=== PATIENT | male | born 1945 | race Caucasian/White ===

== ENCOUNTER 2020-02-14 11:11 | Outpatient (REF) | payer MEDICARE, OTHER, SELFPAY ==
[2020-02-14 13:40] LABS: MANUAL DIFF FLAG NO
[2020-02-14 13:45] LABS: Basophils Percent Auto 0.4 % (0-2); Eosinophils Absolute Auto 0.2 X10*3/uL (0.0-0.4); Eosinophils Percent Auto 2.5 % (0-4); Hematocrit 39.3 % (42-52); Hemoglobin 12.9 g/dl (14.0-18.0); Imm Gran Abs Auto 0.02 X10*3/uL (0.00-0.03); Imm Gran Pct Auto 0.3 % (0.0-0.4); Lymphocytes Absolute Auto 1.4 X10*3/uL (1.2-4.9); Lymphocytes Percent Auto 18.4 % (20-40); Mean Corpuscular HGB Conc 32.8 g/dl (31.0-36.0); Mean Corpuscular Volume 91.4 fL (80-98); Mean Platelet Volume 9.8 fL (9.4-12.4); Monocytes Absolute Auto 0.5 X10*3/uL (0.1-1.2); Monocytes Percent Auto 7.1 % (2-11); Neutrophils Absolute Auto 5.2 X10*3/uL (2.0-8.3); Neutrophils Percent Auto 71.3 % (45-73); Platelet Count 260 X10*3/uL (160-400); Red Cell Distribution Width 12.1 % (11.0-16.0); White Blood Count 7.3 X10*3/uL (4.8-10.8)
[2020-02-14 14:02] LABS: Estimated Average Glucose 183 mg/dL
[2020-02-14 14:14] LABS: Alanine Aminotransferase 26 U/L (0-40); Albumin Level 3.9 g/dL (3.5-5.0); Alkaline Phosphatase 70 U/L (39-117); Anion Gap 12 (12-20); Aspartate Amino Transferase 15 U/L (5-37); Bilirubin Total 0.5 mg/dL (0.0-1.0); Blood Urea Nitrogen 19 mg/dL (9-16); Calcium 8.7 mg/dL (8.4-10.2); Carbon Dioxide 29 mmol/L (22-29); Chloride 104 mmol/L (96-108); Estimated Glomerular Filt Rate 58; Glucose Fasting 207 mg/dL (60-99); Potassium 4.2 mmol/l (3.3-5.1); Sodium 141 mmol/L (135-145); Total Protein 6.4 g/dL (6.5-8.0)
[2020-02-14 14:15] LABS: Alanine Aminotransferase 27 U/L (0-40); Albumin Level 3.9 g/dL (3.5-5.0); Alkaline Phosphatase 70 U/L (39-117); Aspartate Amino Transferase 14 U/L (5-37); Bilirubin Direct 0.3 mg/dL (0.0-0.5); Bilirubin Total 0.5 mg/dL (0.0-1.0); Cholesterol 118 mg/dL; HDL Cholesterol 41 mg/dL; LDL Cholesterol Calculated 49 mg/dl; Total Protein 6.3 g/dL (6.5-8.0); Triglycerides 142 mg/dL
[2020-02-14 14:33] LABS: Creatinine Urine 195.75 mg/dL
[2020-02-14 14:47] LABS: Microalbum/Creatinine Ratio Ur 461.3 ug/mg cr
== END 2020-02-14 11:12 | disposition home or self-care (01) ==
LOC: HO.10HDL 11:11
PROVIDERS: Absent Provider Internal Medicine Cardiovascular Disease; Visit Provider Internal Medicine
DX: E11.22 Type 2 diabetes mellitus with diabetic chronic kidney disease (principal); I12.9 Hypertensive chronic kidney disease with stage 1 through stage 4 chronic kidney disease, or unspecified chronic kidney disease; N18.9 Chronic kidney disease, unspecified; I25.10 Atherosclerotic heart disease of native coronary artery without angina pectoris; E78.00 Pure hypercholesterolemia, unspecified; I48.0 Paroxysmal atrial fibrillation
CPT/HCPCS: 36415; 80053; 80061; 80076; 82043; 82248; 83036; 85025

== ENCOUNTER 2020-03-28 14:31 | Outpatient (REF) | payer MEDICARE, OTHER, SELFPAY ==
[2020-03-28 15:24] LABS: Influenza A PCR NEGATIVE (Negative); Influenza B PCR NEGATIVE (Negative); Resp Syncy Virus RNA Qual PCR NEGATIVE (Negative); SARS COV2 PCR INHOUSE NEGATIVE (Negative)
== END 2020-03-28 14:32 | disposition home or self-care (01) ==
LOC: HO.LNP 14:31
PROVIDERS: Visit Provider Internal Medicine
DX: Z20.828 Contact with and (suspected) exposure to other viral communicable diseases (principal)
CPT/HCPCS: 0241U

== ENCOUNTER 2020-07-31 09:50 | Outpatient (REF) | payer MEDICARE, OTHER, SELFPAY ==
[2020-07-31 13:12] LABS: Alanine Aminotransferase 17 U/L (0-40); Albumin Level 3.9 g/dL (3.5-5.0); Alkaline Phosphatase 75 U/L (39-117); Anion Gap 13 (12-20); Aspartate Amino Transferase 14 U/L (5-37); Bilirubin Direct 0.2 mg/dL (0.0-0.5); Bilirubin Total 0.7 mg/dL (0.0-1.0); Blood Urea Nitrogen 15 mg/dL (9-16); Calcium 9.2 mg/dL (8.4-10.2); Carbon Dioxide 28 mmol/L (22-29); Chloride 106 mmol/L (96-108); Cholesterol 160 mg/dL; Estimated Glomerular Filt Rate > 60; Glucose Fasting 216 mg/dL (60-99); HDL Cholesterol 44 mg/dL; LDL Cholesterol Calculated 73 mg/dl; Potassium 3.9 mmol/L (3.3-5.1); Sodium 143 mmol/L (135-145); Total Protein 6.4 g/dL (6.5-8.0); Triglycerides 218 mg/dL
== END 2020-07-31 09:51 | disposition home or self-care (01) ==
LOC: HO.10HDL 09:50
PROVIDERS: Visit Provider Internal Medicine Cardiovascular Disease
DX: E78.00 Pure hypercholesterolemia, unspecified (principal)
CPT/HCPCS: 36415; 80048; 80061; 80076

== ENCOUNTER 2020-09-02 15:01 | Outpatient (REF) | payer MEDICARE, OTHER, SELFPAY ==
[2020-09-02 16:56] LABS: MANUAL DIFF FLAG NO
[2020-09-02 17:01] LABS: Basophils Percent Auto 0.5 % (0-2); Eosinophils Absolute Auto 0.3 X10*3/uL (0.0-0.4); Eosinophils Percent Auto 3.2 % (0-4); Hematocrit 38.9 % (42-52); Hemoglobin 13.1 g/dl (14.0-18.0); Imm Gran Abs Auto 0.04 X10*3/uL (0.00-0.03); Imm Gran Pct Auto 0.5 % (0.0-0.4); Lymphocytes Absolute Auto 1.7 X10*3/uL (1.2-4.9); Lymphocytes Percent Auto 21.3 % (20-40); Mean Corpuscular HGB Conc 33.7 g/dl (31.0-36.0); Mean Corpuscular Hemoglobin 30.2 pg (27.0-33.0); Mean Corpuscular Volume 89.6 fL (80-98); Monocytes Absolute Auto 0.7 X10*3/uL (0.1-1.2); Monocytes Percent Auto 8.3 % (2-11); Neutrophils Absolute Auto 5.3 X10*3/uL (2.0-8.3); Neutrophils Percent Auto 66.2 % (45-73); Platelet Count 247 X10*3/uL (160-400); Red Blood Count 4.34 X10*6/uL (4.60-5.80); Red Cell Distribution Width 12.5 % (11.0-16.0); White Blood Count 8.1 X10*3/uL (4.8-10.8)
[2020-09-02 17:09] LABS: Alanine Aminotransferase 16 U/L (0-40); Albumin Level 3.9 g/dL (3.5-5.0); Alkaline Phosphatase 71 U/L (39-117); Anion Gap 12 (12-20); Aspartate Amino Transferase 13 U/L (5-37); Bilirubin Total 0.8 mg/dL (0.0-1.0); Blood Urea Nitrogen 17 mg/dL (9-16); Calcium 9.1 mg/dL (8.4-10.2); Carbon Dioxide 30 mmol/L (22-29); Chloride 106 mmol/L (96-108); Estimated Glomerular Filt Rate 57; Glucose Random 141 mg/dL (60-115); Potassium 3.9 mmol/L (3.3-5.1); Sodium 144 mmol/L (135-145); Total Protein 6.1 g/dL (6.5-8.0)
[2020-09-02 17:11] LABS: Creatinine Urine 210.44 mg/dL
[2020-09-02 17:14] LABS: Estimated Average Glucose 169 mg/dL; Hemoglobin A1c % 7.5 %
[2020-09-02 18:11] LABS: Microalbum/Creatinine Ratio Ur 1063.4 ug/mg cr
== END 2020-09-02 15:02 | disposition home or self-care (01) ==
LOC: HO.LAB 15:01
PROVIDERS: PCP Internal Medicine; Visit Provider Internal Medicine
DX: I12.9 Hypertensive chronic kidney disease with stage 1 through stage 4 chronic kidney disease, or unspecified chronic kidney disease (principal); N18.9 Chronic kidney disease, unspecified; E11.22 Type 2 diabetes mellitus with diabetic chronic kidney disease; I48.0 Paroxysmal atrial fibrillation; I25.10 Atherosclerotic heart disease of native coronary artery without angina pectoris
CPT/HCPCS: 36415; 80053; 82043; 83036; 85025

== ENCOUNTER 2020-11-26 16:34 | Outpatient (REF) | payer MEDICARE, OTHER, SELFPAY ==
--- NOTE | ~2020-11-26 | US_ITS ---
EXAMINATION: US VENOUS ULTRASOUND WITH DOPPLER LOWER EXTREMITY, LEFT CLINICAL INFORMATION: Left calf pain and swelling COMPARISON: None TECHNIQUE: Ultrasound of the deep veins is performed from the hip to the calf with compression sonography and color and pulse Doppler assessment. Spectral analysis with color-flow imaging is performed. FINDINGS: There is normal venous compression and respiratory variation and augmented flow. The visualized common femoral vein, superficial femoral vein, profunda femoral vein, popliteal vein, and the trifurcation region shows no evidence of deep venous thrombosis. There is no significant popliteal fossa cyst. No popliteal artery aneurysm. US/US venous duplex LE LT IMPRESSION: No acute DVT demonstrated in the left lower extremity.
== END 2020-11-26 16:35 | disposition home or self-care (01) ==
LOC: HO.US 16:34
PROVIDERS: PCP Internal Medicine; Visit Provider Internal Medicine
DX: M79.604 Pain in right leg (principal); R60.0 Localized edema
CPT/HCPCS: 93971

== ENCOUNTER 2020-11-27 09:21 | Outpatient (REF) | payer MEDICARE, OTHER, SELFPAY ==
[2020-11-27 10:59] LABS: D Dimer 209 NG/ML
== END 2020-11-27 09:22 | disposition home or self-care (01) ==
LOC: HO.10HDL 09:21
PROVIDERS: Visit Provider Internal Medicine
DX: I48.91 Unspecified atrial fibrillation (principal); I25.10 Atherosclerotic heart disease of native coronary artery without angina pectoris; R06.02 Shortness of breath
CPT/HCPCS: 36415; 85379; 86140

== ENCOUNTER 2021-02-26 11:42 | Outpatient (REF) | payer MEDICARE, OTHER, SELFPAY ==
[2021-02-26 14:02] LABS: MANUAL DIFF FLAG NO
[2021-02-26 14:12] LABS: Basophils Percent Auto 0.2 % (0-2); Eosinophils Absolute Auto 0.2 X10*3/uL (0.0-0.4); Eosinophils Percent Auto 2.6 % (0-4); Hemoglobin 13.4 g/dl (14.0-18.0); Imm Gran Abs Auto 0.03 X10*3/uL (0.00-0.03); Imm Gran Pct Auto 0.4 % (0.0-0.4); Lymphocytes Absolute Auto 1.6 X10*3/uL (1.2-4.9); Lymphocytes Percent Auto 18.7 % (20-40); Mean Corpuscular HGB Conc 33.5 g/dl (31.0-36.0); Mean Corpuscular Volume 89.7 fL (80.0-98.0); Mean Platelet Volume 9.8 fL (9.4-12.4); Monocytes Absolute Auto 0.6 X10*3/uL (0.1-1.2); Monocytes Percent Auto 7.3 % (2-11); Neutrophils Absolute Auto 5.9 x10*3/uL (2.0-8.3); Neutrophils Percent Auto 70.8 % (45-73); Platelet Count 250 X10*3/uL (160-400); Red Blood Count 4.46 X10*6/uL (4.60-5.80); Red Cell Distribution Width 12.2 % (11.0-16.0); White Blood Count 8.3 X10*3/uL (4.8-10.8)
[2021-02-26 14:22] LABS: Estimated Average Glucose 177 mg/dL; Hemoglobin A1c % 7.8 %
[2021-02-26 14:41] LABS: B Type Natriuretic Peptide 97 pg/mL (<100)
[2021-02-26 14:46] LABS: Creatinine Urine 194.09 mg/dL
[2021-02-26 14:55] LABS: Alanine Aminotransferase 16 U/L (0-40); Albumin Level 3.9 g/dL (3.5-5.0); Alkaline Phosphatase 73 U/L (39-117); Anion Gap 14 (12-20); Aspartate Amino Transferase 12 U/L (5-37); Bilirubin Total 0.8 mg/dL (0.0-1.0); Blood Urea Nitrogen 17 mg/dL (9-16); Calcium 8.9 mg/dL (8.4-10.2); Carbon Dioxide 27 mmol/L (22-29); Chloride 105 mmol/L (96-108); Estimated Glomerular Filt Rate 51; Glucose Random 165 mg/dL (60-115); Iron 93 mcg/dL (45-160); Percent Iron Saturation 30 % (15-50); Sodium 142 mmol/L (135-145); Total Iron Binding Capacity 310 mcg/dL (228-428); Total Protein 6.3 g/dL (6.5-8.0); Unsaturated Iron Binding 217 ug/dL
[2021-02-26 15:32] LABS: Microalbum/Creatinine Ratio Ur 1161.3 ug/mg cr
== END 2021-02-26 11:43 | disposition home or self-care (01) ==
LOC: HO.10HDL 11:42
PROVIDERS: Visit Provider Internal Medicine
DX: I12.9 Hypertensive chronic kidney disease with stage 1 through stage 4 chronic kidney disease, or unspecified chronic kidney disease (principal); M18.9 Osteoarthritis of first carpometacarpal joint, unspecified; E11.22 Type 2 diabetes mellitus with diabetic chronic kidney disease; R06.02 Shortness of breath; D64.9 Anemia, unspecified
CPT/HCPCS: 36415; 80053; 82043; 83036; 83540; 83880; 85025

== ENCOUNTER 2021-08-18 11:21 | Outpatient (REF) | payer MEDICARE, OTHER, SELFPAY ==
[2021-08-18 11:58] LABS: MANUAL DIFF FLAG NO
[2021-08-18 12:27] LABS: Basophils Absolute Auto 0.1 X10*3/uL (0.0-0.2); Basophils Percent Auto 0.7 % (0-2); Eosinophils Absolute Auto 0.4 X10*3/uL (0.0-0.4); Eosinophils Percent Auto 4.1 % (0-4); Hematocrit 37.7 % (42.0-52.0); Hemoglobin 13.1 g/dl (14.0-18.0); Imm Gran Abs Auto 0.04 X10*3/uL (0.00-0.03); Imm Gran Pct Auto 0.5 % (0.0-0.4); Lymphocytes Absolute Auto 1.6 X10*3/uL (1.2-4.9); Lymphocytes Percent Auto 19.1 % (20-40); Mean Corpuscular HGB Conc 34.7 g/dl (31.0-36.0); Mean Corpuscular Hemoglobin 31.1 pg (27.0-33.0); Mean Corpuscular Volume 89.5 fL (80.0-98.0); Mean Platelet Volume 9.8 fL (9.4-12.4); Monocytes Absolute Auto 0.6 X10*3/uL (0.1-1.2); Monocytes Percent Auto 6.7 % (2-11); Neutrophils Absolute Auto 5.9 x10*3/uL (2.0-8.3); Neutrophils Percent Auto 68.9 % (45-73); Platelet Count 257 X10*3/uL (160-400); Red Blood Count 4.21 X10*6/uL (4.60-5.80); Red Cell Distribution Width 12.1 % (11.0-16.0); White Blood Count 8.5 X10*3/uL (4.8-10.8)
[2021-08-18 12:41] LABS: Estimated Average Glucose 217 mg/dL; Hemoglobin A1c % 9.2 %
[2021-08-18 12:44] LABS: Iron 121 mcg/dL (45-160); Magnesium 2.3 mg/dL (1.6-2.6); Percent Iron Saturation 40 % (15-50); Total Iron Binding Capacity 306 mcg/dL (228-428); Unsaturated Iron Binding 185 ug/dL; Uric Acid 6.9 mg/dL (3.4-7.0)
[2021-08-18 12:47] LABS: Alanine Aminotransferase 21 U/L (0-40); Alkaline Phosphatase 78 U/L (39-117); Anion Gap 14 (12-20); Aspartate Amino Transferase 12 U/L (5-37); Bilirubin Total 0.7 mg/dL (0.0-1.0); Blood Urea Nitrogen 33 mg/dL (9-16); Calcium 9.6 mg/dL (8.4-10.2); Carbon Dioxide 23 mmol/L (22-29); Chloride 106 mmol/L (96-108); Estimated Glomerular Filt Rate 29; Glucose Random 328 mg/dL (60-115); Potassium 5.2 mmol/L (3.3-5.1); Sodium 138 mmol/L (135-145); Total Protein 6.7 g/dL (6.5-8.0)
[2021-08-18 13:07] LABS: Ferritin 78 ng/mL (20-250); Vitamin D 25-OH Total 40.8 ng/mL (>30)
[2021-08-18 13:09] LABS: Prostate Specific Antigen 2.16 ng/mL (<0.05-4.0)
[2021-08-18 14:01] LABS: Appearance Urine CLEAR; Color Urine YELLOW; Glucose Urine UA >=1000 MG/DL (NEG); Leukocyte Esterase Urine NEG (NEG); Nitrite Urine NEG (NEG); PH 5.5 (5.0-8.0); Urine Blood NEG (NEG); Urine Ketones NEG (NEG); Urine Protein 1+ MG/DL (NEG-TRACE)
[2021-08-18 14:19] LABS: RBC Urine 0 /HPF (0); Squamous Epithelial Cell Urine TRACE /LPF; WBC Urine 0 /HPF (0-4)
[2021-08-18 14:21] LABS: Amorphous Sediment Urine TRACE /LPF
[2021-08-18 14:29] LABS: Creatinine Urine 85.39 mg/dL
[2021-08-20 13:11] LABS: Calcium (PTHI) 9.5 mg/dL (8.6-10.3); PTHI 30 pg/mL (16-77)
== END 2021-08-18 11:22 | disposition home or self-care (01) ==
LOC: HO.LAB 11:21
PROVIDERS: Absent Provider Internal Medicine; PCP Internal Medicine; Visit Provider Internal Medicine Nephrology
DX: Z12.5 Encounter for screening for malignant neoplasm of prostate (principal); I12.9 Hypertensive chronic kidney disease with stage 1 through stage 4 chronic kidney disease, or unspecified chronic kidney disease; N18.2 Chronic kidney disease, stage 2 (mild); E11.22 Type 2 diabetes mellitus with diabetic chronic kidney disease; I25.10 Atherosclerotic heart disease of native coronary artery without angina pectoris; R30.0 Dysuria
CPT/HCPCS: 36415; 80053; 81001; 82043; 82306; 82728; 83036; 83540; 83735; 83970; 84153; 84550; 85025

== ENCOUNTER 2021-12-04 12:45 | Outpatient (REF) | payer MEDICARE, OTHER, SELFPAY ==
[2021-12-04 14:00] LABS: Appearance Urine Turbid; Color Urine RED; Glucose Urine UA >=1000 mg/dL (Negative); Leukocyte Esterase Urine Moderate (2+) (Negative); Nitrite Urine Positive (Negative); Urine Blood Large (3+) (Negative); Urine Ketones 15 mg/dL (Negative); Urine Protein 300 (3+) mg/dL (Neg-Trace)
[2021-12-04 14:01] LABS: UACC Culture Trigger YES
[2021-12-04 14:18] LABS: MANUAL DIFF FLAG NO
[2021-12-04 14:22] LABS: Bacteria Urine 4+ (None Seen); Hyaline Casts Urine >20 /LPF (0-2); RBC Urine >20 /HPF (0-2); Squamous Epithelial Cell Urine >20 /HPF (0-2); WBC Urine >50 /HPF (0-5)
[2021-12-04 14:31] LABS: Basophils Percent Auto 0.4 % (0-2); Eosinophils Absolute Auto 0.1 X10*3/uL (0.0-0.4); Eosinophils Percent Auto 0.9 % (0-4); Hematocrit 35.3 % (42.0-52.0); Hemoglobin 11.6 g/dl (14.0-18.0); Imm Gran Abs Auto 0.09 X10*3/uL (0.00-0.03); Imm Gran Pct Auto 1.1 % (0.0-0.4); Lymphocytes Absolute Auto 0.6 X10*3/uL (1.2-4.9); Lymphocytes Percent Auto 7.2 % (20-40); Mean Corpuscular HGB Conc 32.9 g/dl (31.0-36.0); Mean Corpuscular Hemoglobin 30.6 pg (27.0-33.0); Mean Corpuscular Volume 93.1 fL (80.0-98.0); Mean Platelet Volume 9.6 fL (9.4-12.4); Monocytes Absolute Auto 0.8 X10*3/uL (0.1-1.2); Neutrophils Absolute Auto 6.9 x10*3/uL (2.0-8.3); Neutrophils Percent Auto 81.4 % (45-73); Platelet Count 277 X10*3/uL (160-400); Red Blood Count 3.79 X10*6/uL (4.60-5.80); Red Cell Distribution Width 12.1 % (11.0-16.0); White Blood Count 8.4 X10*3/uL (4.8-10.8)
[2021-12-04 14:35] LABS: Estimated Average Glucose 232 mg/dL; Hemoglobin A1c % 9.7 %
[2021-12-04 15:12] LABS: Alanine Aminotransferase 16 U/L (0-40); Albumin Level 3.9 g/dL (3.5-5.0); Alkaline Phosphatase 86 U/L (39-117); Anion Gap 19 (12-20); Aspartate Amino Transferase 12 U/L (5-37); Bilirubin Total 0.8 mg/dL (0.0-1.0); Blood Urea Nitrogen 45 mg/dL (9-16); C Reactive Protein 15.22 mg/dL (< or = 0.50); Calcium 8.5 mg/dL (8.4-10.2); Carbon Dioxide 18 mmol/L (22-29); Chloride 106 mmol/L (96-108); Estimated Glomerular Filt Rate 22; Glucose Fasting 283 mg/dL (60-99); Potassium 5.4 mmol/L (3.3-5.1); Sodium 138 mmol/L (135-145); Total Protein 6.7 g/dL (6.5-8.0)
== END 2021-12-04 12:46 | disposition home or self-care (01) ==
LOC: HO.10HDL 12:45
PROVIDERS: Visit Provider Internal Medicine
DX: R30.0 Dysuria (principal); I10 Essential (primary) hypertension; E11.9 Type 2 diabetes mellitus without complications
CPT/HCPCS: 36415; 80053; 81001; 81003; 83036; 85025; 86140; 87086; 87088; 87186

== ENCOUNTER 2022-01-13 14:28 | Outpatient (REF) | payer MEDICARE, OTHER, SELFPAY ==
[2022-01-13 14:50] LABS: MANUAL DIFF FLAG NO
[2022-01-13 15:20] LABS: Basophils Absolute Auto 0.1 X10*3/uL (0.0-0.2); Basophils Percent Auto 0.6 % (0-2); Eosinophils Absolute Auto 0.6 X10*3/uL (0.0-0.4); Eosinophils Percent Auto 6.2 % (0-4); Hemoglobin 11.5 g/dl (14.0-18.0); Imm Gran Abs Auto 0.07 X10*3/uL (0.00-0.03); Imm Gran Pct Auto 0.8 % (0.0-0.4); Lymphocytes Absolute Auto 1.8 X10*3/uL (1.2-4.9); Lymphocytes Percent Auto 19.5 % (20-40); Mean Corpuscular HGB Conc 33.8 g/dl (31.0-36.0); Mean Corpuscular Hemoglobin 30.7 pg (27.0-33.0); Mean Corpuscular Volume 90.9 fL (80.0-98.0); Mean Platelet Volume 9.4 fL (9.4-12.4); Monocytes Absolute Auto 0.6 X10*3/uL (0.1-1.2); Neutrophils Percent Auto 65.9 % (45-73); Platelet Count 284 X10*3/uL (160-400); Red Blood Count 3.74 X10*6/uL (4.60-5.80); Red Cell Distribution Width 12.6 % (11.0-16.0); White Blood Count 9.1 X10*3/uL (4.8-10.8)
[2022-01-13 15:32] LABS: Estimated Average Glucose 229 mg/dL; Hemoglobin A1c % 9.6 %
[2022-01-13 15:46] LABS: Alanine Aminotransferase 36 U/L (0-40); Alkaline Phosphatase 81 U/L (39-117); Anion Gap 16 (12-20); Aspartate Amino Transferase 19 U/L (5-37); Bilirubin Total 0.5 mg/dL (0.0-1.0); Blood Urea Nitrogen 40 mg/dL (9-16); Calcium 8.9 mg/dL (8.4-10.2); Carbon Dioxide 17 mmol/L (22-29); Chloride 110 mmol/L (96-108); Estimated Glomerular Filt Rate 25; Glucose Random 284 mg/dL (60-115); Potassium 5.2 mmol/L (3.3-5.1); Sodium 138 mmol/L (135-145); Total Protein 6.6 g/dL (6.5-8.0)
[2022-01-13 15:53] LABS: Creatinine Urine 56.04 mg/dL; Microalbum/Creatinine Ratio Ur 158.8 ug/mg cr
== END 2022-01-13 14:29 | disposition home or self-care (01) ==
LOC: HO.LAB 14:28
PROVIDERS: PCP Internal Medicine; Visit Provider Internal Medicine
DX: E11.22 Type 2 diabetes mellitus with diabetic chronic kidney disease (principal); I12.9 Hypertensive chronic kidney disease with stage 1 through stage 4 chronic kidney disease, or unspecified chronic kidney disease; I25.10 Atherosclerotic heart disease of native coronary artery without angina pectoris; N18.9 Chronic kidney disease, unspecified; I48.0 Paroxysmal atrial fibrillation
CPT/HCPCS: 36415; 80053; 82043; 83036; 84443; 85025

== ENCOUNTER 2022-01-26 12:24 | Outpatient (REF) | payer MEDICARE, OTHER, SELFPAY ==
[2022-01-26 13:20] LABS: Influenza A PCR NEGATIVE (Negative); Influenza B PCR NEGATIVE (Negative); Resp Syncy Virus RNA Qual PCR NEGATIVE (Negative); SARS COV2 PCR INHOUSE POSITIVE (Negative)
== END 2022-01-26 12:25 | disposition home or self-care (01) ==
LOC: HO.LNP 12:24
PROVIDERS: Visit Provider Internal Medicine
DX: Z20.822 Contact with and (suspected) exposure to COVID-19 (principal); R05.9 Cough, unspecified; R50.9 Fever, unspecified
CPT/HCPCS: 0241U

== ENCOUNTER 2022-06-22 11:44 | Outpatient (REF) | payer MEDICARE, OTHER, SELFPAY ==
[2022-06-22 13:40] LABS: MANUAL DIFF FLAG NO
[2022-06-22 13:54] LABS: Basophils Percent Auto 0.5 % (0-2); Eosinophils Absolute Auto 0.2 X10*3/uL (0.0-0.4); Eosinophils Percent Auto 1.9 % (0-4); Hemoglobin 13.3 g/dl (14.0-18.0); Imm Gran Abs Auto 0.06 X10*3/uL (0.00-0.03); Imm Gran Pct Auto 0.7 % (0.0-0.4); Lymphocytes Absolute Auto 1.5 X10*3/uL (1.2-4.9); Lymphocytes Percent Auto 18.5 % (20-40); Mean Corpuscular HGB Conc 33.3 g/dl (31.0-36.0); Mean Corpuscular Hemoglobin 30.7 pg (27.0-33.0); Mean Corpuscular Volume 92.4 fL (80.0-98.0); Mean Platelet Volume 9.6 fL (9.4-12.4); Monocytes Absolute Auto 0.6 X10*3/uL (0.1-1.2); Monocytes Percent Auto 6.9 % (2-11); Neutrophils Absolute Auto 5.9 x10*3/uL (2.0-8.3); Neutrophils Percent Auto 71.5 % (45-73); Platelet Count 247 X10*3/uL (160-400); Red Blood Count 4.33 X10*6/uL (4.60-5.80); Red Cell Distribution Width 11.7 % (11.0-16.0); White Blood Count 8.2 X10*3/uL (4.8-10.8)
[2022-06-22 14:09] LABS: Estimated Average Glucose 194 mg/dL; Hemoglobin A1c % 8.4 %
[2022-06-22 14:20] LABS: Alanine Aminotransferase 23 U/L (0-40); Albumin Level 4.1 g/dL (3.5-5.0); Alkaline Phosphatase 67 U/L (39-117); Anion Gap 14 (12-20); Aspartate Amino Transferase 14 U/L (5-37); Bilirubin Total 0.6 mg/dL (0.0-1.0); Blood Urea Nitrogen 34 mg/dL (9-16); Calcium 9.3 mg/dL (8.4-10.2); Carbon Dioxide 23 mmol/L (22-29); Chloride 108 mmol/L (96-108); Estimated Glomerular Filt Rate 26; Glucose Random 254 mg/dL (60-115); Potassium 5.8 mmol/L (3.3-5.1); Sodium 139 mmol/L (135-145); Total Protein 6.5 g/dL (6.5-8.0)
[2022-06-22 14:44] LABS: Thyroid Stimulating Hormone 1.86 uIU/mL (0.32-4.0); Vitamin B12 1622 pg/mL (200-900)
[2022-06-22 15:43] LABS: Creatinine Urine 92.45 mg/dL; Microalbum/Creatinine Ratio Ur 85.4 ug/mg cr
== END 2022-06-22 11:45 | disposition home or self-care (01) ==
LOC: HO.10HDL 11:44
PROVIDERS: Visit Provider Internal Medicine
DX: I25.10 Atherosclerotic heart disease of native coronary artery without angina pectoris (principal); I12.9 Hypertensive chronic kidney disease with stage 1 through stage 4 chronic kidney disease, or unspecified chronic kidney disease; E11.22 Type 2 diabetes mellitus with diabetic chronic kidney disease; N18.9 Chronic kidney disease, unspecified; R53.83 Other fatigue
CPT/HCPCS: 36415; 80053; 82043; 82607; 83036; 84443; 85025

== ENCOUNTER 2022-09-21 13:07 | Outpatient (REF) | payer MEDICARE, OTHER, SELFPAY ==
--- NOTE | ~2022-09-21 | XR_ITS ---
EXAMINATION: XR CHEST CLINICAL INFORMATION: Hypertension, coronary artery disease COMPARISON: 08/31/2019 TECHNIQUE: 2 views of the chest were obtained. FINDINGS: There is no gross pneumothorax. Heart size is normal. No pleural effusion. No focal consolidation to suggest pneumonia. Degenerative changes in the thoracic spine. Retrocardiac air-fluid level. XR/XR chest 2V IMPRESSION: No focal consolidation to suggest pneumonia. Retrocardiac air-fluid level. CT scan of 08/03/2018 demonstrated a large hiatal hernia.
[2022-09-21 14:06] LABS: MANUAL DIFF FLAG NO
[2022-09-21 14:14] LABS: Basophils Absolute Auto 0.1 X10*3/uL (0.0-0.2); Basophils Percent Auto 0.6 % (0-2); Eosinophils Absolute Auto 0.2 X10*3/uL (0.0-0.4); Eosinophils Percent Auto 1.9 % (0-4); Hematocrit 36.9 % (42.0-52.0); Hemoglobin 12.4 g/dl (14.0-18.0); Imm Gran Abs Auto 0.15 X10*3/uL (0.00-0.03); Imm Gran Pct Auto 1.8 % (0.0-0.4); Lymphocytes Absolute Auto 1.5 X10*3/uL (1.2-4.9); Lymphocytes Percent Auto 17.9 % (20-40); Mean Corpuscular HGB Conc 33.6 g/dl (31.0-36.0); Mean Corpuscular Hemoglobin 30.9 pg (27.0-33.0); Mean Platelet Volume 9.6 fL (9.4-12.4); Monocytes Absolute Auto 0.6 X10*3/uL (0.1-1.2); Monocytes Percent Auto 7.4 % (2-11); Neutrophils Percent Auto 70.4 % (45-73); Platelet Count 253 X10*3/uL (160-400); Red Blood Count 4.01 X10*6/uL (4.60-5.80); White Blood Count 8.5 X10*3/uL (4.8-10.8)
[2022-09-21 14:23] LABS: D Dimer High Sensitivity < 150 NG/ML
[2022-09-21 14:37] LABS: Estimated Average Glucose 223 mg/dL; Hemoglobin A1c % 9.4 %
[2022-09-21 14:49] LABS: B Type Natriuretic Peptide 29 pg/mL (<100)
[2022-09-21 14:50] LABS: Alanine Aminotransferase 22 U/L (0-40); Alkaline Phosphatase 80 U/L (39-117); Anion Gap 13 (12-20); Aspartate Amino Transferase 14 U/L (5-37); Bilirubin Total 0.6 mg/dL (0.0-1.0); Blood Urea Nitrogen 43 mg/dL (9-16); Calcium 9.6 mg/dL (8.4-10.2); Carbon Dioxide 19 mmol/L (22-29); Chloride 112 mmol/L (96-108); Estimated Glomerular Filt Rate 25; Glucose Random 276 mg/dL (60-115); Potassium 5.8 mmol/L (3.3-5.1); Sodium 138 mmol/L (135-145); Total Protein 7.2 g/dL (6.5-8.0)
[2022-09-21 15:08] LABS: Thyroid Stimulating Hormone 1.59 uIU/mL (0.32-4.0)
== END 2022-09-21 13:08 | disposition home or self-care (01) ==
LOC: HO.10HDL 13:07
PROVIDERS: PCP Internal Medicine; Visit Provider Internal Medicine
DX: I25.10 Atherosclerotic heart disease of native coronary artery without angina pectoris (principal); I12.9 Hypertensive chronic kidney disease with stage 1 through stage 4 chronic kidney disease, or unspecified chronic kidney disease; E11.22 Type 2 diabetes mellitus with diabetic chronic kidney disease; N18.9 Chronic kidney disease, unspecified; R53.83 Other fatigue; I48.0 Paroxysmal atrial fibrillation
CPT/HCPCS: 36415; 71046; 80053; 83036; 83880; 84443; 85025; 85379

== ENCOUNTER 2022-10-09 12:26 | Emergency (ER) | payer MEDICARE, OTHER, SELFPAY ==
--- NOTE | ~2022-10-09 | XR_ITS ---
EXAMINATION: XR CHEST CLINICAL INFORMATION: Shortness of breath COMPARISON: 09/21/2022 TECHNIQUE: 2 views of the chest were obtained. FINDINGS: No acute pulmonary abnormality. Lungs are adequately expanded. No airspace disease, interstitial edema or pleural effusion. Cardiac silhouette is chronically enlarged. Again noted is a large hiatal hernia. Mild hyperkyphosis of the degenerated thoracic spine. Small focus of calcification or intra-articular ossific body projects superior to the glenoid at the left shoulder. XR/XR chest 2V IMPRESSION: * No acute pulmonary disease. * Cardiomegaly without pulmonary edema or pleural effusion. * Large hiatal hernia.
--- NOTE | 2022-10-09 12:31 | ECG_ITS ---
Test Reason : SYMTOMATIC BRADYCARDIA Blood Pressure : / mmHG Vent. Rate : 052 BPM Atrial Rate : 052 BPM P-R Int : 202 ms QRS Dur : 090 ms QT Int : 436 ms P-R-T Axes : 000 -20 001 degrees QTc Int : 405 ms Sinus bradycardia with Premature atrial complexes in a pattern of bigeminy Minimal voltage criteria for LVH, may be normal variant ( R in aVL ) Borderline ECG When compared with ECG of 07-AUG-2018 09:22, Vent. rate has decreased BY 27 BPM Criteria for Inferior infarct are no longer Present T wave inversion no longer evident in Anterolateral leads QT has shortened Referred By: Generic ED Physician Electronically Signed By:JOYCE MCGRATH MD
[2022-10-09 13:05] VITALS: BP 128/77; PULSE 49; RESP 16; TEMP 36.6; O2SAT 99; BMI 31.8
--- NOTE | 2022-10-09 13:05 | ED_ITS ---
HPI - General Adult General Chief complaint: Weakness Stated complaint: symatic Time Seen by Provider: 10/09/22 18:02 Source: patient, family (Son and daughter), RN notes reviewed and old records reviewed Mode of arrival: ambulatory Limitations: no limitations History of Present Illness HPI narrative: 77-year-old male with past medical history significant for AFib on Xarelto, chronic kidney disease presents for evaluation of weakness and shortness of breath. Patient reports he has had increasing shortness of breath on exertion for the last week Denies any chest pain, cough, palpitations He reports that he usually has a slower heart rate but his rate is usually ?in the lower 60s. ? He denies any recent medication changes. Denies any lower extremity edema He follows with [facility] No other complaints or concerns at this time Although the patient does admit that he has been under increased stress recently as his is in the hospital Related Data Allergies Allergy/AdvReac Type Severity Reaction Status Date / Time No Known Allergies Allergy Unverified 12/14/19 15:08 [No Known Allergies*] Review of Systems Constitutional: Constitutional: Denies fatigue and Reports weakness Cardiovascular: Cardiovascular: Denies chest pain, Denies leg edema and Reports dyspnea on exertion Respiratory: Respiratory: Reports dyspnea on exertion Gastrointestinal: Gastrointestinal: Denies abdominal pain, Denies nausea and Denies vomiting Musculoskeletal: Musculoskeletal: Denies back pain Neurologic: Reports weakness Endocrine: Endocrine: Denies fatigue PMFSH Social History Social History Alcohol intake: never Smoked in Last 30 Days: No Use of substances other than those prescribed or required for medical reasons: No Advance Directives: No Advance Directives Information Provided: Yes Physical Exam ED Vital Signs: Vital Signs - 24 hr 10/09/22 13:05 10/09/22 16:53 10/09/22 16:55 Temperature 97.9 F 97.6 F Pulse Rate 49 L 55 55 Respiratory Rate 16 21 H Blood Pressure 128/77 140/50 H 140/50 H Pulse Oximetry 99 98 Oxygen Delivery Method Room Air Room Air 10/09/22 16:56 10/09/22 17:00 Temperature Pulse Rate 71 71 Respiratory Rate Blood Pressure 131/52 L 113/53 L Pulse Oximetry Oxygen Delivery Method BMI result Body Mass Index 31.8 Const General: healthy appearing, comfortable, no acute distress, alert and awake Nutritional Appearance: well nourished Orientation/consciousness: patient oriented x3 HENMT Head: Yes normocephalic and Yes atraumatic Eyes Eyelids: Yes eyelids normal Conjunctivae: conjunctivae normal Sclerae: sclerae normal Corneas: corneas normal Pupils: Equal, round and reactive pupils present EOM: EOMs intact bilaterally Neck Neck: Yes full ROM Resp Effort & Inspection: normal respiratory effort, able to speak in complete sentences, no audible wheezes and not labored Auscultation: clear to auscultation bilaterally Cardio Rate: bradycardic Rhythm: regular rhythm Skin General skin exam: no rashes or lesions noted and elasticity normal Neuro General: patient oriented x3 Cranial nerves: Yes Equal, round and reactive pupils present and Yes Bilaterally intact EOM present Cognition (Neuro): normal cognition Extrem Other: Moving all extremities well without any obvious deformities Course Course Course Narrative: RME: 77 yo male w/PMHx of afib on Xarelto, sent in today by Dr. Skinner after being seen at his office for weakness, SOB on exertion x1 week. EKG in office significant for afib with bradycardia and pauses. No fever, N/V, abd pain, blood in stool. Patient appears pale. HR in 40's. EKG, labs, CXR ordered. Full HPI, ROS and PE to be performed by primary ED provider. Medical Decision Making Medical Decision Making [facility] Narrative: 77-year-old male presents for evaluation of shortness of breath with exertion. He is anticoagulated on Xarelto for history of AFib. His EKG shows sinus rhythm with PACs in a bigeminy pattern. No ischemic changes. While in the ER his heart rate has been averaging approximately 45-50 beats per minute. His blood pressure has been maintaining. This could be contributing to the patient's shortness of breath on exertion. He takes metoprolol 75 mg daily. I asked him to cut this to 25 mg daily until he follows up with Cardiology on Wednesday. His labs were significant for a very mild hyperkalemia of 5.4. His creatinine was 2.08 which is slightly improved from his baseline. The patient's troponin was less than 2.7 Differential Diagnosis Dyspnea on exertion Congestive heart failure Coronary artery disease Cardiac arrhythmia Weakness Pneumonia Failure to thrive Admission/Observation Consideration of admission/observation: Escalation of care including admission/observation considered Lab Data [facility] Lab Attestation statement: I reviewed the patient's lab results. Mild anemia consistent with recent baseline. Slight hyperkalemia to 5.4. Elevated glucose the to 91 with no evidence of DKA. 10/09/22 13:29 10/09/22 13:29 Labs: Lab Results 10/09/22 10/09/22 10/09/22 Range/Units 13:29 13:29 13:29 WBC 10.0 (4.8-10.8) X10*3/uL RBC 3.83 L (4.60-5.80) X10*6/uL Hgb 11.6 L (14.0-18.0) g/dl Hct 35.5 L (42.0-52.0) % MCV 92.7 (80.0-98.0) fL MCH 30.3 (27.0-33.0) pg MCHC 32.7 (31.0-36.0) g/dl RDW 12.5 (11.0-16.0) % Plt Count 227 (160-400) X10*3/uL MPV 9.2 L (9.4-12.4) fL Immature Gran % (Auto) 0.8 H (0.0-0.4) % Neut % (Auto) 73.6 H (45-73) % Lymph % (Auto) 15.5 L (20-40) % Hood % (Auto) 7.3 (2-11) % Eos % (Auto) 2.3 (0-4) % Baso % (Auto) 0.5 (0-2) % Lymph # (Auto) 1.6 (1.2-4.9) X10*3/uL Hood # (Auto) 0.7 (0.1-1.2) X10*3/uL Eos # (Auto) 0.2 (0.0-0.4) X10*3/uL Baso # (Auto) 0.1 (0.0-0.2) X10*3/uL Abs Immat Gran (auto) 0.08 H (0.00-0.03) X10*3/uL Absolute Neuts (auto) 7.4 (2.0-8.3) x10*3/uL Absolute Nucleated RBC 0.000 (0.0-0.012) X10*3/uL Nucleated RBC % (auto) 0.0 (0.0-0.2) /100WBC PT (10.0-13.1) SEC INR (0.9-1.1) Sodium 141 (135-145) mmol/L Potassium 5.4 H (3.3-5.1) mmol/L Chloride 115 H (96-108) mmol/L Carbon Dioxide 18 L (22-29) mmol/L Anion Gap 13 (12-20) BUN 33 H (9-16) mg/dL Creatinine 2.07 H (0.5-1.4) mg/dL Estim Creat Clear Calc 35.4 Estimated GFR 31 Random Glucose 291 H (60-115) mg/dL Calcium 9.7 (8.4-10.2) mg/dL Magnesium 2.4 (1.6-2.6) mg/dL Total Bilirubin 0.7 (0.0-1.0) mg/dL Direct Bilirubin 0.1 (0.0-0.5) mg/dL AST 13 (5-37) U/L ALT 23 (0-40) U/L Alkaline Phosphatase 89 (39-117) U/L Troponin I High Sens < 2.7 (<3.5-35.0) ng/L B-Natriuretic Peptide (<100) pg/mL Total Protein 6.9 (6.5-8.0) g/dL Albumin 3.9 (3.5-5.0) g/dL 10/09/22 10/09/22 Range/Units 13:29 13:29 WBC (4.8-10.8) X10*3/uL RBC (4.60-5.80) X10*6/uL Hgb (14.0-18.0) g/dl Hct (42.0-52.0) % MCV (80.0-98.0) fL MCH (27.0-33.0) pg MCHC (31.0-36.0) g/dl RDW (11.0-16.0) % Plt Count (160-400) X10*3/uL MPV (9.4-12.4) fL Immature Gran % (Auto) (0.0-0.4) % Neut % (Auto) (45-73) % Lymph % (Auto) (20-40) % Hood % (Auto) (2-11) % Eos % (Auto) (0-4) % Baso % (Auto) (0-2) % Lymph # (Auto) (1.2-4.9) X10*3/uL Hood # (Auto) (0.1-1.2) X10*3/uL Eos # (Auto) (0.0-0.4) X10*3/uL Baso # (Auto) (0.0-0.2) X10*3/uL Abs Immat Gran (auto) (0.00-0.03) X10*3/uL Absolute Neuts (auto) (2.0-8.3) x10*3/uL Absolute Nucleated RBC (0.0-0.012) X10*3/uL Nucleated RBC % (auto) (0.0-0.2) /100WBC PT 11.0 (10.0-13.1) SEC INR 1.0 (0.9-1.1) Sodium (135-145) mmol/L Potassium (3.3-5.1) mmol/L Chloride (96-108) mmol/L Carbon Dioxide (22-29) mmol/L Anion Gap (12-20) BUN (9-16) mg/dL Creatinine (0.5-1.4) mg/dL Estim Creat Clear Calc Estimated GFR Random Glucose (60-115) mg/dL Calcium (8.4-10.2) mg/dL Magnesium (1.6-2.6) mg/dL Total Bilirubin (0.0-1.0) mg/dL Direct Bilirubin (0.0-0.5) mg/dL AST (5-37) U/L ALT (0-40) U/L Alkaline Phosphatase (39-117) U/L Troponin I High Sens (<3.5-35.0) ng/L B-Natriuretic Peptide 54 (<100) pg/mL Total Protein (6.5-8.0) g/dL Albumin (3.5-5.0) g/dL Independent Interpretation I performed an independent interpretation of an: EKG (Sinus rhythm with PACs in a bigeminal pattern nonischemic EKG) and Plain X-Ray (No acute pathology) Radiology Impression Discussion of test interpretation with radiology: I have reviewed the radiolog ist's reading. (Enlarged heart with no evidence of heart failure) Discharge Plan Discharge Clinical Impression: Dyspnea on exertion Patient Disposition: Home, Self-Care Instructions: Dyspnea (ED) Additional Instructions: Your workup in the emergency department today was reassuring Your blood counts were slightly low today with a hemoglobin of 11.6 You have had a mild anemia for at least a few years now and is likely related to your chronic kidney disease Your kidney function today is actually slightly better than it has been Your heart rate was slightly low today which may be contributing to your licha rtness of breath with exertion For this reason I want you to take 1/2 a tab of the metoprolol instead of the 1 and half tabs Call your parts counter associate and your primary doctor 1st thing on Wednesday morning to schedule follow-up and explain the changes that we made Return for new or worsening symptoms
--- NOTE | 2022-10-09 13:07 | ECG_ITS ---
Test Reason : WEAKNESS Blood Pressure : / mmHG Vent. Rate : 055 BPM Atrial Rate : 055 BPM P-R Int : 198 ms QRS Dur : 090 ms QT Int : 442 ms P-R-T Axes : 068 -19 000 degrees QTc Int : 422 ms Sinus bradycardia with Premature atrial complexes in a pattern of bigeminy Minimal voltage criteria for LVH, may be normal variant ( R in aVL ) Borderline ECG When compared with ECG of 09-OCT-2022 12:51, No significant change was found Referred By: Marleni Fonseca Electronically Signed By:JOYCE MCGRATH MD
[2022-10-09 13:35] LABS: MANUAL DIFF FLAG NO
[2022-10-09 13:38] LABS: Basophils Absolute Auto 0.1 X10*3/uL (0.0-0.2); Basophils Percent Auto 0.5 % (0-2); Eosinophils Absolute Auto 0.2 X10*3/uL (0.0-0.4); Eosinophils Percent Auto 2.3 % (0-4); Hematocrit 35.5 % (42.0-52.0); Hemoglobin 11.6 g/dl (14.0-18.0); Imm Gran Abs Auto 0.08 X10*3/uL (0.00-0.03); Imm Gran Pct Auto 0.8 % (0.0-0.4); Lymphocytes Absolute Auto 1.6 X10*3/uL (1.2-4.9); Lymphocytes Percent Auto 15.5 % (20-40); Mean Corpuscular HGB Conc 32.7 g/dl (31.0-36.0); Mean Corpuscular Hemoglobin 30.3 pg (27.0-33.0); Mean Corpuscular Volume 92.7 fL (80.0-98.0); Mean Platelet Volume 9.2 fL (9.4-12.4); Monocytes Absolute Auto 0.7 X10*3/uL (0.1-1.2); Monocytes Percent Auto 7.3 % (2-11); Neutrophils Absolute Auto 7.4 x10*3/uL (2.0-8.3); Neutrophils Percent Auto 73.6 % (45-73); Platelet Count 227 X10*3/uL (160-400); Red Blood Count 3.83 X10*6/uL (4.60-5.80); Red Cell Distribution Width 12.5 % (11.0-16.0)
[2022-10-09 13:56] LABS: Alanine Aminotransferase 23 U/L (0-40); Albumin Level 3.9 g/dL (3.5-5.0); Alkaline Phosphatase 89 U/L (39-117); Anion Gap 13 (12-20); Aspartate Amino Transferase 13 U/L (5-37); Bilirubin Direct 0.1 mg/dL (0.0-0.5); Bilirubin Total 0.7 mg/dL (0.0-1.0); Blood Urea Nitrogen 33 mg/dL (9-16); Calcium 9.7 mg/dL (8.4-10.2); Carbon Dioxide 18 mmol/L (22-29); Chloride 115 mmol/L (96-108); Creatinine Clr Calc Pharmacy 35.4; Estimated Glomerular Filt Rate 31; Glucose Random 291 mg/dL (60-115); Magnesium 2.4 mg/dL (1.6-2.6); Potassium 5.4 mmol/L (3.3-5.1); Sodium 141 mmol/L (135-145); Total Protein 6.9 g/dL (6.5-8.0)
[2022-10-09 14:35] LABS: Troponin-I High Sensitivity < 2.7 ng/L (<3.5-35.0)
[2022-10-09 16:53] VITALS: BP 140/50; PULSE 55; RESP 21; TEMP 36.4; O2SAT 98
[2022-10-09 16:55] VITALS: BP 140/50; PULSE 55
[2022-10-09 16:56] VITALS: BP 131/52; PULSE 71
[2022-10-09 17:00] VITALS: BP 113/53; PULSE 71
[2022-10-09 17:08] LABS: B Type Natriuretic Peptide 54 pg/mL (<100)
--- NOTE | 2022-10-09 17:30 | PC.NURSE ---
axox3. mallika irreg rythm on monitor. states there have been changes to cardiac meds recently. no pedal edema. ls cta. no unilat neuro deficits.
[2022-10-09 18:37] VITALS: BP 128/61; PULSE 61; RESP 18; O2SAT 99
== END 2022-10-09 19:23 | disposition home or self-care (01) ==
PROVIDERS: Physician Assistant; Emergency Provider Emergency Medicine; PCP Internal Medicine
DX: R06.02 Shortness of breath (principal); R00.1 Bradycardia, unspecified; Z79.899 Other long term (current) drug therapy
CPT/HCPCS: 36415; 71046; 80048; 80076; 83735; 83880; 84484; 85025; 85610; 93005; 99283; 99284

== ENCOUNTER → 2022-10-09 12:31 | Outpatient (BNV) | payer MEDICARE, OTHER, SELFPAY | PROVIDERS: Emergency Provider Emergency Medicine; PCP Internal Medicine; Visit Provider Internal Medicine Cardiovascular Disease | DX: R00.1 Bradycardia, unspecified (principal) | CPT/HCPCS: 93010 ==

== ENCOUNTER 2023-04-06 09:47 | Outpatient (REF) | payer MEDICARE, OTHER, SELFPAY ==
[2023-04-06 10:03] LABS: MANUAL DIFF FLAG NO
[2023-04-06 10:55] LABS: Basophils Absolute Auto 0.1 X10*3/uL (0.0-0.2); Basophils Percent Auto 0.6 % (0-2); Eosinophils Absolute Auto 0.2 X10*3/uL (0.0-0.4); Eosinophils Percent Auto 2.7 % (0-4); Hematocrit 32.7 % (42.0-52.0); Hemoglobin 10.6 g/dl (14.0-18.0); Imm Gran Abs Auto 0.08 X10*3/uL (0.00-0.03); Imm Gran Pct Auto 0.9 % (0.0-0.4); Lymphocytes Absolute Auto 1.9 X10*3/uL (1.2-4.9); Lymphocytes Percent Auto 21.4 % (20-40); Mean Corpuscular HGB Conc 32.4 g/dl (31.0-36.0); Mean Corpuscular Hemoglobin 30.2 pg (27.0-33.0); Mean Corpuscular Volume 93.2 fL (80.0-98.0); Monocytes Absolute Auto 0.7 X10*3/uL (0.1-1.2); Neutrophils Percent Auto 66.4 % (45-73); Platelet Count 248 X10*3/uL (160-400); Red Blood Count 3.51 X10*6/uL (4.60-5.80); Red Cell Distribution Width 12.2 % (11.0-16.0)
[2023-04-06 11:26] LABS: Estimated Average Glucose 214 mg/dL; Hemoglobin A1c % 9.1 % (<6.0)
[2023-04-06 11:53] LABS: Alanine Aminotransferase 24 U/L (0-40); Albumin Level 3.9 g/dL (3.5-5.0); Alkaline Phosphatase 65 U/L (39-117); Anion Gap 14 (12-20); Aspartate Amino Transferase 15 U/L (5-37); Bilirubin Total 0.4 mg/dL (0.0-1.0); Blood Urea Nitrogen 37 mg/dL (9-16); Calcium 9.3 mg/dL (8.4-10.2); Carbon Dioxide 17 mmol/L (22-29); Chloride 114 mmol/L (96-108); Estimated Glomerular Filt Rate 24; Glucose Random 236 mg/dL (60-115); Iron 107 mcg/dL (45-160); Percent Iron Saturation 45 % (15-50); Potassium 5.5 mmol/L (3.3-5.1); Sodium 139 mmol/L (135-145); Total Iron Binding Capacity 236 mcg/dL (228-428); Total Protein 6.6 g/dL (6.5-8.0); Unsaturated Iron Binding 129 ug/dL
== END 2023-04-06 09:48 | disposition home or self-care (01) ==
LOC: HO.LAB 09:47
PROVIDERS: PCP Internal Medicine; Visit Provider Internal Medicine
DX: E11.9 Type 2 diabetes mellitus without complications (principal); D64.9 Anemia, unspecified; N18.9 Chronic kidney disease, unspecified
CPT/HCPCS: 36415; 80053; 83036; 83540; 85025

== ENCOUNTER → 2023-06-23 14:43 | Outpatient (REF) | payer MEDICARE, OTHER, SELFPAY ==
--- NOTE | 2023-06-23 14:46 | CA_ITS ---
Transthoracic Echocardiogram Patient (Last, First, Middle): Garrick Diallo W Gender: Male Date of : 1945 Age: 78 Procedure Date: 06/23/2023 Procedure Type: Transthoracic Echocardiogram Location: OP Height: 180.34 cm Weight: 101.15 kg BSA: 2.21 m2 Heart Rate: bpm BP: 110 / 68 mmHg Hotel Services Supervisor: BIRGIT Referring MD: Andres Skinner MD Home Theater Installer: Dylon Jefferson MD Symptoms: AFIB FATIGUE I48.91 Study Quality: Adequate ECG Rhythm: Atrial Fibrillation Conclusions: - 1. Normal LV ejection fraction 55-60% with mild LVH 2. Mild mitral regurgitation 3. Normal measured RV systolic pressure 4. Upper limits of normal ascending aortic size 5. No gross pericardial effusion Findings Left Ventricle Normal left ventricular size and systolic function. There is mildly increased left ventricular wall thickness. The visually estimated ejection fraction is between 55-60%. Diastolic function is indeterminate on the basis of available data. Right Ventricle Normal right ventricular cavity size and systolic function. Atria The left atrium is likely dilated. Interatrial shunt cannot be excluded. The right atrium was not well visualized. Aortic Valve Normal aortic valve structure and function. There is no aortic valve stenosis. There is no aortic valve regurgitation. Mitral Valve There is mild anterior and posterior mitral leaflet thickening. There is mild mitral annular calcification. There is mild mitral valve regurgitation. There is no mitral valve stenosis. Pulmonic Valve The pulmonic valve is likely normal. There is trace pulmonic valve regurgitation. Tricuspid Valve Normal tricuspid valve structure. There is mild tricuspid valve regurgitation. The right ventricular systolic pressure is normal. The right ventricular systolic pressure is 31 mmHg. Normal right atrial pressure. There is no evidence of pulmonary hypertension. Great Vessels The pulmonary artery was not well visualized. Venous The inferior vena cava is normal in size and collapses greater than 50% with inspiration. Pericardium/Pleural There is no evidence of pericardial effusion. Prior Study Comparison Changes noted compared to prior study dated: 08/05/2018. RV systolic pressure is within normal limits Measurements 2D Linear Measurements IVSd: 1.29 0.6-0.9/0.6-1.0 cm LVIDd: 5.01 3.9-5.3/4.2-5.9 cm LVIDd Index: 2.27 2.4-3.2/2.2-3.1 cm/m2 LVIDs: 3.00 2.0-3.6 cm LVPWd: 1.17 0.7-1.1 cm LA Diam: 3.50 2.7-3.8/3.0-4.0 cm LAIDs Index: 1.58 1.5-2.3 cm/m2 LV Mass: 302.72 67-162/88-224 g LV Mass Index: 136.98 43-95/49-115 g/m2 LVOT Diam: 2.30 3.0+(-)1.3 cm 2D Systolic Function EF 4C: 53.30 >55% EF 2C: 55.50 >55% EF BiP: 55.90 >55% Mitral Valve MV Pk E: 0.63 MV PK A: 0.64 MV Decel Time: 306.00 E/A: 1.00 E'Lateral: 7.27 E'Medial: 5.05 E/E' Med: 12.40 E/E' Lat: 8.60 PHT: 89.00 MVA PHT: 2.47 Decel [place]: 2.11 Aortic Valve AoV Pk Tobias: 1.90 AoV Mn Tobias: 1.09 AoV VTI: 0.36 AoV Pk Grad: 14.00 Aov Mn Grad: 6.00 ELYSE Cont.VTI: 2.61 LVOT LVOT Pk Tobias: 1.01 LVOT Mn Tobias: 0.59 LVOT VTI: 0.23 LVOT Pk Grad: 4.00 LVOT Mn Grad: 2.00 LVOT Diam: 2.30 LVOT Area: 4.15 Diastolic Function MV Pk E: 0.63 MV Pk A: 0.64 E/A: 1.00 E'Medial: 5.05 E/E' Med: 12.40 E' Laterial: 7.27 E/E' Lat: 8.60 Right Ventricle TAPSE (mm): 26.70 TVS' Tobias: 16.10 Tricuspid Valve TR Pk Tobias: 2.66 TR Pk Grad: 28.00 RA Press: 3.00 RVSP: 31.00 Great Vessels Aorta Sinus of Valsalva: 3.45 2.0-3.[address] [place]: 2.62 1.7-3.4 cm Ao Asc: 3.60 2.1-3.4 cm Updated in Other Vendor System with Status of Final Dylon Li MD electronically signed on 06/24/2023 12:34:28 PM with status of Final
== END ==
LOC: HO.CARD 14:43
PROVIDERS: PCP Internal Medicine; Visit Provider Internal Medicine
DX: I48.91 Unspecified atrial fibrillation (principal)
CPT/HCPCS: 93306

== ENCOUNTER → 2023-06-23 14:46 | Outpatient (BNV) | payer MEDICARE, OTHER, SELFPAY | PROVIDERS: PCP Internal Medicine; Visit Provider Internal Medicine Cardiovascular Disease | DX: I34.0 Nonrheumatic mitral (valve) insufficiency (principal); I34.81 Nonrheumatic mitral (valve) annulus calcification | CPT/HCPCS: 93306 ==

== ENCOUNTER 2023-06-29 12:07 | Outpatient (REF) | payer MEDICARE, OTHER, SELFPAY ==
[2023-06-29 12:38] LABS: MANUAL DIFF FLAG NO
[2023-06-29 13:21] LABS: Basophils Absolute Auto 0.1 X10*3/uL (0.0-0.2); Basophils Percent Auto 0.7 % (0-2); Eosinophils Absolute Auto 0.1 X10*3/uL (0.0-0.4); Hematocrit 34.6 % (42.0-52.0); Hemoglobin 11.5 g/dl (14.0-18.0); Imm Gran Abs Auto 0.05 X10*3/uL (0.00-0.03); Imm Gran Pct Auto 0.7 % (0.0-0.4); Lymphocytes Absolute Auto 1.5 X10*3/uL (1.2-4.9); Lymphocytes Percent Auto 19.3 % (20-40); Mean Corpuscular HGB Conc 33.2 g/dl (31.0-36.0); Mean Corpuscular Hemoglobin 30.3 pg (27.0-33.0); Mean Corpuscular Volume 91.1 fL (80.0-98.0); Mean Platelet Volume 9.5 fL (9.4-12.4); Monocytes Absolute Auto 0.5 X10*3/uL (0.1-1.2); Monocytes Percent Auto 6.9 % (2-11); Neutrophils Absolute Auto 5.5 x10*3/uL (2.0-8.3); Neutrophils Percent Auto 71.4 % (45-73); Platelet Count 227 X10*3/uL (160-400); Red Cell Distribution Width 11.9 % (11.0-16.0); White Blood Count 7.7 X10*3/uL (4.8-10.8)
[2023-06-29 13:32] LABS: Estimated Average Glucose 214 mg/dL; Hemoglobin A1c % 9.1 % (<6.0)
[2023-06-29 14:01] LABS: Anion Gap 12 (12-20); Blood Urea Nitrogen 37 mg/dL (9-16); Calcium 8.9 mg/dL (8.4-10.2); Carbon Dioxide 20 mmol/L (22-29); Chloride 114 mmol/L (96-108); Estimated Glomerular Filt Rate 27; Iron 120 mcg/dL (45-160); Magnesium 2.1 mg/dL (1.6-2.6); Parathyroid Hormone Intact 118.5 pg/mL (8.7-77.1); Percent Iron Saturation 50 % (15-50); Potassium 5.9 mmol/L (3.3-5.1); Sodium 140 mmol/L (135-145); Total Iron Binding Capacity 239 mcg/dL (228-428); Unsaturated Iron Binding 119 ug/dL
[2023-06-29 14:03] LABS: Creatinine Urine 88.88 mg/dL; Creatinine Urine 89.79 mg/dL; Microalbum/Creatinine Ratio Ur 50.6 ug/mg cr (<30); Protein/Creatinine Ratio, Ur 0.17 (<0.2); Total Protein Urine Random 15 mg/dL (<12)
[2023-06-29 14:21] LABS: Ferritin 152 ng/mL (20-250); Vitamin B12 955 pg/mL (200-900)
[2023-06-29 14:53] LABS: Alanine Aminotransferase 34 U/L (0-40); Albumin Level 3.9 g/dL (3.5-5.0); Alkaline Phosphatase 72 U/L (39-117); Anion Gap 12 (12-20); Aspartate Amino Transferase 17 U/L (5-37); Bilirubin Total 0.5 mg/dL (0.0-1.0); Blood Urea Nitrogen 36 mg/dL (9-16); Carbon Dioxide 20 mmol/L (22-29); Chloride 114 mmol/L (96-108); Estimated Glomerular Filt Rate 26; Glucose Random 269 mg/dL (60-115); Sodium 140 mmol/L (135-145); Total Protein 6.8 g/dL (6.5-8.0)
== END 2023-06-29 12:08 | disposition home or self-care (01) ==
LOC: HO.LAB 12:07
PROVIDERS: Absent Provider Internal Medicine; PCP Internal Medicine; Visit Provider Internal Medicine Nephrology
DX: E11.22 Type 2 diabetes mellitus with diabetic chronic kidney disease (principal); N18.2 Chronic kidney disease, stage 2 (mild); I25.10 Atherosclerotic heart disease of native coronary artery without angina pectoris; I12.9 Hypertensive chronic kidney disease with stage 1 through stage 4 chronic kidney disease, or unspecified chronic kidney disease; D50.8 Other iron deficiency anemias; R53.83 Other fatigue
CPT/HCPCS: 36415; 80051; 80053; 82043; 82306; 82310; 82565; 82570; 82607; 82728; 83036; 83540; 83735; 83970; 84156; 84520; 85025

== ENCOUNTER 2023-06-30 12:23 | Outpatient (REF) | payer MEDICARE, OTHER, SELFPAY ==
[2023-06-30 14:10] LABS: Anion Gap 13 (12-20); Blood Urea Nitrogen 36 mg/dL (9-16); Calcium 8.8 mg/dL (8.4-10.2); Carbon Dioxide 21 mmol/L (22-29); Chloride 112 mmol/L (96-108); Estimated Glomerular Filt Rate 26; Glucose Random 270 mg/dL (60-115); Potassium 5.4 mmol/L (3.3-5.1); Sodium 141 mmol/L (135-145)
== END 2023-06-30 12:24 | disposition home or self-care (01) ==
LOC: HO.LAB 12:23
PROVIDERS: PCP Internal Medicine; Visit Provider Internal Medicine
DX: E11.22 Type 2 diabetes mellitus with diabetic chronic kidney disease (principal); N18.9 Chronic kidney disease, unspecified; R79.89 Other specified abnormal findings of blood chemistry
CPT/HCPCS: 36415; 80048

== ENCOUNTER 2023-07-08 12:29 | Outpatient (REF) | payer MEDICARE, OTHER, SELFPAY ==
[2023-07-08 14:33] LABS: Anion Gap 11 (12-20); Blood Urea Nitrogen 34 mg/dL (9-16); Calcium 9.2 mg/dL (8.4-10.2); Carbon Dioxide 23 mmol/L (22-29); Chloride 111 mmol/L (96-108); Estimated Glomerular Filt Rate 28; Glucose Random 243 mg/dL (60-115); Potassium 5.4 mmol/L (3.3-5.1); Sodium 140 mmol/L (135-145)
== END 2023-07-08 12:30 | disposition home or self-care (01) ==
LOC: HO.LAB 12:29
PROVIDERS: PCP Internal Medicine; Visit Provider Internal Medicine
DX: N18.9 Chronic kidney disease, unspecified (principal)
CPT/HCPCS: 36415; 80048

== ENCOUNTER 2023-09-27 12:03 | Outpatient (REF) | payer MEDICARE, OTHER, SELFPAY ==
[2023-09-27 13:34] LABS: Anion Gap 13 (12-20); Blood Urea Nitrogen 45 mg/dL (9-16); Calcium 9.5 mg/dL (8.4-10.2); Carbon Dioxide 21 mmol/L (22-29); Chloride 108 mmol/L (96-108); Estimated Glomerular Filt Rate 25; Glucose Random 314 mg/dL (60-115); Potassium 6.4 mmol/L (3.3-5.1); Sodium 136 mmol/L (135-145)
[2023-09-27 13:47] LABS: Estimated Average Glucose 280 mg/dL; Hemoglobin A1c % 11.4 % (<6.0)
== END 2023-09-27 12:04 | disposition home or self-care (01) ==
LOC: HO.LAB 12:03
PROVIDERS: PCP Internal Medicine; Visit Provider Internal Medicine
DX: Z13.89 Encounter for screening for other disorder (principal)
CPT/HCPCS: 36415; 80048; 83036

== ENCOUNTER 2023-09-27 16:46 | Inpatient (IN) | payer MEDICARE, OTHER, SELFPAY ==
[2023-09-27 16:50] VITALS: BP 139/51; PULSE 63; RESP 18; TEMP 35.9; O2SAT 97; BMI 32.0
--- NOTE | 2023-09-27 16:54 | ED.GENADULT ---
HPI - General Adult General Chief complaint: Recheck/Abnormal Lab/Rx Stated complaint: elev potassium Time Seen by Provider: 09/27/23 19:22 Source: patient Mode of arrival: ambulatory Limitations: no limitations History of Present Illness HPI narrative: This is an 78-year-old man with a past medical history of hypertension, hyperlipidemia, CKD, [id number] diabetes mellitus, paroxysmal atrial fibrillation (on Xarelto), CAD status post stents 20 years ago who presents for evaluation elevated potassium. He states feeling well and has no complaints. Patient reports that he had blood work done earlier and was notified by his primary care doctor that he should go to the emergency room due to elevated potassium. He states that he has had elevated potassium in the past and reports that they check his blood work every 3 months. He states no chest pain, dyspnea, headache, neck pain, fevers, chills, back pain, abdominal pain, nausea/vomiting, lightheadedness or syncope. Related Data Allergies Allergy/AdvReac Type Severity Reaction Status Date / Time No Known Allergies Allergy Verified 09/27/23 16:50 [No Known Allergies*] Review of Systems Review of Systems: ROS as per HPI [facility], [facility] Past Medical History Medical History CKD (chronic kidney disease), stage IV HLD (hyperlipidemia) Hypertension Paroxysmal atrial fibrillation Type 2 diabetes mellitus Social History Social History Alcohol intake: never Advance Directives: No Advance Directives Information Provided: No Do you have a plan to hurt others: No Plan Physical Exam ED Vital Signs: Vital Signs - 24 hr 09/27/23 16:50 09/27/23 19:22 Temperature 96.6 F L 97.4 F Pulse Rate 63 60 Respiratory Rate 18 16 Blood Pressure 139/51 L 140/56 H Pulse Oximetry 97 99 Oxygen Delivery Method Room Air Room Air BMI result Body Mass Index 32.0 Gen: NAD, AOx3 HEENT: NCAT, EOMI, normal conjunctiva CV: RRR Pulm: CTAB, no increased work of breathing GI: Soft, NTND, no rebound, guarding or rigidity Neuro: Grossly non focal Course Course Course Narrative: RME performed by Lana Manzo PA-C. Patient is an 78 year old assigned male at presenting to the emergency department with elevated potassium. Patient states he is a type 2 diabetic and he was getting his labs checked and told he has an elevated potassium of 6.4. Detailed physical exam and review of systems are deferred to the primary special educator. EKG and labs ordered. compensation expert made aware. Medications Administered Discontinued Medications Generic Name Dose Route Start Last Admin Trade Name Linda PRN Reason Stop Dose Admin Calcium Gluconate 1 gm in 50 mls @ 50 mls/hr 09/27/23 19:23 09/27/23 20:20 Calcium Gluconate IV 09/27/23 20:22 50 mls/hr ONCE ONE Administration Insulin Human Regular 5 unit 09/27/23 19:24 09/27/23 20:20 Insulin Regular, Human 100 Unit/Ml 10 Ml Vial IVPUSH 09/27/23 19:25 5 unit ONCE ONE Administration Medical Decision Making Medical Decision Making [facility] Narrative: Differential diagnosis includes, but is not limited to hyperkalemia, acute kidney injury, arrhythmia. Patient is afebrile and hemodynamically stable on room air. Exam is benign and reassuring. I reviewed and interpreted labs, which are notable for hyperkalemia of 6.4-> 6.0. Patient is hyperglycemic to 414 -> 389. Anion gap is within normal limits at 16 and I do not suspect diabetic ketoacidosis. Otherwise labs are reassuring and noncontributory. Patient appears to be at baseline renal function with a creatinine of 2.51 -> 2.63 (creatinine ranging 2.07-2.61). I reviewed and interpreted EKG, which is unremarkable for any acute findings without electrocardiographic changes suggestive of hyperkalemia. Regardless, the patient is provided a temporizing measures with calcium and insulin. Given cardiac history on loop diuretic, patient is provided gentle fluids with 500 cc IV LR. Case and management discussed with admitting hospitalist. Patient is admitted for further workup and management. Admission/Observation Consideration of admission/observation: Escalation of care including admission/observation considered Consult Healthcare Provider Management of the patient was discussed with: Hospitalist Lab Data [facility] Lab Attestation statement: I reviewed the patient's lab results. 09/27/23 18:12 09/27/23 18:12 Labs: Lab Results 09/27/23 09/27/23 Range/Units 18:12 19:28 WBC 8.4 (4.8-10.8) X10*3/uL RBC 4.19 L (4.60-5.80) X10*6/uL Hgb 13.1 L (14.0-18.0) g/dl Hct 38.6 L (42.0-52.0) % MCV 92.1 (80.0-98.0) fL MCH 31.3 (27.0-33.0) pg MCHC 33.9 (31.0-36.0) g/dl RDW 11.5 (11.0-16.0) % Plt Count 220 (160-400) X10*3/uL MPV 9.5 (9.4-12.4) fL Immature Gran % (Auto) 0.5 H (0.0-0.4) % Neut % (Auto) 72.2 (45-73) % Lymph % (Auto) 17.9 L (20-40) % [place] % (Auto) 7.2 (2-11) % Eos % (Auto) 1.8 (0-4) % Baso % (Auto) 0.4 (0-2) % Lymph # (Auto) 1.5 (1.2-4.9) X10*3/uL [place] # (Auto) 0.6 (0.1-1.2) X10*3/uL Eos # (Auto) 0.2 (0.0-0.4) X10*3/uL Baso # (Auto) 0.0 (0.0-0.2) X10*3/uL Abs Immat Gran (auto) 0.04 H (0.00-0.03) X10*3/uL Absolute Neuts (auto) 6.1 (2.0-8.3) x10*3/uL Absolute Nucleated RBC 0.000 (0.0-0.012) X10*3/uL Nucleated RBC % (auto) 0.0 (0.0-0.2) /100WBC Sodium 135 (135-145) mmol/L Potassium 6.0 H* (3.3-5.1) mmol/L Chloride 110 H (96-108) mmol/L Carbon Dioxide 15 L (22-29) mmol/L Anion Gap 16 (12-20) BUN 48 H (9-16) mg/dL Creatinine 2.63 H (0.5-1.4) mg/dL Estim Creat Clear Calc 26.6 Estimated GFR 24 POC Glucose 389 H* (60-115) mg/dL Random Glucose 414 H* (60-115) mg/dL Calcium 9.5 (8.4-10.2) mg/dL Magnesium 2.4 (1.6-2.6) mg/dL Total Bilirubin 0.3 (0.0-1.0) mg/dL AST 14 (5-37) U/L ALT 21 (0-40) U/L Alkaline Phosphatase 68 (39-117) U/L Troponin I High Sens < 2.7 (<3.5-35.0) ng/L Total Protein 7.0 (6.5-8.0) g/dL Albumin 4.0 (3.5-5.0) g/dL Influenza Type A (PCR) NEGATIVE (Negative) Influenza Type B (PCR) NEGATIVE (Negative) RSV RNA Qual (PCR) NEGATIVE (Negative) SARS-CoV-2 RNA (RT-PCR) NEGATIVE (Negative) Independent Interpretation I performed an independent interpretation of an: EKG Interpretation: EKG shows sinus bradycardia 59 beats per minute, DE 170, QRS 78, QTC 401, no peaked T-waves, no STEMI Critical Care Time Critical Care Time Attestation: Critical Care Time: A total of 40 minutes spent in direct patient care with coordinating critical resuscitation, procedures, reviewing records, discussing with consultants, reviewing labs, and/or managing patient. Discharge Plan Discharge Clinical Impression: Hyperkalemia Patient Disposition: Admitted As Inpatient
--- NOTE | 2023-09-27 16:56 | ECG_ITS ---
Test Reason : HYPERKALEMIA Blood Pressure : / mmHG Vent. Rate : 059 BPM Atrial Rate : 059 BPM P-R Int : 170 ms QRS Dur : 078 ms QT Int : 406 ms P-R-T Axes : -26 -23 -06 degrees QTc Int : 401 ms Sinus bradycardia with sinus arrhythmia Minimal voltage criteria for LVH, may be normal variant ( R in aVL ) Inferior infarct , age undetermined Possible Anterior infarct , age undetermined Abnormal ECG When compared with ECG of 09-OCT-2022 13:13, Premature atrial complexes are no longer Present Referred By: Lana Manzo Electronically Signed By:COSMO AGARWAL
[2023-09-27 18:17] LABS: MANUAL DIFF FLAG NO
[2023-09-27 18:19] LABS: Basophils Percent Auto 0.4 % (0-2); Eosinophils Absolute Auto 0.2 X10*3/uL (0.0-0.4); Eosinophils Percent Auto 1.8 % (0-4); Hematocrit 38.6 % (42.0-52.0); Hemoglobin 13.1 g/dl (14.0-18.0); Imm Gran Abs Auto 0.04 X10*3/uL (0.00-0.03); Imm Gran Pct Auto 0.5 % (0.0-0.4); Lymphocytes Absolute Auto 1.5 X10*3/uL (1.2-4.9); Lymphocytes Percent Auto 17.9 % (20-40); Mean Corpuscular HGB Conc 33.9 g/dl (31.0-36.0); Mean Corpuscular Hemoglobin 31.3 pg (27.0-33.0); Mean Corpuscular Volume 92.1 fL (80.0-98.0); Mean Platelet Volume 9.5 fL (9.4-12.4); Monocytes Absolute Auto 0.6 X10*3/uL (0.1-1.2); Monocytes Percent Auto 7.2 % (2-11); Neutrophils Absolute Auto 6.1 x10*3/uL (2.0-8.3); Neutrophils Percent Auto 72.2 % (45-73); Platelet Count 220 X10*3/uL (160-400); Red Blood Count 4.19 X10*6/uL (4.60-5.80); Red Cell Distribution Width 11.5 % (11.0-16.0); White Blood Count 8.4 X10*3/uL (4.8-10.8)
[2023-09-27 18:48] LABS: Troponin-I High Sensitivity < 2.7 ng/L (<3.5-35.0)
[2023-09-27 18:55] LABS: Influenza A PCR NEGATIVE (Negative); Influenza B PCR NEGATIVE (Negative); Resp Syncy Virus RNA Qual PCR NEGATIVE (Negative); SARS COV2 PCR INHOUSE NEGATIVE (Negative)
[2023-09-27 19:05] LABS: Alanine Aminotransferase 21 U/L (0-40); Alkaline Phosphatase 68 U/L (39-117); Anion Gap 16 (12-20); Aspartate Amino Transferase 14 U/L (5-37); Bilirubin Total 0.3 mg/dL (0.0-1.0); Blood Urea Nitrogen 48 mg/dL (9-16); Calcium 9.5 mg/dL (8.4-10.2); Carbon Dioxide 15 mmol/L (22-29); Chloride 110 mmol/L (96-108); Creatinine Clr Calc Pharmacy 26.6; Estimated Glomerular Filt Rate 24; Glucose Random 414 mg/dL (60-115); Magnesium 2.4 mg/dL (1.6-2.6); Sodium 135 mmol/L (135-145)
[2023-09-27 19:22] VITALS: BP 140/56; PULSE 60; RESP 16; TEMP 36.3; O2SAT 99
--- NOTE | 2023-09-27 19:29 | MHC.EDTECH ---
THIS PCT JUST ASSUMED CARE OF PATIENT ,VITALS TAKEN ,BLOOD SUGAR CHECK ,PROVIDER AWARE OF PATIENT HIGH BLOOD SUGAR .
[2023-09-27 19:39] LABS: Glucose, Whole Blood 389 mg/dL (60-115)
--- NOTE | 2023-09-27 20:08 | PM.IMHP ---
History of Present Illness Date of Service: 09/27/23 Attending physician on admission: Zana Diaz Chief Complaint: abn labs 78-year-old male with history of owa-tzxiwqo-lrifgfhcg type 2 diabetes, hypertension, CKD stage 4, paroxysmal atrial fibrillation anticoagulated with Xarelto, and coronary artery disease presented to the ED earlier today after being contacted by PCP office for abnormal labs. Reports his potassium levels are chronically elevated but today were significantly elevated at 6.4 and was advised to come to the ED for further evaluation. He is asymptomatic. Denies fevers, chills, nausea, vomiting, muscle aches, lightheadedness, palpitations, shortness breath, chest pain. Since arrival, vital signs are stable. Hematology studies significant only for a chronic normocytic anemia. Creatinine baseline at 2.63, BUN 48. Potassium 6.0, chloride 110, CO2 15. Glucose on arrival for 14 with recheck 389. Troponin undetectable. Negative for COVID-19, RSV, flu. EKG without any peaked T-waves. In ED, has been given calcium gluconate, 5 units regular insulin, and IV fluids. He will be admitted for further management of acute on chronic hyperkalemia. Review of Systems Review of Systems: Yes all other systems are reviewed and are negative [facility] Medical History CKD (chronic kidney disease), stage IV HLD (hyperlipidemia) Hypertension Paroxysmal atrial fibrillation Type 2 diabetes mellitus Social History Alcohol intake: never Smoked in Last 30 Days: No Use of substances other than those prescribed or required for medical reasons: No Advance Directives: No Advance Directives Information Provided: No Do you have a plan to hurt others: No Plan Meds Allergies Allergy/AdvReac Type Severity Reaction Status Date / Time No Known Allergies Allergy Verified 09/27/23 16:50 [No Known Allergies*] Active Medications: Current Medications Glucose (Glucose Gel 15 Gm Gel..Gram.) 15 gm PO Q15M PRN; Protocol PRN Reason: per Hypoglycemia Standing Ord. Calcium Gluconate (Calcium Gluconate) 1 gm in 50 mls @ 50 mls/hr IV ONCE ONE Stop: 09/27/23 20:22 Lactated Ringer's (Lr) 500 mls @ 999 mls/hr IV .Q31M [facility] Stop: 09/27/23 20:15 Dextrose (D10) 250 mls @ 750 mls/hr IV Q15M PRN; Protocol PRN Reason: per Hypoglycemia Standing Ord. Insulin Human Lispro (Insulin Lispro 100 Unit/Ml 3 Ml Vial) 0 unit SUBCUT QIDACHS AVA; Protocol Physical Exam Vital Signs and Narrative: Vital Signs: Last Vital Signs Temp 97.4 F 09/27/23 19:22 Pulse 60 09/27/23 19:22 Resp 16 09/27/23 19:22 BP 140/56 H 09/27/23 19:22 Pulse Ox 99 09/27/23 19:22 O2 Del Method Room Air 09/27/23 19:22 BMI result Body Mass Index 32.0 Constitutional - Awake and Alert, No apparent distress Eyes - PERRLA, EOMI Cardiovascular - S1S2, RRR, No edema Respiratory - Normal lung expansion, Normal respiratory effort, No respiratory distress, CTA bilaterally Gastrointestinal - NT / ND; +BS; No rebound or guarding Extremities - no calf tenderness bilaterally, no swelling Skin - Warm/Dry Neurological - Alert & oriented x3 Psychological - Appropriate affect Results Labs 09/27/23 18:12 09/27/23 18:12 Labs: Laboratory Results - last 24 hr 09/27/23 09/27/23 18:12 19:28 MCV 92.1 MCH 31.3 MCHC 33.9 RDW 11.5 Plt Count 220 MPV 9.5 Immature Gran % (Auto) 0.5 H Neut % (Auto) 72.2 Lymph % (Auto) 17.9 L [place] % (Auto) 7.2 Eos % (Auto) 1.8 Baso % (Auto) 0.4 Lymph # (Auto) 1.5 [place] # (Auto) 0.6 Eos # (Auto) 0.2 Baso # (Auto) 0.0 Abs Immat Gran (auto) 0.04 H Absolute Neuts (auto) 6.1 Absolute Nucleated RBC 0.000 Nucleated RBC % (auto) 0.0 Anion Gap 16 Estim Creat Clear Calc 26.6 Estimated GFR 24 POC Glucose 389 H* Random Glucose 414 H* Calcium 9.5 Magnesium 2.4 Total Bilirubin 0.3 AST 14 ALT 21 Alkaline Phosphatase 68 Troponin I High Sens < 2.7 Total Protein 7.0 Albumin 4.0 Influenza Type A (PCR) NEGATIVE Influenza Type B (PCR) NEGATIVE RSV RNA Qual (PCR) NEGATIVE SARS-CoV-2 RNA (RT-PCR) NEGATIVE Assessment and Plan (1) Hyperkalemia: Status: Acute Plan 78-year-old male with history of yuu-kxywxyo-mupfvzbit type 2 diabetes, hypertension, CKD stage 4, paroxysmal atrial fibrillation anticoagulated with Xarelto, and coronary artery disease admitted for further management of acute on chronic hyperkalemia # acute on chronic hyperkalemia -likely related to medication use-has been taking lisinopril and spironolactone -K this afternoon 6.4 improved to 6.0 without intervention -EKGs without any peaked T-waves -IV calcium gluconate, 5 units regular insulin, IV fluids administered in the ED. Give Lokelma 10 mg x1 -hold lisinopril and spironolactone -monitor on telemetry -follow electrolytes # uncontrolled uoh-avrqbod-bsgxbtslo type 2 diabetes with hyperglycemia -hemoglobin A1c 11.4% -initiate Lantus 18 units nightly -Humalog on sliding scale -POC glucose, diabetic diet # hypertension -hold lisinopril and spironolactone in setting of above -continue Lasix and metoprolol # paroxysmal atrial fibrillation-rate controlled -continue Xarelto for anticoagulation -continue amiodarone and metoprolol # CKD stage 4 -renal function baseline #Chronic normocytic anemia-likely related to chronic disease -H/H above transfusion threshold DVT prophylaxis-Xarelto Full code Patient requires inpatient stay at least 2 midnights for management of acute hyperkalemia requiring correction of electrolyte levels, close cardiac monitoring and following of electrolyte levels/renal function Quality Stroke Does the patient have a stroke diagnosis?: No VTE Prior VTE?: No VTE Risk Level:: Medical - moderate - high VTE Device Contraindication: Treatment Not Indicated VTE Drug Contraindication: N/A - Med Ordered
[2023-09-27] MEDS: Calcium Gluconate/NaCl,Iso-Osm 1 GM/50 ML PLAST..BAG IV (20:20)
[2023-09-27] MEDS: Insulin Regular, Human 100 UNIT/ML 10 ML VIAL IVPUSH (20:20)
[2023-09-27] MEDS: Sodium Zirconium Cyclosilicate 10 GM POWD.PACK PO (20:31)
[2023-09-27 20:37] VITALS: BP 124/57; PULSE 66; RESP 16; TEMP 36.9; O2SAT 98
--- NOTE | 2023-09-27 20:38 | PC.NURSE ---
Pt ca&ox4, no signs of distress. Pt denies pain. Pt resting in bed comfortably, watching tv. Pt medicated per mar. Plan of care ongoing.
--- NOTE | 2023-09-27 20:50 | MHC.EDTECH ---
Patient was given dinner ate 100 % of meal and drank 360 ml fluids .
[2023-09-27] MEDS: Insulin Glargine,Hum.rec.anlog 100 UNIT/ML 10 ML VIAL 18 UNIT SUBCUT (21:23)
[2023-09-27] MEDS: Insulin Lispro 100 UNIT/ML 3 ML VIAL SUBCUT (21:24)
--- NOTE | 2023-09-27 21:27 | PHA.MEDREC ---
Pharmacy Consult ? Medication Reconciliation Pharmacy has completed the medication reconciliation. Confirmed medications with patient. He confirmed he is taking Xarelto 15mg tabs once daily and he took his last dose today around 11am-12pm.
--- NOTE | 2023-09-27 21:27 | PC.NURSE ---
Dr Diaz notified and aware of pts POC of 389. Pt medicated per may. Plan of care ongoing.
[2023-09-27] MEDS: Lactated Ringers 500 ML 999 ML IV (22:44)
--- NOTE | 2023-09-27 22:44 | PC.NURSE ---
Other meds running not compatible with LR. Plan of care ongoing.
[2023-09-27 23:41] VITALS: BP 132/59; PULSE 52; RESP 20; TEMP 36.6; O2SAT 97
--- NOTE | 2023-09-27 23:51 | MHC.EDTECH ---
0000 ROUNDING DONE ,VITALS TAKEN ,PATIENT WATCHING TELEVISION ,NO APPARENT DISTRESS NOTED ,PATIENT HAD A TUNA FISH SANDFISH AND DIET MALORIE SUMEET FOR SNACK .CALL GREGORY WITHIN PT REACH .
[2023-09-27 23:57] LABS: Glucose, Whole Blood 388 mg/dL (60-115)
[2023-09-28] MEDS: 0.9 % Sodium Chloride Flush 3 ML SYRINGE IVFLUSH (00:32)
--- NOTE | 2023-09-28 00:33 | PC.NURSE ---
Pt requested and light dimmed. Pt medicated per mar. Plan of care ongoing.
[2023-09-28 04:00] VITALS: BP 110/56; PULSE 56; RESP 16; TEMP 36.5; O2SAT 96
[2023-09-28 06:09] LABS: MANUAL DIFF FLAG NO
[2023-09-28 06:21] LABS: Basophils Percent Auto 0.5 % (0-2); Eosinophils Absolute Auto 0.2 X10*3/uL (0.0-0.4); Eosinophils Percent Auto 3.2 % (0-4); Hematocrit 32.6 % (42.0-52.0); Imm Gran Abs Auto 0.04 X10*3/uL (0.00-0.03); Imm Gran Pct Auto 0.6 % (0.0-0.4); Lymphocytes Absolute Auto 1.7 X10*3/uL (1.2-4.9); Lymphocytes Percent Auto 25.3 % (20-40); Mean Corpuscular HGB Conc 33.7 g/dl (31.0-36.0); Mean Corpuscular Hemoglobin 30.8 pg (27.0-33.0); Mean Corpuscular Volume 91.3 fL (80.0-98.0); Mean Platelet Volume 9.5 fL (9.4-12.4); Monocytes Absolute Auto 0.6 X10*3/uL (0.1-1.2); Monocytes Percent Auto 8.6 % (2-11); Neutrophils Absolute Auto 4.1 x10*3/uL (2.0-8.3); Neutrophils Percent Auto 61.8 % (45-73); Platelet Count 195 X10*3/uL (160-400); Red Blood Count 3.57 X10*6/uL (4.60-5.80); Red Cell Distribution Width 11.4 % (11.0-16.0); White Blood Count 6.6 X10*3/uL (4.8-10.8)
[2023-09-28 06:26] VITALS: BP 124/68; PULSE 70; RESP 18; TEMP 36.6; O2SAT 98
[2023-09-28 06:39] LABS: Anion Gap 11 (12-20); Blood Urea Nitrogen 43 mg/dL (9-16); Calcium 9.5 mg/dL (8.4-10.2); Carbon Dioxide 19 mmol/L (22-29); Chloride 112 mmol/L (96-108); Creatinine Clr Calc Pharmacy 32.2; Estimated Glomerular Filt Rate 29; Glucose Random 209 mg/dL (60-115); Potassium 5.1 mmol/L (3.3-5.1); Sodium 137 mmol/L (135-145)
[2023-09-28 07:45] LABS: Glucose, Whole Blood 199 mg/dL (60-115)
[2023-09-28] MEDS: Rivaroxaban 15 MG TABLET PO (07:54)
[2023-09-28] MEDS: Omeprazole 20 MG CAPSULE.DR PO (07:54)
[2023-09-28] MEDS: Insulin Lispro 100 UNIT/ML 3 ML VIAL SUBCUT (07:54)
[2023-09-28] MEDS: glipiZIDE 10 MG TABLET PO (07:54)
[2023-09-28 08:00] VITALS: BP 115/57; PULSE 50; RESP 21; O2SAT 96
[2023-09-28] MEDS: Furosemide 20 MG TABLET PO (09:31)
[2023-09-28] MEDS: Sodium Zirconium Cyclosilicate 5 GM POWD.PACK PO (09:32)
[2023-09-28] MEDS: Amiodarone HCL 200 MG TABLET 100 MG PO (09:32)
[2023-09-28] MEDS: Metoprolol Succinate ER 25 MG TAB.ER.24H PO (09:32)
[2023-09-28] MEDS: SITagliptin Phosphate 100 MG TABLET PO (09:32)
[2023-09-28] MEDS: Multivitamin TABLET 1 TAB PO (09:32)
[2023-09-28] MEDS: Empagliflozin 25 MG TABLET PO (09:32)
--- NOTE | 2023-09-28 10:00 | PC.NURSE ---
this RN resumed care of pt at 0645. a&ox4. vss and up to date. nsr on the layout inspector. pt presents to the ED s/p receiving call from PCP d/t being hyperkalemic at 6.4. at this time, pt presents as asymptomatic. has no complaints. denies pain. medications administered per provider order. insulin administered per sliding scale. pt aware of plan of care in regards to being admitted at this time. pt ambulates to the restroom independently w/ steady gait. no use of assistive devices needed. pt continues to wait for bed assignment. pt able to make his needs known. no sob/wob noted. respirations even/unlabored. plan of care ongoing. call roe placed within reach.
--- NOTE | 2023-09-28 10:24 | PM.DS ---
DS: Providers Provider Date of Service: 09/28/23 Date of admission: 09/27/23 20:03 Primary care physician: Andres Skinner MD DS: Diagnosis Discharge Diagnosis (1) Hyperkalemia: Status: Acute (2) Uncontrolled diabetes mellitus with hyperglycemia: Status: Acute DS: Summary Hospital Course Hospital Course: Admission note HPI 78-year-old male with history of wth-xhncybz-ezvkqnmcq type 2 diabetes, hypertension, CKD stage 4, paroxysmal atrial fibrillation anticoagulated with Xarelto, and coronary artery disease presented to the ED earlier today after being contacted by PCP office for abnormal labs. Reports his potassium levels are chronically elevated but today were significantly elevated at 6.4 and was advised to come to the ED for further evaluation. He is asymptomatic. Denies fevers, chills, nausea, vomiting, muscle aches, lightheadedness, palpitations, shortness breath, chest pain. Since arrival, vital signs are stable. Hematology studies significant only for a chronic normocytic anemia. Creatinine baseline at 2.63, BUN 48. Potassium 6.0, chloride 110, CO2 15. Glucose on arrival for 14 with recheck 389. Troponin undetectable. Negative for COVID-19, RSV, flu. EKG without any peaked T-waves. In ED, has been given calcium gluconate, 5 units regular insulin, and IV fluids. He will be admitted for further management of acute on chronic hyperkalemia. Hospital course # acute on chronic hyperkalemia presented with high K of 6.4 related to home medications of lisinopril and spironolactone which were held as he received IV calcium gluconate, regular insulin, IV fluids and Lokelma 10 mg with good response as both Lisinopril and spironolactone were held with improvement of potassium to 5.1. Will discharge him with holding lisinopril and lowering Spironolactone to 25 mg daily and start Lokelma with a plan to follow up with PCP with repeat BMP next week. # uncontrolled ijd-eczlcso-masgyipoc type 2 diabetes with hyperglycemia Glucose better controlled at this morning as hemoglobin A1c 11.4% reflects poorly controlled DM at home. Will continue her home medications of Glipizide, Januvia and Jardiance. To follow with PCP next week for further adjustments as goal of HbA1c of 8 for his age group. Discharge plan Hold Lisinopril for the time being until you follow with your PCP Decrease Spironolactone to 25 mg daily Start Lokelma 5 mg daily Follow electrolytes test next week record your blood pressure and weight daily and report readings to dr Skinner next week for further adjustments in home medications The patient made quicker than expected recovery and will not need 2 overnight hospital stay. Time Attestation Discharge Coordination Time (in mins): 36 Quality: Safe Use of Opioids Does Pt have an Active Cancer Diagnosis on the Problem List?: No Quality: Stroke Does the patient have a stroke diagnosis?: No Physical Exam Vital Signs: Vital Signs: Last Vital Signs Temp 97.8 F 09/28/23 06:26 Pulse 50 09/28/23 08:00 Resp 21 H 09/28/23 08:00 BP 115/57 L 09/28/23 08:00 Pulse Ox 96 09/28/23 08:00 O2 Del Method Room Air 09/28/23 08:00 BMI result Body Mass Index 32.0 Const: Other: Constitutional : Awake, interactive, not in distress Neck : Normal inspection, Supple Cardiovascular : RRR, no JVP, no lower extremity edema Respiratory : good bilateral air entry, no crackles, wheezes or rhonchi Gastrointestinal: soft, lax, Normal bowel sounds, Non tender Skin : Warm, Dry Neurological : Alert & oriented x3, No focal deficit DS: Data Data Completed and Pending Labs on day of discharge: Laboratory Results - last 24 hr 09/27/23 09/27/23 09/27/23 18:12 19:28 21:04 WBC 8.4 RBC 4.19 L Hgb 13.1 L Hct 38.6 L MCV 92.1 MCH 31.3 MCHC 33.9 RDW 11.5 Plt Count 220 MPV 9.5 Immature Gran % (Auto) 0.5 H Neut % (Auto) 72.2 Lymph % (Auto) 17.9 L [place] % (Auto) 7.2 Eos % (Auto) 1.8 Baso % (Auto) 0.4 Lymph # (Auto) 1.5 [place] # (Auto) 0.6 Eos # (Auto) 0.2 Baso # (Auto) 0.0 Abs Immat Gran (auto) 0.04 H Absolute Neuts (auto) 6.1 Absolute Nucleated RBC 0.000 Nucleated RBC % (auto) 0.0 Sodium 135 Potassium 6.0 H* Chloride 110 H Carbon Dioxide 15 L Anion Gap 16 BUN 48 H Creatinine 2.63 H Estim Creat Clear Calc 26.6 Estimated GFR 24 POC Glucose 389 H* 388 H* Random Glucose 414 H* Calcium 9.5 Magnesium 2.4 Total Bilirubin 0.3 AST 14 ALT 21 Alkaline Phosphatase 68 Troponin I High Sens < 2.7 Total Protein 7.0 Albumin 4.0 Influenza Type A (PCR) NEGATIVE Influenza Type B (PCR) NEGATIVE RSV RNA Qual (PCR) NEGATIVE SARS-CoV-2 RNA (RT-PCR) NEGATIVE 09/28/23 09/28/23 05:53 07:42 WBC 6.6 RBC 3.57 L Hgb 11.0 L Hct 32.6 L MCV 91.3 MCH 30.8 MCHC 33.7 RDW 11.4 Plt Count 195 MPV 9.5 Immature Gran % (Auto) 0.6 H Neut % (Auto) 61.8 Lymph % (Auto) 25.3 [place] % (Auto) 8.6 Eos % (Auto) 3.2 Baso % (Auto) 0.5 Lymph # (Auto) 1.7 [place] # (Auto) 0.6 Eos # (Auto) 0.2 Baso # (Auto) 0.0 Abs Immat Gran (auto) 0.04 H Absolute Neuts (auto) 4.1 Absolute Nucleated RBC 0.000 Nucleated RBC % (auto) 0.0 Sodium 137 Potassium 5.1 Chloride 112 H Carbon Dioxide 19 L Anion Gap 11 L BUN 43 H Creatinine 2.18 H Estim Creat Clear Calc 32.2 Estimated GFR 29 POC Glucose 199 H Random Glucose 209 H Calcium 9.5 Magnesium Total Bilirubin AST ALT Alkaline Phosphatase Troponin I High Sens Total Protein Albumin Influenza Type A (PCR) Influenza Type B (PCR) RSV RNA Qual (PCR) SARS-CoV-2 RNA (RT-PCR) Discharge Plan Discharge Anticipated Discharge Date/Time: 09/28/23 10:19 Patient Disposition: Home, Self-Care Discharge Diagnosis: Hyperkalemia Referrals: Andres Skinner MD [Primary Care Provider] - 1 Week Discharge Medications: New Lokelma 5 gram Powder In Packet 5 g PO DAILY Qty: 30 0RF Continued multivitamin Tablet 1 tab PO DAILY amiodarone 200 mg tablet 100 mg PO DAILY metoprolol succinate 50 mg tablet extended release 24 hr 25 mg PO DAILY omeprazole 20 mg capsule,delayed release(DR/EC) 20 mg PO DAILY@0630 furosemide 20 mg tablet 20 mg PO DAILY glipizide 5 mg tablet 10 mg PO BID rosuvastatin 40 mg tablet 40 mg PO BEDTIME Januvia 100 mg tablet 100 mg PO DAILY Xarelto 15 mg tablet 15 mg PO DAILY@0800 Jardiance 25 mg tablet 25 mg PO DAILY Changed spironolactone 50 mg tablet 25 mg PO DAILY Qty: 30 0RF Held lisinopril 10 mg tablet 10 mg PO DAILY Hold Instructions: Until you see your PCP Discharge Orders: Discharge Order (Routine); Ordered 09/28/23 Ordered By: Gillian Wright Diet: Low salt diet Activity on Discharge: As tolerated Stand Alone Forms: Patient Portal Discharge page Print Language: Greek Other Ambulatory Orders: Basic Metabolic Panel (Routine) Timeframe: 5 Days Facility: [facility] - Location: Laboratory Ordered By: Gillian Wright Care Plan Goals: Hold Lisinopril for the time being until you follow with your PCP Decrease Spironolactone to 25 mg daily Start Lokelma 5 mg daily Follow electrolytes test next week record your blood pressure and weight daily and report readings to dr Skinner next week for further adjustments in home medications Health Concerns: Read below Plan of Treatment: Read below Assessment: Read below
--- NOTE | 2023-09-28 10:33 | MHC.CM.PN ---
CM met with Patient at bedside in the ED and addressed IMM with him, providing Patient with the original and a copy will be placed on the chart. 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 Patient has been medically cleared for dc to home today, self care. Patient's Daughter will transport to home. PCP is Dr. Andres Skinner.
[2023-09-28 10:50] VITALS: BP 115/57; PULSE 50; RESP 21; TEMP 36.6; O2SAT 96
== END 2023-09-28 10:49 | disposition home or self-care (01) | DRG 641 ==
LOC: HO.ED 19:22 → HO.EDOVER 20:19
PROVIDERS: Physician Assistant Medical; Student in an Organized Health Care Education/Training Program; Admitting Provider Physician Assistant; Emergency Provider Emergency Medicine; PCP Internal Medicine; Visit Provider Student in an Organized Health Care Education/Training Program
DX: E87.5 Hyperkalemia (principal); N18.4 Chronic kidney disease, stage 4 (severe); I12.9 Hypertensive chronic kidney disease with stage 1 through stage 4 chronic kidney disease, or unspecified chronic kidney disease; E11.22 Type 2 diabetes mellitus with diabetic chronic kidney disease; I48.0 Paroxysmal atrial fibrillation; I25.10 Atherosclerotic heart disease of native coronary artery without angina pectoris; E11.65 Type 2 diabetes mellitus with hyperglycemia; D63.1 Anemia in chronic kidney disease; Z95.5 Presence of coronary angioplasty implant and graft; Z20.822 Contact with and (suspected) exposure to COVID-19; Z79.01 Long term (current) use of anticoagulants; Z79.84 Long term (current) use of oral hypoglycemic drugs; Z79.899 Other long term (current) drug therapy
CPT/HCPCS: 0241U; 36415; 80048; 80053; 82947; 83036; 83735; 84484; 85025; 93005; 96361; 96365; 99285; J0613; J7120

== ENCOUNTER → 2023-09-27 16:56 | Outpatient (BNV) | payer MEDICARE, OTHER, SELFPAY | PROVIDERS: Admitting Provider Physician Assistant; Emergency Provider Emergency Medicine; PCP Internal Medicine; Visit Provider Internal Medicine | DX: E87.5 Hyperkalemia (principal) | CPT/HCPCS: 93010 ==

== ENCOUNTER → 2023-09-27 20:03 | Outpatient (BNV) | payer MEDICARE, OTHER, SELFPAY | PROVIDERS: Admitting Provider Physician Assistant; Emergency Provider Emergency Medicine; PCP Internal Medicine; Visit Provider Physician Assistant | DX: E87.5 Hyperkalemia (principal); E11.65 Type 2 diabetes mellitus with hyperglycemia | CPT/HCPCS: 99223; 99239 ==

== ENCOUNTER 2023-10-04 16:01 | Outpatient (REF) | payer MEDICARE, OTHER, SELFPAY ==
[2023-10-04 18:28] LABS: Anion Gap 15 (12-20); Blood Urea Nitrogen 48 mg/dL (9-16); Calcium 9.7 mg/dL (8.4-10.2); Carbon Dioxide 22 mmol/L (22-29); Chloride 104 mmol/L (96-108); Estimated Glomerular Filt Rate 23; Sodium 136 mmol/L (135-145)
[2023-10-04 18:30] LABS: Glucose Random 350 mg/dL (60-115)
== END 2023-10-04 16:02 | disposition home or self-care (01) ==
LOC: HO.LAB 16:01
PROVIDERS: Student in an Organized Health Care Education/Training Program; PCP Internal Medicine; Visit Provider Internal Medicine
DX: E87.5 Hyperkalemia (principal); E11.22 Type 2 diabetes mellitus with diabetic chronic kidney disease; N18.9 Chronic kidney disease, unspecified
CPT/HCPCS: 36415; 80048

== ENCOUNTER 2023-10-06 16:22 | Outpatient (REF) | payer MEDICARE, OTHER, SELFPAY ==
[2023-10-06 17:30] LABS: Estimated Average Glucose 280 mg/dL; Hemoglobin A1c % 11.4 % (<6.0)
[2023-10-06 18:00] LABS: Anion Gap 16 (12-20); Blood Urea Nitrogen 49 mg/dL (9-16); Calcium 9.2 mg/dL (8.4-10.2); Carbon Dioxide 21 mmol/L (22-29); Chloride 103 mmol/L (96-108); Estimated Glomerular Filt Rate 23; Glucose Random 389 mg/dL (60-115); Potassium 5.2 mmol/L (3.3-5.1); Sodium 135 mmol/L (135-145)
== END 2023-10-06 16:23 | disposition home or self-care (01) ==
LOC: HO.LAB 16:22
PROVIDERS: PCP Internal Medicine; Visit Provider Internal Medicine
DX: I10 Essential (primary) hypertension (principal); I48.91 Unspecified atrial fibrillation; Z13.1 Encounter for screening for diabetes mellitus
CPT/HCPCS: 36415; 80048; 83036

== ENCOUNTER 2023-12-29 15:33 | Outpatient (REF) | payer MEDICARE, OTHER, SELFPAY ==
[2023-12-29 16:05] LABS: Estimated Average Glucose 252 mg/dL; Hemoglobin A1C 300.1347 umol/L; Hemoglobin A1c % 10.4 % (<6.0)
[2023-12-29 16:26] LABS: Anion Gap 14 (12-20); Blood Urea Nitrogen 38 mg/dL (9-16); Calcium 9.6 mg/dL (8.4-10.2); Carbon Dioxide 23 mmol/L (22-29); Chloride 107 mmol/L (96-108); Estimated Glomerular Filt Rate 25; Glucose Random 296 mg/dL (60-115); Potassium 5.3 mmol/L (3.3-5.1); Sodium 139 mmol/L (135-145)
== END 2023-12-29 15:34 | disposition home or self-care (01) ==
LOC: HO.LAB 15:33
PROVIDERS: PCP Internal Medicine; Visit Provider Internal Medicine
DX: E11.9 Type 2 diabetes mellitus without complications (principal)
CPT/HCPCS: 36415; 80048; 83036

== ENCOUNTER 2024-03-20 08:50 | Outpatient (REF) | payer MEDICARE, OTHER, SELFPAY ==
[2024-03-20 09:19] LABS: MANUAL DIFF FLAG NO
[2024-03-20 10:30] LABS: Basophils Percent Auto 0.5 % (0-2); Eosinophils Absolute Auto 0.1 X10*3/uL (0.0-0.4); Eosinophils Percent Auto 1.6 % (0-4); Hematocrit 35.9 % (42.0-52.0); Hemoglobin 11.9 g/dl (14.0-18.0); Imm Gran Abs Auto 0.04 X10*3/uL (0.00-0.03); Imm Gran Pct Auto 0.5 % (0.0-0.4); Lymphocytes Absolute Auto 1.4 X10*3/uL (1.2-4.9); Lymphocytes Percent Auto 17.7 % (20-40); Mean Corpuscular HGB Conc 33.1 g/dl (31.0-36.0); Mean Corpuscular Hemoglobin 30.7 pg (27.0-33.0); Mean Corpuscular Volume 92.8 fL (80.0-98.0); Mean Platelet Volume 9.7 fL (9.4-12.4); Monocytes Absolute Auto 0.6 X10*3/uL (0.1-1.2); Monocytes Percent Auto 7.8 % (2-11); Neutrophils Absolute Auto 5.5 x10*3/uL (2.0-8.3); Neutrophils Percent Auto 71.9 % (45-73); Platelet Count 236 X10*3/uL (160-400); Red Blood Count 3.87 X10*6/uL (4.60-5.80); Red Cell Distribution Width 11.9 % (11.0-16.0); White Blood Count 7.7 X10*3/uL (4.8-10.8)
[2024-03-20 10:45] LABS: Anion Gap 14 (12-20); Blood Urea Nitrogen 49 mg/dL (9-16); Calcium 8.7 mg/dL (8.4-10.2); Carbon Dioxide 20 mmol/L (22-29); Chloride 111 mmol/L (96-108); Estimated Glomerular Filt Rate 25; Glucose Random 219 mg/dL (60-115); Potassium 4.4 mmol/L (3.3-5.1); Sodium 141 mmol/L (135-145)
[2024-03-20 10:47] LABS: Estimated Average Glucose 214 mg/dL; Hemoglobin A1c % 9.1 % (<6.0); Total Hemoglobin (HGBA1C) 3039.6518 umol/L
[2024-03-20 10:50] LABS: Anion Gap 14 (12-20); Blood Urea Nitrogen 50 mg/dL (9-16); Calcium 9.1 mg/dL (8.4-10.2); Carbon Dioxide 20 mmol/L (22-29); Chloride 110 mmol/L (96-108); Estimated Glomerular Filt Rate 25; Magnesium 2.1 mg/dL (1.6-2.6); Potassium 4.4 mmol/L (3.3-5.1); Sodium 140 mmol/L (135-145)
[2024-03-20 11:54] LABS: Creatinine Urine 122.99 mg/dL; Protein/Creatinine Ratio, Ur 0.17 (<0.2); Total Protein Urine Random 21 mg/dL (<12)
[2024-03-20 12:17] LABS: Parathyroid Hormone Intact 82.6 pg/mL (8.7-77.1)
== END 2024-03-20 08:51 | disposition home or self-care (01) ==
LOC: HO.LAB 08:50
PROVIDERS: Absent Provider Internal Medicine Nephrology; PCP Internal Medicine; Visit Provider Internal Medicine
DX: N18.4 Chronic kidney disease, stage 4 (severe) (principal); I10 Essential (primary) hypertension; D50.8 Other iron deficiency anemias; Z13.1 Encounter for screening for diabetes mellitus
CPT/HCPCS: 36415; 80048; 80051; 82310; 82565; 82570; 83036; 83735; 83970; 84156; 84520; 85025

== ENCOUNTER 2024-06-07 08:21 | Outpatient (REF) | payer MEDICARE, OTHER, SELFPAY ==
[2024-06-07 08:48] LABS: MANUAL DIFF FLAG NO
--- OUTSIDE RECORDS SUMMARY | 2024-06-07 08:50 | XMS_ITS | Clinical Summary ---
Author Organization [facility] Address [address] [address] Phone Care Team Providers Care Driver License Technician Name Role Phone Andres Skinner MD Primary Care Provider [phone] Allergies No known active allergies Medications Multiple Vitamin (MULTI-VITAMIN DAILY PO) Active amiodarone (PACERONE) 100 MG tablet Take 100 mg by mouth daily 09/21/2018 Active cholecalciferol (VITAMIN D-3) 125 MCG (5000 UT) capsule Take 5,000 Units by mouth daily Active furosemide (LASIX) 20 MG tablet Take 20 mg by mouth Active glipiZIDE (GLUCOTROL) 5 MG tablet Take 5 mg by mouth 2 (two) times a day before meals Active loratadine (CLARITIN) 10 MG tablet Take 10 mg by mouth daily Active metoprolol succinate XL (TOPROL XL) 50 MG 24 hr tablet Take 50 mg by mouth in the morning. Half a pill. . 08/12/2020 Active omeprazole OTC (PriLOSEC OTC) 20 MG EC tablet Take 20 mg by mouth Active Rivaroxaban 15 & 20 MG tablet therapy pack Take 15 mg by mouth Active Empagliflozin (Jardiance) 25 MG tablet Take 25 mg by mouth 1 (one) time each day in the morning Active spironolactone (ALDACTONE) 50 MG tabletIndicatio ns:Hypertension TAKE 1 TABLET BY MOUTH 1 TIME EACH DAY. 90 tablet 3 07/20/2023 Active fexofenadine (LORETTA) 60 MG tablet Take 60 mg by mouth 1 (one) time each day Active Trulicity 0.75 MG/0.5ML solution auto-injector 1 pen. 01/05/2024 Activ e Active Problems Problem Noted Date Diagnosed Date Chronic kidney disease, stage 4 (severe) 024 Anemia in chronic kidney disease 11/22/2023 Vitamin D deficiency, not otherwise specified Hyperlipidemia 07/10/2021 Diabetes mellitus 07/10/2021 Chronic kidney disease, stage 2 (mild) Type 2 diabetes mellitus wit h diabetic chronic kidney disease 11/26/2020 Paroxysmal atrial fibrillation 09/20/2018 Overview (11/25/2020): 12/2018 ECHO EF 55-60%; DD1; 1+MR; PAS 37 Last Assessment & Plan: No clinical episodes. Remains anticoagulated and on rate control medications. Hypertension 02/24/2017 Overview (11/25/2020): Last Assessment & Plan: Borderline control on present therapy. No changes. Pure hypercholesterolemia 02/24/2017 Overview (11/25/2020): Last Assessment & Plan: Statin unchanged. No recent profile. Resolved Problems Problem Noted Date Diagnosed Date Resolved Date Venous insufficiency 05/07/2021 022 Overview (07/10/2021): Last Assessment & Plan: He continues to report bilateral lower extremity heaviness and edema. He has tried compression stockings in the past. bilateral lower extremity venous Doppler shows right CFV is incompetent; 6.0S reflux. Right GSV is incompetent with greatest reflux at mid calf at 8.3S reflux. Left GSV is competent. Left popliteal vein is incompetent; 5.2S reflux. Left SSV is incompetent with greatest reflux at proximal calf with 12 point 2S reflux. We discussed today that his left leg really bothers him more so we will start with the left leg for an ablation. We will have a 1 week follow-up ultrasound post procedure with a 2 to 4-week in person office visit post procedure. If he tolerates this well he will moved to the right leg. Prescription for EMLA cream was sent to the pharmacy and a prescription for thigh-high stockings were given to him at today's office visit. Acute congestive heart failure 09/20/2018 01/21/2022 Overview (11/25/2020): Last Assessment & Plan: No symptoms and euvolemic with improved systolic function. Coronary atherosclerosis 02/24/2017 Overview (11/25/2020): 11/2003 PCI VAMSHI LAD EF 50% 12/2018 NUKE- EF 40% Last Assessment & Plan: Doing well. Encouraged to be as active as he can be. Encounters Date Type Department Care Team Description 03/31/2024 Office Communication [facility] [address] [address] Damaris Coon 03/27/2024 1:30 PM EST Office Visit [facility] [address] [address] Savanah Estrada ARNP Chronic kidney disease, stage 4 (severe) (HCC) (Primary Dx); Hypertension; Anemia in chronic kidney disease; Vitamin D deficiency, not otherwise specified from Last 3 Months Immunizations Name Administration Dates Next Due Pfizer SARS-COV-2 07/01/2020,06/10/2020 TD Preservative Free 09/23/2016 Family History Medical History Relation Comments Heart disease Father Diabetes Mother Relation Status Comments Father Mother Social History Tobacco Use Types Packs/Day Years Used Date Smoking Tobacco: Former Cigarettes Smokeless Tobacco: Never Tobacco Cessation:Counseling Given: Not Answered Alcohol Use Standard Drinks/Week Comments Yes 0 (1 standard drink = 0.6 oz pur e alcohol) social Sex and Gender Information Value Date Recorded Sex Assigned at Not on file Legal Sex Male 10:36 AM EDT Gender Identity Not on file Sexual Orientation Not on file Last Filed Vital Signs Vital Sign Reading Time Taken Comments Blood Pressure 118/68 03/27/2024 1:45 PM EST Pulse 63 03/27/2024 1:45 PM EST Temperature - - Respiratory Rate - - Oxygen Saturation 97% 03/27/2024 1:45 PM EST Inhaled Oxygen Concentration - - Weight 102 kg (224 lb 9.6 oz) 03/27/2024 1:45 PM EST Height 180.3 cm (5' 11 ) 07/10/2021 1:59 PM EDT Body Mass Index 31.33 07/10/2021 1:59 PM EDT Plan of Treatment Upcoming Encounters Date Type Department Care Team (Late st Contact Info) Description 07/24/2024 2:00 PM EDT Office [facility] [address] [address] Savanah Estrada ARNP [address] [address] Health Maintenance Due Date Last Done Comments Pneumococcal Vaccine: 65+ Years (1 of 2 - PCV) 1951 Diabetes: Ophthalmology Exam 11/26/2020 Diabetes: Pedal Pulse Checked 11/26/2020 Diabetes: Sensory Foot Exam 11/26/2020 Diabetes: Visual Foot Exam 11/26/2020 Influenza Vaccine (#1) 2023 Diabetes: Hemoglobin A1C 02/15/20242 024, 06/29/2023, 04/22/2022, Additional history exists Hepatitis B Vaccine Aged Out No longe r eligible based on patient's age to complete this topic Procedures Procedure Name Priority Date/Time Associated Diagnosis Comments EXT RESULT ENTRY Routine 03/20/2024 HEMOGLOBIN A1C Routine 11/15/2023 11:40 AM EDT Chronic kidney disease, stage 4 (severe) (HCC) from Last 3 Months or Most Recently Relevant to Health Maintenance Results * (ABNORMAL) EXT RESULT ENTRY (03/20/2024) Hemoglobin 11.9(A) 13.5 - 17.5 Hematocrit 35.9(A) 41.0 - 53.0 Platelets 236 150 - 399 10*3/UL Sodium 141 137 - 147 Potassium 4.4 3.4 - 5.5 Carbon Dioxide 20 mmol/L BUN 49(A) 4 - 21 mg/dL Creatinine 2.51(A) 0.60 - 1.30 mg/dL Calcium 8.7 8.7 - 10.7 mg/dL eGFR Non-Afr Citizen Of [place] 2.51 Protein Urine Random 21 Creatinine, Urine Random 122.99 mg/dL Urine Protein/Creatin ine Ratio 0.17 mg/g creat 03/20/2024 Historical Provider LAB BLOOD ORDERABLES Jane l Result * (ABNORMAL) Hemoglobin A1c (11/15/2023 11:40 AM EDT) Pathologist [facility] Hemoglobin A1C 11.8(H) 4.8 - 5.6 % [facility]ella Comment: ? Prediabetes: 5.7 - 6.4 ? Diabetes: >6.4 ? Glycemic control for adults with diabetes: <7.0 Blood (Blood, Venous) 11/15/2023 11:40 AM EDT 11/15/2023 Anya Naik MD LAB BLOOD ORDERABLES Final Result [facility] [address] [place] [address] from Last 3 Months or Most Recently Relevant to Health Maintenance Insurance [employer]ICARE [facility] [employer] [facility] Care Teams Driver License Technician Relationship Specialty Start Date End Date Andres Skinner MD [id number] [place] PCP - General Internal Medicine 10/04/20
--- OUTSIDE RECORDS SUMMARY | 2024-06-07 08:50 | XMS_ITS | Encounter Summary ---
Author Organization [facility] Address [facility] 200 [place] [address] Phone Care Team Providers Care Home Health Travel Pt Name Role Phone Andres Skinner MD Primary Care Provider [phone] Reason for Visit * Reason Comments Med Refill Encounter Details Date Type Department Care Team (Late st Contact Info) Description 07/05/2023 Refill [facility] 100 [facility] 200 [place] [phone] Marlo Pizano MD [address] [place] [address], [address] [address] Hypertension (Primary Dx) Social History Tobacco Use Types Packs/Day Years Used Date Smoking Tobacco: Former Cigarettes Smokeless Tobacco: Never Alcohol Use Standard Drinks/Week Comments Yes 0 (1 standard drink = 0.6 oz pur e alcohol) social Sex and Gender Information Value Date Recorded Sex Assigned at Not on file Legal Sex Male 10:36 AM EDT Gender Identity Not on file Sexual Orientation Not on file documented as of this encounter Plan of Treatment Upcoming Encounters Date Type Department Care Team (Late st Contact Info) Description 07/24/2024 2:00 PM EDT Office Visit [facility] [address] [address] Savanah Estrada ARNP [address] [address] documented as of this encounter Visit Diagnoses Diagnosis Hypertension- Primary documented in this encounter Care Teams Home Health Travel Pt Relationship Specialty Start Date End Date Andres Skinner MD [address] [place] PCP - General Internal Medicine 10/04/20 documented as of this encounter
--- OUTSIDE RECORDS SUMMARY | 2024-06-07 08:50 | XMS_ITS | Clinical Summary ---
Author Organization [employer] Address 75 [facility] 7t [place] [address] Care Team Providers Care Local Government Legislator Name Role Phone Unavailable Primary Care Provider Unavailabl e Immunizations Name Administration Dates Next Due Pfizer Covid-19 Vaccine 12+ 01/06/2024 Social History Tobacco Use Types Packs/Day Years Used Date Smoking Tobacco: Never Assessed Sex and Gender Information Value Date Recorded Sex Assigned at Male 01/06/2024 2:48 PM EDT Legal Sex Male 1:36 PM EDT Gender Identity Male 01/06/2024 2:48 PM EDT Sexual Orientation Don't know 01/06/2024 2: 48 PM EDT Plan of Treatment Health Maintenance Due Date Last Done Comments Depression Screening 1945 Lipid Panel 1943 SDOH Screening 1943 Alcohol/Substance Use Screening 1955 Tobacco Screening 1955 Pneumococcal Vaccine: 50+ Years (1 of 1 - PCV) 1993 Zoster Vaccines (1 of 2) 1993 DTaP/Tdap/Td Vaccines (1 - Tdap) 09/24/2016 09/23/2016 RSV Patients and Patients Aged 60 years or older (1 - 1-dose 75+ series) 2018 Influenza Vaccine (#1) 2023 COVID-19 Vaccine Completed 01/06/2024, 02/2024, 04/20/2022, Additional history exists HIB Vaccines Aged Out No longer eligi ble based on patient's age to complete this topic HPV Vaccines Aged Out No longer eligi ble based on patient's age to complete this topic Hepatitis A Vaccines Aged Out No long er eligible based on patient's age to complete this topic Hepatitis B Vaccines Aged Out No long er eligible based on patient's age to complete this topic IPV Vaccines Aged Out No longer eligi ble based on patient's age to complete this topic Meningococcal Vaccine Aged Out No xavier nancie eligible based on patient's age to complete this topic RSV under 20 months Aged Out No longe r eligible based on patient's age to complete this topic Rotavirus Vaccines Aged Out No longer eligible based on patient's age to complete this topic Insurance [facility] MEDICARE
--- OUTSIDE RECORDS SUMMARY | 2024-06-07 08:50 | XMS_ITS | Encounter Summary ---
Author Organization [facility] Address 100 [facility] 200 [place] [address] Phone Care Team Providers Care Mac Operator Name Role Phone Andres Skinner MD Primary Care Provider [phone] Encounter Details Date Type Department Care Team (Late st Contact Info) Description 11/18/2023 Office Communication [facility] 200 [place] [phone] Savanah Estrada ARNP [address] [address] Social History Tobacco Use Types Packs/Day Years [...] Visit [facility] P[facility] 0474 [facility] 204 [place] [address] Savanah Estrada ARNP [address] [address] documented as of this encounter Visit Diagnoses Not on filedocumented in this encounter Care Teams Mac Operator Relationship Specialty Start Date End Date Andres Skinner MD [address] [place] PCP - General Internal Medicine 10/04/20 documented as of this encounter
[2024-06-07 09:12] LABS: Basophils Absolute Auto 0.1 X10*3/uL (0.0-0.2); Basophils Percent Auto 0.6 % (0-2); Eosinophils Absolute Auto 0.2 X10*3/uL (0.0-0.4); Eosinophils Percent Auto 2.1 % (0-4); Hematocrit 41.6 % (42.0-52.0); Hemoglobin 14.1 g/dl (14.0-18.0); Imm Gran Abs Auto 0.04 X10*3/uL (0.00-0.03); Imm Gran Pct Auto 0.5 % (0.0-0.4); Lymphocytes Absolute Auto 1.3 X10*3/uL (1.2-4.9); Lymphocytes Percent Auto 16.7 % (20-40); Mean Corpuscular HGB Conc 33.9 g/dl (31.0-36.0); Mean Corpuscular Hemoglobin 31.5 pg (27.0-33.0); Mean Corpuscular Volume 93.1 fL (80.0-98.0); Mean Platelet Volume 9.1 fL (9.4-12.4); Monocytes Absolute Auto 0.6 X10*3/uL (0.1-1.2); Monocytes Percent Auto 7.4 % (2-11); Neutrophils Absolute Auto 5.6 x10*3/uL (2.0-8.3); Neutrophils Percent Auto 72.7 % (45-73); Platelet Count 230 X10*3/uL (160-400); Red Blood Count 4.47 X10*6/uL (4.60-5.80); Red Cell Distribution Width 11.9 % (11.0-16.0); White Blood Count 7.7 X10*3/uL (4.8-10.8)
[2024-06-07 09:31] LABS: Estimated Average Glucose 163 mg/dL; Hemoglobin A1c % 7.3 % (<6.0)
[2024-06-07 09:34] LABS: Appearance Urine Clear; Color Urine Yellow; Glucose Urine UA >=1000 mg/dL (Negative); Leukocyte Esterase Urine Negative (Negative); Nitrite Urine Negative (Negative); PH 5.5 (5.0-9.0); UMIC TRIGGER UA YES; Urine Blood Negative (Negative); Urine Ketones Negative (Negative); Urine Protein Trace mg/dL (Neg-Trace)
[2024-06-07 09:40] LABS: Bacteria Urine None Seen (None Seen); Hyaline Casts Urine 0-2 /LPF (0-2); RBC Urine 0-2 /HPF (0-2); Squamous Epithelial Cell Urine 0-2 /HPF (0-2); WBC Urine 0-5 /HPF (0-5)
[2024-06-07 09:51] LABS: Creatinine Urine 63.36 mg/dL; Protein/Creatinine Ratio, Ur 0.24 (<0.2); Total Protein Urine Random 15 mg/dL (<12)
[2024-06-07 09:52] LABS: Creatinine Urine 64.65 mg/dL; Microalbum/Creatinine Ratio Ur 97.4 ug/mg cr (<30)
[2024-06-07 09:53] LABS: Alanine Aminotransferase 48 U/L (0-40); Alkaline Phosphatase 69 U/L (39-117); Anion Gap 13 (12-20); Aspartate Amino Transferase 22 U/L (5-37); Bilirubin Total 0.5 mg/dL (0.0-1.0); Blood Urea Nitrogen 44 mg/dL (9-16); Calcium 9.5 mg/dL (8.4-10.2); Carbon Dioxide 24 mmol/L (22-29); Chloride 108 mmol/L (96-108); Cholesterol 148 mg/dL (<200); Estimated Glomerular Filt Rate 27; Glucose Fasting 184 mg/dL (60-99); HDL Cholesterol 40 mg/dL (>40); LDL Cholesterol Calculated 65 mg/dL (<100); Potassium 4.3 mmol/L (3.3-5.1); Sodium 141 mmol/L (135-145); Total Protein 7.3 g/dL (6.5-8.0); Triglycerides 215 mg/dL (<150)
[2024-06-07 10:04] LABS: Anion Gap 14 (12-20); Blood Urea Nitrogen 41 mg/dL (9-16); Calcium 9.4 mg/dL (8.4-10.2); Carbon Dioxide 22 mmol/L (22-29); Chloride 109 mmol/L (96-108); Estimated Glomerular Filt Rate 26; Iron 77 mcg/dL (45-160); Magnesium 2.4 mg/dL (1.6-2.6); Percent Iron Saturation 30 % (15-50); Potassium 4.5 mmol/L (3.3-5.1); Sodium 140 mmol/L (135-145); Total Iron Binding Capacity 260 mcg/dL (228-428); Unsaturated Iron Binding 183 ug/dL
[2024-06-07 10:14] LABS: Prostate Specific Antigen 4.47 ng/mL (<0.05-4.0)
[2024-06-07 10:23] LABS: Ferritin 112 ng/mL (20-250)
[2024-06-07 10:40] LABS: Parathyroid Hormone Intact 79.7 pg/mL (8.7-77.1)
== END 2024-06-07 08:22 | disposition home or self-care (01) ==
LOC: HO.LAB 08:21
PROVIDERS: Absent Provider Internal Medicine; PCP Internal Medicine; Visit Provider Internal Medicine Nephrology
DX: N18.4 Chronic kidney disease, stage 4 (severe) (principal); I10 Essential (primary) hypertension; D63.1 Anemia in chronic kidney disease; Z12.5 Encounter for screening for malignant neoplasm of prostate; Z13.1 Encounter for screening for diabetes mellitus
CPT/HCPCS: 36415; 80051; 80053; 80061; 81001; 81003; 82043; 82310; 82565; 82570; 82728; 83036; 83540; 83735; 83970; 84153; 84156; 84520; 85025

== ENCOUNTER 2024-06-09 10:57 | Outpatient (AMB) | payer MEDICARE, OTHER, SELFPAY ==
--- NOTE | 2024-06-09 10:59 | MHC.PC.OV ---
Vital Signs 06/09/24 11:08 Height 5 ft 10 in Weight 210 lb BMI 30.1 BP 128/70 Respiration 16 Pulse 80 Pulse Source Pulse Oximeter Temp 97.5 F Temp Source Temporal Artery Scan Pulse Oximetry (%) 99 Oxygen Delivery Method Room Air Intake Visit Reasons: Routine Instructional Technology Coach Required: No Accompanied by: Self / Same As Patient Allergies No Known Allergies [No Known Allergies*] Allergy (Verified 06/09/24 11:06) Tobacco use date assessed: 06/09/24 Fall risk assessment: No Falls in past year Last assessed Fall Risk: 06/09/24 Dental Screening Dental Screen Date: 06/09/24 Did you have a dental visit in the last 12 months?: Yes Did you have a dental problem in the last 6 months where you did not have access to dental care?: No HPI HPI Comments History of Present Illness Details The patient is an 79 year old male with a past medical history of type 2 diabetes, hypertension, atrial fibrillation, CAD, CKD, anemia, ANURADHA, barretts esophagus presenting for follow up CV: On amiodarone, furosemide, toprol, xarelto, crestor, aldactone. On BP 128/70. Denies chest pain, shortness of breath Type 2 diabetes: Trulicity increased to 1.5mg at last visit, jardiance 25mg, januvia, glipizide 10mg twice daily. A1C 7.3%. Sees nephrology. Denies hypoglycemia ROS CONSTITUTIONAL: Denies weight loss, fever and chills. HEENT: Denies changes in vision and hearing. RESPIRATORY: Denies SOB and cough. CV: Denies palpitations and CP GI: Denies abdominal pain, nausea, vomiting and diarrhea. : Denies dysuria and urinary frequency. MSK: Denies new myalgia and joint pain. SKIN: Denies rash and pruritus. NEUROLOGICAL: Denies headache PSYCHIATRIC: Denies recent changes in mood. PHYSICAL EXAM: GENERAL: Alert and oriented x 3. NAD EYES: EOMI. Anicteric. HENT: Moist mucous membranes. No scleral icterus. No cervical lymphadenopathy. LUNGS: Clear to auscultation bilaterally. CARDIOVASCULAR: Regular rate and rhythm. No murmur. No JVD. ABDOMEN: Soft, non-tender +bs EXTREMITIES: No edema. Non-tender. SKIN: No rashes or lesions. Warm. NEUROLOGIC: No focal neurological deficits. CN II-XII grossly intact PSYCHIATRIC: Cooperative. Appropriate mood and affect [facility] Medical History CKD (chronic kidney disease), stage IV HLD (hyperlipidemia) Hypertension Paroxysmal atrial fibrillation Type 2 diabetes mellitus Family History Father Heart attack Mother Diabetes Social History Housing: Condominium Alcohol intake: current Alcohol intake frequency: holidays/special occasions only Patient Tobacco Use Status: Former Tobacco user service: No Current occupational status: retired Cognitive needs: No Hearing needs: No Vision needs: Yes (rx glasses) Questionnaire PHQ-9 Over the last 2 weeks, how often have you been bothered by any of the following problems? 1. Little interest or pleasure in doing things: not at all 2. Feeling down, depressed, or hopeless: not at all 3. Trouble falling or staying asleep, or sleeping too much: not at all 4. Feeling tired or having little energy: not at all 5. Poor appetite or overeating: not at all 6. Feeling bad about yourself - or that you are a failure or have let yourself or your family down: not at all 7. Trouble concentrating on things, such as reading the newspaper or watching television: not at all 8. Moving or speaking so slowly that other people could have noticed. Or the opposite - being so fidgety or restless that you have been moving around a lot more than usual: not at all 9. Thoughts that you would be better off or of hurting yourself in some way: not at all Total score: 0 Depression Screening Interpretation: Negative Depression Screening Done: Yes 79896 - PHQ-9 Billing: Yes Source: Developed by Drs. Rey Bonilla, Bhavana Hernandez, Ciro Hong and colleagues, with an educational maria l from [employer]. Thrive Questionnaire Date Thrive assessed: 06/09/24 I am a: Patient What is your living situation today?: I have a steady place to live Within the past 12 months, did the food you bought not last and you didn't have the money to get more?: Never true Within the past 12 months, did you worry whether your food would run out before you got money to buy more?: Never true Do you have trouble paying for medicines?: No Do you have trouble getting transportation to medical appointments?: No Do you have trouble paying your heating and electricity bill?: No Do you have trouble taking care of your child, family member or friend?: No Do you have trouble with day-to-day activities such as bathing, preparing meals, shopping, managing finances, etc.?: No Are you currently unemployed and looking for a job?: No Are you interested in more education?: No THRIVE Score: 0 AUDIT C Alcohol Use Questionnaire (AUDIT-C) 1. How often do you have a drink containing alcohol?: Monthly or less 2. How many drinks containing alcohol do you have on a typical day when you are drinking?: 1 or 2 3. How often do you have six or more drinks on one occasion?: Never Total Score: 1 TORO-7 AMB Questionnaire TORO-7 Date TORO - 7 assessed: 06/09/24 Feeling nervous, anxious, or on edge: 0 = Not at all Not being able to stop or control worryin = Not at all Worrying too much about different things: 0 = Not at all Trouble relaxin = Not at all Being so restless that it is hard to sit still: 0 = Not at all Becoming easily annoyed or irritable: 0 = Not at all Feeling afraid as if something awful might happen: 0 = Not at all Total TORO-7 score (0-4 normal; 5-9 mild; 10-14 moderate; 15-21 severe): 0 Source: Developed by Drs. Rey Bonilla, Bhavana Hernandez, Ciro Hong and colleagues, with an educational maria l from [employer]. Physical exam (Primary Care) Vital Signs: Last Vital Signs Temp 97.5 F 06/09/24 11:08 Pulse 80 06/09/24 11:08 Resp 16 06/09/24 11:08 BP 128/70 06/09/24 11:08 Pulse Ox 99 06/09/24 11:08 Oxygen Delivery Method Room Air 06/09/24 11:08 BMI result Body Mass Index 30.1 Tobacco/Smoking Status: Tobacco use Status Tobacco use date assessed 06/09/24 06/09/24 11:19 Patient Tobacco Use Status Former Tobacco user 06/09/24 11:19 PHQ-9: PHQ-9 Score PHQ-9: Total score 0 06/09/24 11:21 Depression Screening Interpretation: Negative Thrive Assessment: Date of Thrive Assessment Date Thrive assessed 06/09/24 06/09/24 11:19 Coding Level of Care Code Est Pt Level 4 (77263) Diagnoses Uncontrolled type 2 diabetes mellitus with hyperglycemia E11.65 Diabetes mellitus type: type 2 CKD (chronic kidney disease), stage IV N18.4 Additional Codes PHQ-9 - 80667 - PHQ-9 Billing: Yes ([id number]) Assessment & Plan Assessment & Plan (1) Uncontrolled diabetes mellitus with hyperglycemia: Code(s): E11.65 - Type 2 diabetes mellitus with hyperglycemia Category: Medical Qualifiers: Diabetes mellitus type: type 2 Qualified Code(s): E11.65 - Type 2 diabetes mellitus with hyperglycemia Plan: Close to controlled We discussed increased GLP however he would like to wait another 3 months for next A1C and reassessment (2) CKD (chronic kidney disease), stage IV: Code(s): N18.4 - Chronic kidney disease, stage 4 (severe) Category: Medical Plan: Stable kidney function. Continue nephrology follow up Orders: Orders Hemoglobin A1c 06/09/24 E11.65 - Type 2 diabetes mellitus with hyperglycemia Comprehensive Met. Panel 06/09/24 E11.65 - Type 2 diabetes mellitus with hyperglycemia
[2024-06-09 11:08] VITALS: BP 128/70; PULSE 80; RESP 16; TEMP 36.4; O2SAT 99; BMI 30.1
--- OUTSIDE RECORDS SUMMARY | 2024-06-09 12:36 | XMS_ITS | Encounter Summary ---
Author Organization [facility] Address 100 [facility] 200 [place] [address] Phone Care Team Providers Care Youth Director Name Role Phone Andres Skinner MD Primary Care Provider [phone] Encounter Details Date Type Department Care Team (Late st Contact Info) Description 11/18/2023 Office Communication [facility] [address] [facility] 200 [place] [phone] Savanah Estrada ARNP [address] [address] Social History Tobacco Use Types [...] Visit [facility] P.[facility] 2281 [facility] 204 [place] [address] Savanah Estrada ARNP [address] [address] documented as of this encounter Visit Diagnoses Not on filedocumented in this encounter Care Teams Youth Director Relationship Specialty Start Date End Date Andres Skinner MD [address] [place] PCP - General Internal Medicine 10/04/20 documented as of this encounter
--- OUTSIDE RECORDS SUMMARY | 2024-06-09 12:36 | XMS_ITS | Encounter Summary ---
Author Organization [facility] Address [address] [address] Phone Care Team Providers Care Planishing Hammer Operator Name Role Phone Andres Skinner MD Primary Care Provider [phone] Encounter Details Date Type Department Care Team (Late st Contact Info) Description 06/08/2024 Documentation Only [facility] [address] [phone] Carmen Parmar [address] [address] Social History Tobacco Use [...] Office Visit [facility] [address] [address] Savanah Estrada ARNP [address] [address] documented as of this encounter Procedures Procedure Name Priority Date/Time Associated Diagnosis Comments EXT RESULT ENTRY Routine 06/06/2024 documented in this encounter Results * (ABNORMAL) EXT RESULT ENTRY (06/06/2024) WBC 7.7 3.3 - 10.0 10*3/ML Red Blood Cell Count 4.47 Hemoglobin 14.1 13.5 - 17.5 Hematocrit 41.6 41.0 - 53.0 Platelets 230 150 - 399 10*3/UL Iron 77 UG/DL Iron Saturation (TSat) 30 % TIBC 260 ug/dL Ferritin 112.0 18.0 - 300.0 NG/ML Sodium 140 137 - 147 Potassium 4.5 3.4 - 5.5 Carbon Dioxide 22 mmol/L BUN 41(A) 4 - 21 mg/dL Creatinine 2.42(A) 0.60 - 1.30 mg/dL Calcium 9.4 8.7 - 10.7 mg/dL eGFR Non-Afr Palauan 25 Protein Urine Random 15 Creatinine, Urine Random 53.35 mg/dL Urine Protein/Creatin ine Ratio 0.24 mg/g creat 06/06/2024 us Historical Provider LAB BLOOD ORDERABLES Jane l Result documented in this encounter Visit Diagnoses Not on filedocumented in this encounter Care Teams Planishing Hammer Operator Relationship Specialty Start Date End Date Andres Skinner MD [address] [place] [address] DRIVE [address] [place] PCP - General Internal Medicine 10/04/20 documented as of this encounter
--- OUTSIDE RECORDS SUMMARY | 2024-06-09 12:37 | XMS_ITS | Clinical Summary ---
Author Organization [employer] Address 75 [facility] 7t [place] [address] Care Team Providers Care Addiction Treatment Counselor Name Role Phone Unavailable Primary Care Provider [...] patient's age to complete this topic Insurance [facility] MEDICARE
--- OUTSIDE RECORDS SUMMARY | 2024-06-09 12:37 | XMS_ITS | Encounter Summary ---
Author Organization [facility] Address 100 [facility] 200 [place] [address] Phone Care Team Providers Care Security Assessor Name Role Phone Andres Skinner MD Primary Care Provider Reason for Visit * Reason Comments Med Refill Encounter Details Date Type Department Care Team (Late st Contact Info) Description 07/05/2023 Refill [facility] 100 [facility] 200 [place] [phone] Marlo Pizano MD [address] [place] [address], [address] [address] Hypertension (Primary Dx) Social History Tobacco Use [...] Visit [facility] P.[facility]aren [address] [address] Savanah Estrada ARNP [address] [address] documented as of this encounter Visit Diagnoses Diagnosis Hypertension- Primary documented in this encounter Care Teams Security Assessor Relationship Specialty Start Date End Date Andres Skinner MD [address] [facility] [place] PCP - General Internal Medicine 10/04/20 documented as of this encounter
--- OUTSIDE RECORDS SUMMARY | 2024-06-09 12:37 | XMS_ITS | Clinical Summary ---
Author Organization [facility] Address [address] [address] Phone Care Team Providers Care Vp Data Name Role Phone Andres Skinner MD Primary Care Provider [phone] Allergies No known active allergies Medications Multiple [...] Encounters Date Type Department Care Team Description 06/08/2024 Documentation Only [facility] [address] [address] Carmen Parmar 03/31/2024 Office Communication [facility] [address] [address] Damaris Coon 03/27/2024 1:30 PM EST Office Visit [facility] [address] [address] Saavnah Estrada ARNP Chronic kidney disease, stage 4 [...] Office Visit [facility] [address] [address] Savanah Estrada ARNP [address] [address] Health Maintenance Due Date Last Done Comments Pneumococcal Vaccine: 65+ Years (1 of 2 - PCV) 1951 Diabetes: Ophthalmology Exam 11/26/2020 Diabetes: Pedal Pulse Checked 11/26/2020 Diabetes: Sensory Foot Exam 11/26/2020 Diabetes: Visual Foot Exam 11/26/2020 Influenza Vaccine (#1) 2023 Diabetes: Hemoglobin A1C 02/15/2024 024, 06/29/2023, 04/22/2022, Additional history exists Hepatitis B Vaccine Aged Out No longe r eligible based on patient's age to complete this topic Procedures Procedure Name Priority Date/Time Associated Diagnosis Comments EXT RESULT ENTRY Routine 06/06/2024 EXT RESULT ENTRY Routine 03/20/2024 HEMOGLOBIN A1C Routine 11/15/2023 11:40 AM EDT Chronic kidney disease, stage 4 (severe) (HCC) from Last 3 Months or Most Recently Relevant to Health Maintenance Results * (ABNORMAL) EXT RESULT ENTRY (06/06/2024) Only the most recent of2 resultswithin the time period is included. WBC 7.7 3.3 - 10.0 10*3/ML Red [...] 9.4 8.7 - 10.7 mg/dL eGFR Non-Afr Turkish 25 Protein Urine Random 15 Creatinine, Urine Random 53.35 mg/dL Urine Protein/Creatin ine Ratio 0.24 mg/g creat 06/06/2024 Kobe Provider LAB BLOOD ORDERABLES Jane l Result * (ABNORMAL) Hemoglobin A1c (11/15/2023 11:40 AM EDT) Hemoglobin A1C 11.8(H) 4.8 - 5.6 % [facility] [place] Comment: ? Prediabetes: 5.7 - 6.4 ? Diabetes: >6.4 ? Glycemic control for adults with diabetes: <7.0 Blood (Blood, Venous) 11/15/2023 11:40 AM EDT 11/15/2023 Anya Naik MD LAB BLOOD ORDERABLES Final Result [facility] Willian Quiroz [address] [place] [address] from Last 3 Months or Most Recently Relevant to Health Maintenance Insurance MEDICARE [facility] MEDICARE [facility] [place] [id number] Care Teams Vp Data Relationship Specialty Start Date End Date Andres Skinner MD [address] [facility] [address] [address] [address] [place] PCP - General Internal Medicine 10/04/20
== END 2024-06-09 11:38 | disposition home or self-care (01) ==
LOC: HO.HMCHD 10:57
PROVIDERS: PCP Internal Medicine; Visit Provider Internal Medicine
DX: E11.65 Type 2 diabetes mellitus with hyperglycemia (principal); N18.4 Chronic kidney disease, stage 4 (severe)

== ENCOUNTER → 2024-06-09 10:57 | Outpatient (BNVA) | payer MEDICARE, OTHER, SELFPAY | PROVIDERS: PCP Internal Medicine; Visit Provider Internal Medicine | DX: E11.65 Type 2 diabetes mellitus with hyperglycemia (principal); E11.22 Type 2 diabetes mellitus with diabetic chronic kidney disease; I12.9 Hypertensive chronic kidney disease with stage 1 through stage 4 chronic kidney disease, or unspecified chronic kidney disease; N18.4 Chronic kidney disease, stage 4 (severe); I48.91 Unspecified atrial fibrillation; Z79.01 Long term (current) use of anticoagulants; Z79.4 Long term (current) use of insulin; Z79.899 Other long term (current) drug therapy | CPT/HCPCS: 96127; 99212 ==

== ENCOUNTER 2024-09-12 09:18 | Outpatient (REF) | payer MEDICARE, OTHER, SELFPAY ==
[2024-09-12 09:48] LABS: MANUAL DIFF FLAG NO
--- OUTSIDE RECORDS SUMMARY | 2024-09-12 10:00 | XMS_ITS | Encounter Summary ---
Author Organization [facility] Address 100 [facility] 200 [place] [address] Phone Care Team Providers Care Bar Welder Name Role Phone Ashly Baltazar MD Primary Care Provider [phone] Encounter Details Date Type Department Care Team (Late st Contact Info) Description 11/18/2023 Office Communication [facility] [address] [phone] Savanah Estrada ARNP [address] [address] Social History Tobacco Use Types [...] Care Team (Late st Contact Info) Description 11/20/2024 1:15 PM EDT Office Visit [facility] P.CKaren [address] [address] Savanah Estrada ARNP [address] [address] documented as of this encounter Visit Diagnoses Not on filedocumented in this encounter Care Teams Bar Welder Relationship Specialty Start Date End Date Ashly Baltazar MD [address] [place] [address], [address] [place], [place] [phone] PCP - General Internal Medicine 07/24/24 documented as of this encounter
[2024-09-12 10:07] LABS: Basophils Percent Auto 0.5 % (0-2); Eosinophils Absolute Auto 0.1 X10*3/uL (0.0-0.4); Eosinophils Percent Auto 1.8 % (0-4); Hematocrit 37.2 % (42.0-52.0); Hemoglobin 12.8 g/dl (14.0-18.0); Imm Gran Abs Auto 0.03 X10*3/uL (0.00-0.03); Imm Gran Pct Auto 0.5 % (0.0-0.4); Lymphocytes Absolute Auto 1.4 X10*3/uL (1.2-4.9); Mean Corpuscular HGB Conc 34.4 g/dl (31.0-36.0); Mean Corpuscular Hemoglobin 31.1 pg (27.0-33.0); Mean Corpuscular Volume 90.3 fL (80.0-98.0); Mean Platelet Volume 9.3 fL (9.4-12.4); Monocytes Absolute Auto 0.5 X10*3/uL (0.1-1.2); Monocytes Percent Auto 7.9 % (2-11); Neutrophils Absolute Auto 4.5 x10*3/uL (2.0-8.3); Neutrophils Percent Auto 68.3 % (45-73); Platelet Count 209 X10*3/uL (160-400); Red Blood Count 4.12 X10*6/uL (4.60-5.80); Red Cell Distribution Width 11.9 % (11.0-16.0); White Blood Count 6.6 X10*3/uL (4.8-10.8)
[2024-09-12 10:25] LABS: Estimated Average Glucose 237 mg/dL; Hemoglobin A1c % 9.9 % (<6.0)
[2024-09-12 10:32] LABS: Anion Gap 9 (12-20); Blood Urea Nitrogen 44 mg/dL (9-16); Carbon Dioxide 26 mmol/L (22-29); Chloride 110 mmol/L (96-108); Estimated Glomerular Filt Rate 32; Potassium 4.9 mmol/L (3.3-5.1); Sodium 140 mmol/L (135-145)
[2024-09-12 10:34] LABS: Alanine Aminotransferase 67 U/L (0-40); Albumin Level 3.8 g/dL (3.5-5.0); Alkaline Phosphatase 67 U/L (39-117); Anion Gap 9 (12-20); Aspartate Amino Transferase 29 U/L (5-37); Bilirubin Total 0.4 mg/dL (0.0-1.0); Blood Urea Nitrogen 44 mg/dL (9-16); Calcium 9.1 mg/dL (8.4-10.2); Carbon Dioxide 26 mmol/L (22-29); Chloride 110 mmol/L (96-108); Estimated Glomerular Filt Rate 32; Glucose Random 253 mg/dL (60-115); Sodium 140 mmol/L (135-145); Total Protein 6.4 g/dL (6.5-8.0)
[2024-09-12 10:39] LABS: Parathyroid Hormone Intact 63.8 pg/mL (8.7-77.1)
[2024-09-12 11:06] LABS: Creatinine Urine 81.55 mg/dL; Protein/Creatinine Ratio, Ur 0.26 (<0.2); Total Protein Urine Random 21 mg/dL (<12)
[2024-09-17 15:24] LABS: VITAMIN D (1,25 OH) D3 11 pg/mL; Vit D (1,25-Dihydroxy) Total 11 pg/mL (18-72); Vitamin D (1,25 OH) D2 <8 pg/mL
== END 2024-09-12 09:19 | disposition home or self-care (01) ==
LOC: HO.LAB 09:18
PROVIDERS: PCP Internal Medicine; Visit Provider Internal Medicine Nephrology
DX: E11.65 Type 2 diabetes mellitus with hyperglycemia (principal); I12.9 Hypertensive chronic kidney disease with stage 1 through stage 4 chronic kidney disease, or unspecified chronic kidney disease; N18.4 Chronic kidney disease, stage 4 (severe); D63.1 Anemia in chronic kidney disease; E55.9 Vitamin D deficiency, unspecified
CPT/HCPCS: 36415; 80051; 80053; 82310; 82565; 82570; 82652; 83036; 83735; 83970; 84156; 84520; 85025

== ENCOUNTER 2024-09-15 13:59 | Outpatient (AMB) | payer MEDICARE, OTHER, SELFPAY ==
--- OUTSIDE RECORDS SUMMARY | 2024-09-15 14:01 | XMS_ITS | Encounter Summary ---
Author Organization [facility] [place] Address 100 [facility] 200 [place] [address] Phone Care Team Providers Care Cokeman Name Role Phone Ashly Baltazar MD Primary Care Provider [phone] Encounter Details Date Type Department Care Team (Late st Contact Info) Description 11/18/2023 Office Communication [facility] 100 [facility] [address] [phone] Savanah Estrada ARNP [address] [address] Social History Tobacco Use Types [...] Visit [facility] P.CKaren [address] [address] Savanah Estrada ARNP [address] [address] documented as of this encounter Visit Diagnoses Not on filedocumented in this encounter Care Teams Cokeman Relationship Specialty Start Date End Date Ashly Baltazar MD [address] [place] [address], [address] [place], [place] [id number] PCP - General Internal Medicine 07/24/24 documented as of this encounter
--- NOTE | 2024-09-15 14:03 | MHC.PC.OV ---
Vital Signs 09/15/24 14:06 Height 5 ft 10 in Weight 218 lb BMI 31.3 BP 124/70 Blood Pressure Location Rt brachial Position Sitting Pulse 68 Pulse Source Pulse Oximeter Temp 97.4 F Temp Source Axillary Pulse Oximetry (%) 96 Oxygen Delivery Method Room Air Intake Visit Reasons: Routine Plastic Design Applier Required: No Accompanied by: Self / Same As Patient Allergies No Known Allergies (No Known Allergies*) Allergy (Verified 09/15/24 14:10) Tobacco use date assessed: 09/15/24 Fall risk assessment: No Falls in past year Last assessed Fall Risk: 09/15/24 Dental Screening Dental Screen Date: 09/15/24 Did you have a dental visit in the last 12 months?: Yes Did you have a dental problem in the last 6 months where you did not have access to dental care?: No HPI HPI Comments History of Present Illness Details The patient is an 79 year old male with a past medical history of type 2 diabetes, hypertension, atrial fibrillation, CAD, CKD, anemia, NAURADHA, barretts esophagus presenting for follow up CV: On amiodarone, furosemide, toprol, xarelto, crestor, aldactone. Controlled BP Denies chest pain, shortness of breath Type 2 diabetes: Trulicity 1.5mg, jardiance 25mg, januvia, glipizide 10mg twice daily. A1C 9.9 from 7.3%. Checks once weekly. Sees nephrology. Denies hypoglycemia. Stopped walking. Says diet really hasnt changed. ROS CONSTITUTIONAL: Denies weight loss, fever and chills. HEENT: Denies changes in vision and hearing. RESPIRATORY: Denies SOB and cough. CV: Denies palpitations and CP GI: Denies abdominal pain, nausea, vomiting and diarrhea. : Denies dysuria and urinary frequency. MSK: Denies new myalgia and joint pain. SKIN: Denies rash and pruritus. NEUROLOGICAL: Denies headache PSYCHIATRIC: Denies recent changes in mood. PHYSICAL EXAM: GENERAL: Alert and oriented x 3. NAD EYES: EOMI. Anicteric. HENT: Moist mucous membranes. No scleral icterus. No cervical lymphadenopathy. LUNGS: Clear to auscultation bilaterally. CARDIOVASCULAR: Regular rate and rhythm. No murmur. No JVD. ABDOMEN: Soft, non-tender +bs EXTREMITIES: No edema. Non-tender. SKIN: No rashes or lesions. Warm. NEUROLOGIC: No focal neurological deficits. CN II-XII grossly intact PSYCHIATRIC: Cooperative. Appropriate mood and affect [facility] Medical History CKD (chronic kidney disease), stage IV HLD (hyperlipidemia) Hypertension Paroxysmal atrial fibrillation Type 2 diabetes mellitus Surgical History History of colonoscopy (~03/03/13) Family History Father Heart attack Mother Diabetes Social History Housing: Condominium Alcohol intake: current Alcohol intake frequency: holidays/special occasions only Patient Tobacco Use Status: Former Tobacco user e-Cigarette/Vaping Use: Former Use service: No Current occupational status: retired Cognitive needs: No Hearing needs: No Vision needs: Yes (rx glasses) Questionnaire PHQ-9 Over the last 2 weeks, how often have you been bothered by any of the following problems? 1. Little interest or pleasure in doing things: not at all 2. Feeling down, depressed, or hopeless: not at all 3. Trouble falling or staying asleep, or sleeping too much: not at all 4. Feeling tired or having little energy: not at all 5. Poor appetite or overeating: not at all 6. Feeling bad about yourself - or that you are a failure or have let yourself or your family down: not at all 7. Trouble concentrating on things, such as reading the newspaper or watching television: not at all 8. Moving or speaking so slowly that other people could have noticed. Or the opposite - being so fidgety or restless that you have been moving around a lot more than usual: not at all 9. Thoughts that you would be better off or of hurting yourself in some way: not at all Total score: 0 Depression Screening Interpretation: Negative Depression Screening Done: Yes 34072 - PHQ-9 Billing: Yes Source: Developed by Drs. Rey Bonilla, Bhavana Hernandez, Ciro Hong and colleagues, with an educational maria l from [employer]. Thrive Questionnaire Date Thrive assessed: 09/15/24 I am a: Patient Within the past 12 months, did the food you bought not last and you didn't have the money to get more?: Never true Within the past 12 months, did you worry whether your food would run out before you got money to buy more?: Never true Do you have trouble paying for medicines?: No Do you have trouble getting transportation to medical appointments?: No Do you have trouble paying your heating and electricity bill?: No Do you have trouble taking care of your child, family member or friend?: No Do you have trouble with day-to-day activities such as bathing, preparing meals, shopping, managing finances, etc.?: No Are you currently unemployed and looking for a job?: No Are you interested in more education?: No THRIVE Score: 0 AUDIT C Alcohol Use Questionnaire (AUDIT-C) 1. How often do you have a drink containing alcohol?: Monthly or less 2. How many drinks containing alcohol do you have on a typical day when you are drinking?: 1 or 2 3. How often do you have six or more drinks on one occasion?: Less than monthly Total Score: 2 TORO-7 AMB Questionnaire TORO-7 Date TORO - 7 assessed: 09/15/24 Feeling nervous, anxious, or on edge: 0 = Not at all Not being able to stop or control worryin = Not at all Worrying too much about different things: 0 = Not at all Trouble relaxin = Not at all Being so restless that it is hard to sit still: 0 = Not at all Becoming easily annoyed or irritable: 0 = Not at all Feeling afraid as if something awful might happen: 0 = Not at all Total TORO-7 score (0-4 normal; 5-9 mild; 10-14 moderate; 15-21 severe): 0 Source: Developed by Drs. Rey Bonilla, Bhavana Hernandez, Ciro Hong and colleagues, with an educational maria l from [employer]. Physical exam (Primary Care) Vital Signs: Last Vital Signs Temp 97.4 F 09/15/24 14:06 Pulse 68 09/15/24 14:06 BP 124/70 09/15/24 14:06 Pulse Ox 96 09/15/24 14:06 Oxygen Delivery Method Room Air 09/15/24 14:06 BMI result Body Mass Index 31.3 Tobacco/Smoking Status: Tobacco use Status Tobacco use date assessed 09/15/24 09/15/24 14:15 Patient Tobacco Use Status Former Tobacco user 09/15/24 14:04 e-Cigarette/Vaping Use Former Use 09/15/24 14:15 PHQ-9: PHQ-9 Score PHQ-9: Total score 0 09/15/24 14:15 Depression Screening Interpretation: Negative Thrive Assessment: Date of Thrive Assessment Date Thrive assessed 09/15/24 09/15/24 14:15 Coding Level of Care Code Est Pt Level 4 (20235) Diagnoses Uncontrolled type 2 diabetes mellitus with hyperglycemia E11.65 Diabetes mellitus type: type 2 Paroxysmal atrial fibrillation I48.0 CKD (chronic kidney disease), stage IV N18.4 Elevated PSA R97.20 Additional Codes PHQ-9 - 55205 - PHQ-9 Billing: Yes ([id number]) Assessment & Plan Assessment & Plan (1) Uncontrolled diabetes mellitus with hyperglycemia: Code(s): E11.65 - Type 2 diabetes mellitus with hyperglycemia Category: Medical Qualifiers: Diabetes mellitus type: type 2 Qualified Code(s): E11.65 - Type 2 diabetes mellitus with hyperglycemia (2) Paroxysmal atrial fibrillation: Code(s): I48.0 - Paroxysmal atrial fibrillation Category: Medical (3) CKD (chronic kidney disease), stage IV: Code(s): N18.4 - Chronic kidney disease, stage 4 (severe) Category: Medical (4) Elevated PSA: Code(s): R97.20 - Elevated prostate specific antigen [PSA] Category: Medical Plan 79 year old for DM follow up Increase trulicity to 3mg weekly Add actos. Continue other medications. asked him to check BG daily Elevation in psa-recheck. okay for age Orders: Orders Hemoglobin A1c 3 Months E11.65 - Type 2 diabetes mellitus with hyperglycemia Comprehensive Met. Panel 3 Months E11.65 - Type 2 diabetes mellitus with hyperglycemia Prostate Specific Antigen 3 Months R97.20 - Elevated prostate specific antigen [PSA] Medications: New Trulicity (dulaglutide) 3 mg (0.5 mL) subcut QWEEK 6 mL 3RF NS E11.65 - Type 2 diabetes mellitus with hyperglycemia, I48.0 - Paroxysmal atrial fibrillation, N18.4 - Chronic kidney disease, stage 4 (severe) pioglitazone (Actos) 30 mg PO DAILY 90 tabs 3RF
[2024-09-15 14:06] VITALS: BP 124/70; PULSE 68; TEMP 36.3; O2SAT 96; BMI 31.3
== END 2024-09-15 14:26 | disposition home or self-care (01) ==
LOC: HO.HMCHD 13:59
PROVIDERS: PCP Internal Medicine; Visit Provider Internal Medicine
DX: E11.65 Type 2 diabetes mellitus with hyperglycemia (principal); I48.0 Paroxysmal atrial fibrillation; N18.4 Chronic kidney disease, stage 4 (severe); R97.20 Elevated prostate specific antigen [PSA]

== ENCOUNTER → 2024-09-15 13:59 | Outpatient (BNVA) | payer MEDICARE, OTHER, SELFPAY | PROVIDERS: PCP Internal Medicine; Visit Provider Internal Medicine | DX: E11.65 Type 2 diabetes mellitus with hyperglycemia (principal); I48.0 Paroxysmal atrial fibrillation; E11.22 Type 2 diabetes mellitus with diabetic chronic kidney disease; N18.4 Chronic kidney disease, stage 4 (severe); R97.20 Elevated prostate specific antigen [PSA]; I25.10 Atherosclerotic heart disease of native coronary artery without angina pectoris; Z79.01 Long term (current) use of anticoagulants; Z79.84 Long term (current) use of oral hypoglycemic drugs; Z79.85 Long-term (current) use of injectable non-insulin antidiabetic drugs; Z79.899 Other long term (current) drug therapy; Z13.31 Encounter for screening for depression; Z13.30 Encounter for screening examination for mental health and behavioral disorders, unspecified | CPT/HCPCS: 96127; 99212 ==

== ENCOUNTER 2024-12-08 10:23 | Outpatient (REF) | payer MEDICARE, OTHER, SELFPAY ==
[2024-12-08 10:46] LABS: MANUAL DIFF FLAG NO
[2024-12-08 11:18] LABS: Hematocrit 40.3 % (42.0-52.0); Hemoglobin 13.1 g/dl (14.0-18.0); Mean Corpuscular HGB Conc 32.5 g/dl (31.0-36.0); Mean Corpuscular Hemoglobin 31.8 pg (27.0-33.0); Mean Corpuscular Volume 97.8 fL (80.0-98.0); Red Blood Count 4.12 X10*6/uL (4.60-5.80); White Blood Count 5.4 X10*3/uL (4.8-10.8)
[2024-12-08 11:19] LABS: Imm Gran Abs Auto 0.03 X10*3/uL (0.00-0.03); Imm Gran Pct Auto 0.6 % (0.0-0.4); Lymphocytes Absolute Auto 1.1 X10*3/uL (1.2-4.9); NRBC Abs Auto 0.000 X10*3/uL (0.0-0.012); NRBC Pct Auto 0.0 /100WBC (0.0-0.2); Platelet Count 211 X10*3/uL (160-400)
[2024-12-08 11:50] LABS: Hemoglobin A1C 169.0897 umol/L; Total Hemoglobin (HGBA1C) 3430.5595 umol/L
--- OUTSIDE RECORDS SUMMARY | 2024-12-08 11:52 | XMS_ITS | Encounter Summary ---
Author Organization [facility] Address [address] [address] Phone Care Team Providers Care Hog Ribber Name Role Phone Ashly Baltazar MD Primary Care Provider [phone] Encounter Details Date Type Department Care Team (Late Contact Info) Description 12/08/2024 Orders Only [facility] [address] [address] Savanah Estrada ARNP [address] [address] Social History Tobacco Use Types [...] Encounters Date Type Department Care Team (Late Contact Info) Description 05/23/2025 1:30 PM EST Office Visit [facility] [address] [address] Savanah Estrada ARNP [address] [address] documented as of this encounter Procedures Procedure Name Priority Date/Time Associated Diagnosis Comments CBC AND DIFFERENTIAL Routine 12/08/2024 10:44 AM EDT documented in this encounter Results * (ABNORMAL) CBC and Differential (12/08/2024 10:44 AM EDT) WBC 5.4 4.8 - 10.8 X10*3/uL See order comments RBC 4.12(L) 4.60 - 5.80 X10*6/uL See order comments Hgb 13.1(L) 14.0 - 18.0 g/dl See order comments Hematocrit 40.3(L) 42.0 - 52.0 % See order comments MCV 97.8 80.0 - 98.0 fL See order comments MCH 31.8 27.0 - 33.0 pg See order comments MCHC 32.5 31.0 - 36.0 g/dl See order comments RDW 12.5 11.0 - 16.0 % See order comments Platelets 211 160 - 400 X10*3/uL See order comments MPV 9.3(L) 9.4 - 12.4 fL See order comments Neutrophils % Auto 68.7 45 - 73 % See order comments Immature Granulocytes 0.6(H) 0.0 - 0.4 % See order comments Lymphocytes Relative 20.3 20 - 40 % See order comments Monocytes 8.0 2 - 11 % See order comments Eosinophils Relative 2.0 0 - 4 % See order comments Basophils Relative 0.4 0 - 2 % See order comments nRBC Count 0.0 0.0 - 0.2 /100WBC See order comments Neutrophils Absolute 3.7 2.0 - 8.3 x10*3/uL See order comments Immature Grans (Absolute) 0.03 0.00 - 0.03 X10*3/uL See order comments Lymphocytes Absolute 1.1(L) 1.2 - 4.9 X10*3/uL See order comments Monocytes Absolute 0.4 0.1 - 1.2 X10*3/uL See order comments Eosinophils Absolute 0.1 0.0 - 0.4 X10*3/uL See order comments Basophils Absolute 0.0 0.0 - 0.2 X10*3/uL See order comments NRBC Absolute 0.000 0.0 - 0.012 X10*3/uL See order comments 12/08/2024 10:4 4 AM EDT 12/08/2024 10:44 AM EDT Savanah Estrada CINTHYA LAB BLOOD ORDERABLES Final Result HOLRADHA See order comments [place] [address] documented in this encounter Visit Diagnoses Not on filedocumented in this encounter Care Teams Hog Ribber Relationship Specialty Start Date End Date Ashly Baltazar MD [address] [place] [address], [address] [place] [address] PCP - General Internal Medicine 07/24/24 documented as of this encounter
--- OUTSIDE RECORDS SUMMARY | 2024-12-08 11:53 | XMS_ITS | Encounter Summary ---
Author Organization [facility] Address [address] [facility] [address] [place] [address] Phone Care Team Providers Care Composing Room Machinist Apprentice Name Role Phone Ashly Baltazar MD Primary Care Provider [phone] Reason for Visit * Reason Comments Med Refill Encounter Details Date Type Department Care Team (Late Contact Info) Description 07/05/2023 Refill [facility] [address] [facility] [address] [place] [phone] Marlo Pizano MD [address] [place] [address], [address] [address] Hypertension (Primary Dx) Social History Tobacco Use [...] Care Team (Late st Contact Info) Description 05/23/2025 1:30 PM EST Office Visit [facility] [address] [facility] [address] [place] [address] Savanah Estrada ARNP [address] [facility] [address] [place] [address] documented as of this encounter Visit Diagnoses Diagnosis Hypertension- Primary documented in this encounter Care Teams Composing Room Machinist Apprentice Relationship Specialty Start Date End Date Ashly Baltazar MD [address] [place] [address], [address] [place] [address] PCP - General Internal Medicine 07/24/24 documented as of this encounter
--- OUTSIDE RECORDS SUMMARY | 2024-12-08 11:53 | XMS_ITS | Patient Health Record ---
Author Organization [facility] Address [address] [place] [address] Care Team Providers Care Ion Implant Machine Operator Name Role Phone Susanne (RETIRED) Andres MORALES Primary Care Provide Farhat Levi Jr Unavailable Allergies Allergen (clinical drug ingredient) Drug/Non Drug Allergy documented on EMR Reaction Allergy Type Onset Date Status seasonal allergies (uncoded) Unknown Allergy Active Reason For Referral No Information Medications Medication SIG (Take, Route, Frequency, Duration) Notes Start Date End Date Status Rosuvastatin Calcium 40 MG TAKE 1 TABLET BY MOUTH EVERYDAY AT BEDTIME Oral for 90 Active MiraLax (colon prep) 8.3 ounce ((238) grams mixed with Gatorade or Crystal Light orally begin at 5:00 p.m. the day before the procedure for 1 day 02/02/2019 Active Xarelto 20 MG TAKE 1 TABLET BY CODIE TH EVERY DAY Oral for 90 Active Multivitamins Active amLODIPine Besylate 1 tablet Orally Once a day Active Omeprazole Active metFORMIN HCl 500 MG 2 tablets Orally tw ice a day Active glipiZIDE 2 tablets twice a day Active Lisinopril Active Atenolol Active Immunizations Vaccine Route Administration Date Status Comme nts Influenza Unknown 12/27/2018 Administered Problems Problem Type SNOMED Code ICD Code Onset Dates Problem Status W/U Status Risk Notes Problem 215804245 Colon cancer screening (Z12.11) Active confirmed Problem 819636473 manager terminal (curre nt) use of anticoagulants (Z79.01) Active confirmed Problem [id number] Long-term curren t use of high risk medication other than anticoagulant (Z79.899) Active confirmed Plan Of Treatment Future Test Test Name Order Date COLONOSCOPY 10/26/2012 COLONOSCOPY 02/02/2019 Insurance Providers Payer Name Payer Address Payer Phone Subscriber Number Group Number Insured Name Patient Relationship to Insured Coverage Start Date Coverage End Date MEDICARE OF [place] [address] [place] [address] [id number] RAHELMELVAPhilip GUTIERREZ Self - patient is the insured [facility] [address] [place] [address] [id number] GUTIERREZ MORALES Self - patient is the insured Medical (General) History Medical History History ICD Code colonoscopy 03/03/13, tubular adenoma, fi ve-year followup recommended. 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
--- OUTSIDE RECORDS SUMMARY | 2024-12-08 11:53 | XMS_ITS | Encounter Summary ---
Author Organization [facility] Address [address] [facility] [address] [place] [address] Phone Care Team Providers Care Adjunct Nursing Faculty Name Role Phone Ashly Baltazar MD Primary Care Provider Encounter Details Date Type Department Care Team (Late st Contact Info) Description 11/18/2023 Office Communication [facility] [address] [facility] [address] [phone] Savanah Estrada ARNP [address] [address] Social History Tobacco Use Types [...] Visit [facility] [address] [address] Savanah Estrdaa ARNP [address] [address] documented as of this encounter Visit Diagnoses Not on filedocumented in this encounter Care Teams Adjunct Nursing Faculty Relationship Specialty Start Date End Date Ashly Baltazar MD [address] [place] [address], [facility] [address] [place], [place] [id number] PCP - General Internal Medicine 07/24/24 documented as of this encounter
--- OUTSIDE RECORDS SUMMARY | 2024-12-08 11:53 | XMS_ITS | Clinical Summary ---
Author Organization [facility] Address [address] [facility] 7[address] [place] [address] Care Team Providers Care Automotive Service Manager Name Role Phone Unavailable Primary Care Provider Unavailabl e Immunizations Immunization Administration Dates Next Due Pfizer Covid-19 Vaccine [...] older (1 - 1-dose 75+ series) 2018 COVID-19 Vaccine ( season) 2024 01/06/2024, 04/09/2023, 04/20/2022, Additional history exists Influenza Vaccine (#1) 2024 HIB Vaccines Aged Out No longer eligi [...] patient's age to complete this topic Meningococcal B Vaccine Aged Out No l onger eligible based on patient's age to complete this topic Meningococcal Vaccine Aged Out No xavier nancie eligible based on patient's age to complete this topic RSV under 20 months Aged Out No longe r eligible based on patient's age to complete this topic Rotavirus Vaccines Aged Out No longer eligible based on patient's age to complete this topic Insurance [facility] MEDICARE Member Subscriber Plan / Payer ( fective 2023-Present) Name:Garrick Diallo Member ID:[id number] Relation to Subscriber:Self Name:Garrick Diallo Subscriber ID:[id number] Payer ID:STATE Group ID:Not on file Type:Medicare Address: [facility]. [address] [facility] [place] [place] [address]
--- OUTSIDE RECORDS SUMMARY | 2024-12-08 11:53 | XMS_ITS | Clinical Summary ---
Author Organization [facility] Address [address] [address] Phone Care Team Providers Care Fuse Cup Expander Name Role Phone Ashly Baltazar MD Primary Care Provider [phone] Allergies No known active allergies Medications Multiple Vitamin (MULTI-VITAMIN DAILY PO) Active amiodarone (PACERONE) 100 MG tablet Take 100 mg by mouth daily 9 Active furosemide (LASIX) 20 MG tablet Take [...] in the morning. Half a pill. . 1 Active omeprazole OTC (PriLOSEC OTC) 20 MG EC tablet Take 20 mg by mouth Active Rivaroxaban 15 & 20 MG tablet therapy pack Take 15 mg by mouth Active spironolactone (ALDACTONE) 50 MG tabletIndicatio ns:Hypertension TAKE 1 TABLET BY MOUTH 1 TIME EACH DAY. 90 tablet 3 4 Active fexofenadine (LORETTA) 60 MG tablet Take 60 mg by mouth 1 (one) time each day Active Trulicity 0.75 MG/0.5ML solution auto-injector 1 pen. Currently at 1.5 mg per pt . 4 Active rosuvastatin (CRESTOR) 40 MG tablet Take 40 mg by mouth 1 (one) time each day in the evening 5 Active Januvia 100 MG tablet Take 100 mg by mouth 1 (one) time each day 5 Active cholecalciferol (VITAMIN D-3) 125 MCG (5000 UT) capsuleIndicati ons:Vitamin D deficiency, not otherwise specified,Chron ic kidney disease, stage 4 (severe) (HCC) Take 1 capsule (5,000 Units total) by mouth in the morning. 30 capsule 11 5 09/26/19 26 Active pioglitazone (ACTOS) 30 MG tablet Take 30 mg by mouth 1 (one) time each day 5 Active Empagliflozin (Jardiance) 25 MG tabletIndicatio ns:Chronic kidney disease, stage 4 (severe) (HCC) Take 25 mg by mouth 1 (one) time each day in the morning 90 tablet 3 5 11/21/19 26 Active Empagliflozin (Jardiance) 25 MG tablet Take 25 mg by mouth 1 (one) time each day in the morning 30 tablet 5 5 11/21/19 25 Discontinu ed(Reorder (does not appear on AVS)) Active Problems Problem Noted Date Diagnosed Date Chronic kidney disease, stage 4 (severe) 024 Anemia in chronic kidney disease 11/22/2023 Vitamin D deficiency, not otherwise specified Hyperlipidemia 07/10/2021 Diabetes mellitus 07/10/2021 Chronic kidney disease, stage 2 (mild) 1 Type 2 diabetes mellitus wit h diabetic [...] Encounters Date Type Department Care Team Description 12/08/2024 Orders Only [facility] [address] [address] Savanah Estrada ARNP 11/20/2024 1:15 PM EDT Office Visit [facility] [address] [phone] Savanah Estrada ARNP Chronic kidney disease, stage 4 (severe) ([facility]) (Primary Dx); Hypertension; Anemia in chronic kidney disease; Vitamin D deficiency, not otherwise specified 10/27/2024 Orders Only [facility] [address] [phone] Savanah Estrada ARNP Chronic kidney disease, stage 4 (severe) (HCC); Hypertension; Anemia in chronic kidney disease; Vitamin D deficiency, not otherwise specified 09/25/2024 Refill [facility] [address] [phone] Belinda Comer MA 09/25/2024 Office Communication [facility] [address] [phone] Savanah Estrada ARNP 09/25/2024 Orders Only [facility] [address] [phone] Savanah Estrada ARNP Vitamin D deficiency, not otherwise specified (Primary Dx); Chronic kidney disease, stage 4 (severe) (HCC) 09/20/2024 Documentation Only [facility] [address] [phone] Belinda Comer MA from Last 3 Months Immunizations Immunization Administration Dates Next Due Pfizer SARS-COV-2 07/01/2020,06/10/2020 [...] Sign Reading Time Taken Comments Blood Pressure 130/60 11/20/2024 1:31 PM EDT Pulse 51 11/20/2024 1:12 PM EDT Temperature - - Respiratory Rate - - Oxygen Saturation 98% 11/20/2024 1:12 PM EDT Inhaled Oxygen Concentration - - Weight 99.9 kg (220 lb 3.2 oz) 11/20/2024 1:12 P M EDT Height 180.3 cm (5' 11 ) 07/10/2021 1:59 PM EDT Body Mass Index 30.71 07/10/2021 1:59 PM EDT Plan of Treatment Upcoming Encounters Date Type Department Care Team (Late st Contact Info) Description 05/23/2025 1:30 PM EST [facility] [address] [address] Savanah Estrada ARNP [address] [phone] Health Maintenance Due Date Last Done Comments Pneumococcal Vaccine: 50+ Years (1 of 2 - PCV) 1964 Diabetes: Ophthalmology Exam 11/26/2020 Diabetes: Pedal Pulse Checked 11/26/2020 Diabetes: Sensory Foot Exam 11/26/2020 Diabetes: Visual Foot Exam 11/26/2020 Diabetes: Hemoglobin A1C 02/15/2024 024, 06/29/2023, 04/22/2022, Additional history exists Influenza Vaccine (#1) 2024 Hepatitis B Vaccine Aged Out No longe r eligible based on patient's age to complete this topic Procedures Procedure Name Priority Date/Time Associated Diagnosis Comments CBC AND DIFFERENTIAL Routine 12/08/2024 10:44 AM EDT EXT RESULT ENTRY Routine 09/12/2024 HEMOGLOBIN A1C Routine 11/15/2023 11:40 AM EDT Chronic kidney disease, stage 4 (severe) (HCC) from Last 3 Months or Most Recently Relevant to Health Maintenance Results * (ABNORMAL) CBC and Differential (12/08/2024 [...] Estrada CINTHYA LAB BLOOD ORDERABLES Final Result MIKA See order comments [place] [address] * (ABNORMAL) EXT RESULT ENTRY (09/12/2024) Sodium 140 137 - 147 Potassium 5.0 3.4 - 5.5 Carbon Dioxide 26 mmol/L BUN 44(A) 4 - 21 mg/dL Calcium 9.1 8.7 - 10.7 mg/dL eGFR Non-Afr [place] 32 Protein Urine Random 21 Creatinine, Urine Random 81.55 mg/dL Urine Protein/Creatin ine Ratio 0.26 mg/g creat 09/12/2024 Historical Provider LAB BLOOD ORDERABLES Jane l Result * (ABNORMAL) Hemoglobin A1c (11/15/2023 11:40 AM EDT) Hemoglobin A1C 11.8(H) 4.8 - 5.6 % Elli Comment: Prediabetes: 5.7 - 6.4 Diabetes: >6.4 Glycemic control for adults with diabetes: <7.0 Blood specimen (specimen) Venous blood / Unknown 11/15/2023 11:40 AM EDT 11/15/2023 Anya Naik MD LAB BLOOD ORDERABLES Final Result [facility] [address] [place] [phone] from Last 3 Months or Most Recently Relevant to Health Maintenance Insurance Medicare [facility] [employer] Medicare [facility] Care Teams Fuse Cup Expander Relationship Specialty Start Date End Date Ashly Baltazar MD [address] [place] [address], [address] [place] [address] PCP - General Internal Medicine 07/24/24
[2024-12-08 12:20] LABS: Protein/Creatinine Ratio, Ur 0.29 (<0.2); Total Protein Urine Random 25 mg/dL (<12)
[2024-12-08 12:20] LABS: Parathyroid Hormone Intact 80.5 pg/mL (8.7-77.1)
[2024-12-08 12:32] LABS: Alanine Aminotransferase 27 U/L (0-40); Albumin Level 4.1 g/dL (3.5-5.0); Alkaline Phosphatase 65 U/L (39-117); Anion Gap 13 (12-20); Aspartate Amino Transferase 19 U/L (5-37); Blood Urea Nitrogen 40 mg/dL (9-16); Calcium 8.9 mg/dL (8.4-10.2); Carbon Dioxide 26 mmol/L (22-29); Chloride 108 mmol/L (96-108); Estimated Glomerular Filt Rate 28; Magnesium 2.3 mg/dL (1.6-2.6); Potassium 4.8 mmol/L (3.3-5.1); Sodium 142 mmol/L (135-145); Total Protein 6.6 g/dL (6.5-8.0)
[2024-12-08 12:45] LABS: Prostate Specific Antigen 4.45 ng/mL (<0.05-4.0)
== END 2024-12-08 10:24 | disposition home or self-care (01) ==
LOC: HO.LAB 10:23
PROVIDERS: Absent Provider Internal Medicine Nephrology; PCP Internal Medicine; Visit Provider Internal Medicine
DX: E11.22 Type 2 diabetes mellitus with diabetic chronic kidney disease (principal); I12.9 Hypertensive chronic kidney disease with stage 1 through stage 4 chronic kidney disease, or unspecified chronic kidney disease; N18.4 Chronic kidney disease, stage 4 (severe); D63.1 Anemia in chronic kidney disease; E11.65 Type 2 diabetes mellitus with hyperglycemia; E55.9 Vitamin D deficiency, unspecified; R97.20 Elevated prostate specific antigen [PSA]; Z12.5 Encounter for screening for malignant neoplasm of prostate
CPT/HCPCS: 36415; 80053; 82306; 82570; 83036; 83735; 83970; 84153; 84156; 85025

== ENCOUNTER 2024-12-15 09:59 | Outpatient (AMB) | payer MEDICARE, OTHER, SELFPAY ==
--- NOTE | 2024-12-15 10:13 | MHC.PC.OV ---
Vital Signs 12/15/24 10:20 Height 5 ft 10 in Weight 219 lb 8 oz BMI 31.5 BP 118/62 Blood Pressure Location Rt brachial Position Sitting Respiration 15 Pulse 66 Pulse Source Pulse Oximeter Temp 97.9 F Temp Source Temporal Artery Scan Pulse Oximetry (%) 98 Oxygen Delivery Method Room Air Intake Visit Reasons: follow/up DM GUILLERMINA from [facility] Intake Note: Garrick presents in the office today for a follow up to his diabetes. Allergies No Known Allergies (No Known Allergies*) Allergy (Verified 12/15/24 10:16) Tobacco use date assessed: 12/15/24 Fall risk assessment: No Falls in past year Last assessed Fall Risk: 12/15/24 Dental Screening Dental Screen Date: 12/15/24 Did you have a dental visit in the last 12 months?: Yes Did you have a dental problem in the last 6 months where you did not have access to dental care?: No Was dental information given to patient?: Patient has dentist HPI HPI Comments History of Present Illness Details The patient is an 79 year old male with a past medical history of type 2 diabetes, hypertension, atrial fibrillation, CAD, CKD, anemia, ANURADHA, barretts esophagus presenting for follow up CV: On amiodarone, furosemide, toprol, xarelto, crestor, aldactone. Blood pressure is controlled. Denies chest pain, shortness of breath. Type 2 diabetes: Trulicity 3mg, jardiance 25mg, januvia, glipizide 10mg twice daily and actos 30mg daily. A1C 11/2024 6.7% from 9.9 from 7.3%. Checks once weekly. Sees nephrology-Savanah Estrada. 11/2024 Cr 2.28. Denies hypoglycemia. Active taking care of ANURADHA-compliant with cpap. Follows in April. Mild elevation in psa. This is stable ROS CONSTITUTIONAL: Denies weight loss, fever and chills. HEENT: Denies changes in vision and hearing. RESPIRATORY: Denies SOB and cough. CV: Denies palpitations and CP GI: Denies abdominal pain, nausea, vomiting and diarrhea. : Denies dysuria and urinary frequency. MSK: Denies new myalgia and joint pain. SKIN: Denies rash and pruritus. NEUROLOGICAL: Denies headache PSYCHIATRIC: Denies recent changes in mood. PHYSICAL EXAM: GENERAL: Alert and oriented x 3. NAD EYES: EOMI. Anicteric. HENT: Moist mucous membranes. No scleral icterus. No cervical lymphadenopathy. LUNGS: Clear to auscultation bilaterally. CARDIOVASCULAR: Regular rate and rhythm. No murmur. No JVD. ABDOMEN: Soft, non-tender +bs EXTREMITIES: No edema. Non-tender. SKIN: No rashes or lesions. Warm. NEUROLOGIC: No focal neurological deficits. CN II-XII grossly intact PSYCHIATRIC: Cooperative. Appropriate mood and affect [facility] Medical History CKD (chronic kidney disease), stage IV HLD (hyperlipidemia) Hypertension Paroxysmal atrial fibrillation Type 2 diabetes mellitus Surgical History History of colonoscopy (~03/03/13) Family History (Updated 12/15/24 @ 10:19 by Araceli Milligan CMA) Father Heart attack Mother Diabetes Brother Substance abuse Alcoholism and drug addiction in family Social History (Updated 12/15/24 @ 10:20 by Araceli Milligan CMA) Housing: Condominium Alcohol intake: current Alcohol intake frequency: holidays/special occasions only Patient Tobacco Use Status: Former Tobacco user e-Cigarette/Vaping Use: Former Use Second Hand Smoke Exposure: No service: No Current occupational status: retired Cognitive needs: No Hearing needs: No Vision needs: Yes (rx glasses) Questionnaire PHQ-9 Over the last 2 weeks, how often have you been bothered by any of the following problems? 1. Little interest or pleasure in doing things: several days 2. Feeling down, depressed, or hopeless: several days 3. Trouble falling or staying asleep, or sleeping too much: several days 4. Feeling tired or having little energy: several days 5. Poor appetite or overeating: several days 6. Feeling bad about yourself - or that you are a failure or have let yourself or your family down: several days 7. Trouble concentrating on things, such as reading the newspaper or watching television: several days 8. Moving or speaking so slowly that other people could have noticed. Or the opposite - being so fidgety or restless that you have been moving around a lot more than usual: not at all 9. Thoughts that you would be better off or of hurting yourself in some way: not at all Total score: 7 Depression Screening Interpretation: Positive Depression Screening Follow-up: Declines treatment Depression Screening Done: Yes Source: Developed by Drs. Rey Bonilal, Bhavana Hernandez, Ciro Hong and colleagues, with an educational maria l from [employer] Thrive Questionnaire Date Thrive assessed: 12/12/24 I am a: Patient What is your living situation today?: I have a steady place to live Within the past 12 months, did the food you bought not last and you didn't have the money to get more?: Never true Within the past 12 months, did you worry whether your food would run out before you got money to buy more?: Never true Do you have trouble paying for medicines?: No Do you have trouble getting transportation to medical appointments?: Yes Do you have trouble paying your heating and electricity bill?: No Do you have trouble taking care of your child, family member or friend?: Yes Do you have trouble with day-to-day activities such as bathing, preparing meals, shopping, managing finances, etc.?: No Are you currently unemployed and looking for a job?: No Are you interested in more education?: No Please select the resources that you would like help with: Transportation and Care for elder or disabled Currently or been in a relationship where the following occur: No concerns reported THRIVE Score: 1 AUDIT C Alcohol Use Questionnaire (AUDIT-C) 1. How often do you have a drink containing alcohol?: Monthly or less 2. How many drinks containing alcohol do you have on a typical day when you are drinking?: 1 or 2 3. How often do you have six or more drinks on one occasion?: Never Total Score: 1 TORO-7 AMB Questionnaire TORO-7 Date TORO - 7 assessed: 09/15/24 Feeling nervous, anxious, or on edge: 1 = Several days Not being able to stop or control worryin = Several days Worrying too much about different things: 1 = Several days Trouble relaxin = Several days Being so restless that it is hard to sit still: 0 = Not at all Becoming easily annoyed or irritable: 1 = Several days Feeling afraid as if something awful might happen: 1 = Several days Total TORO-7 score (0-4 normal; 5-9 mild; 10-14 moderate; 15-21 severe): 6 Source: Developed by Drs. Rey Bonilla, Bhavana Hernandez, Ciro Hong and colleagues, with an educational maria l from [employer] Physical exam (Primary Care) Vital Signs: Last Vital Signs Temp 97.9 F 12/15/24 10:20 Pulse 66 12/15/24 10:20 Resp 15 12/15/24 10:20 BP 118/62 12/15/24 10:20 Pulse Ox 98 12/15/24 10:20 Oxygen Delivery Method Room Air 12/15/24 10:20 BMI result Body Mass Index 31.5 Tobacco/Smoking Status: Tobacco use Status Tobacco use date assessed 12/15/24 12/15/24 10:23 Patient Tobacco Use Status Former Tobacco user 12/15/24 10:20 e-Cigarette/Vaping Use Former Use 12/15/24 10:20 PHQ-9: PHQ-9 Score PHQ-9: Total score 7 12/15/24 10:29 Depression Screening Interpretation: Positive Depression Screening Follow-up: Declines treatment Thrive Assessment: Date of Thrive Assessment Date Thrive assessed 12/12/24 12/15/24 10:15 Currently or been in a relationship where the following occur: No concerns reported Office Procedures Flu Questionnaire Does the patient have a severe egg allergy?: No Does the patient have severe life threatening allergies?: No Does the patient have a fever or illness today?: No Has the patient ever had any past reaction to a flu shot?: No Immunizations Fluarix [id number] (PF) 45 mcg (15 mcg x 3)/0.5 mL IM syringe Performing Provider: sAhly Baltazar MD Performing Location[place] [facility] [place] [facility] Administered by: Araceli Milligan CMA on 12/15/24 11:38 Dose Route Admin Location Dispensed Lot Number Expiration Date [facility] Core Stripper 0.5 mL IM Right Deltoid 0.5 mL [id number] 09/25/25 [id number] [email or web address] VIS Given Date VIS Provided VIS Publication Date 12/15/24 Single Vaccine 24 Eligibility Eligibility Date Funding Source Not [facility] Eligible 12/15/24 Private Coding Level of Care Code Est Pt Level 4 (69513) Complex EM visit Add On G2211 Diagnoses Controlled diabetes mellitus E11.9 Paroxysmal atrial fibrillation I48.0 CKD (chronic kidney disease), stage IV N18.4 Elevated PSA R97.20 Assessment & Plan Assessment & Plan (1) Controlled diabetes mellitus: Code(s): E11.9 - Type 2 diabetes mellitus without complications Category: Medical (2) Paroxysmal atrial fibrillation: Code(s): I48.0 - Paroxysmal atrial fibrillation Category: Medical (3) CKD (chronic kidney disease), stage IV: Code(s): N18.4 - Chronic kidney disease, stage 4 (severe) Category: Medical (4) Elevated PSA: Code(s): R97.20 - Elevated prostate specific antigen [PSA] Category: Medical Plan Congratulated on interval diabetic control. A1c is excellent Continue current medications monitor psa q 6 months BP is well controlled on current medications Orders: Orders Hemoglobin A1c 3 Months E11.65 - Type 2 diabetes mellitus with hyperglycemia Prostate Specific Antigen 6 Months R97.20 - Elevated prostate specific antigen [PSA] Influenza [id number] Immunization Today Z23 - Encounter for immunization Comprehensive Met. Panel 3 Months E11.65 - Type 2 diabetes mellitus with hyperglycemia
[2024-12-15 10:20] VITALS: BP 118/62; PULSE 66; RESP 15; TEMP 36.6; O2SAT 98; BMI 31.5
--- OUTSIDE RECORDS SUMMARY | 2024-12-15 10:34 | XMS_ITS | Encounter Summary ---
Author Organization [facility] Address [address] [facility] [address] [facility] [address] [place] [address] Phone Care Team Providers Care Medical Collections Specialist Name Role Phone Ashly Baltazar MD Primary Care Provider Reason for Visit * Reason Comments Med Refill Encounter Details Date Type Department Care Team (Late Contact Info) Description 07/05/2023 Refill [facility] [address] [facility] [address] [place] [id number] Marlo Pizano MD [address] [place] [address], [address] [id number] Hypertension (Primary Dx) Social History Tobacco Use [...] [facility] [address] [facility] [address] [place] [address] Savanah Estrada ARNP [address] [facility] [address] [place] [address] documented as of this encounter Visit Diagnoses Diagnosis Hypertension- Primary documented in this encounter Care Teams Medical Collections Specialist Relationship Specialty Start Date End Date Ashly Baltazar MD [address] [place] [address], [address] [place] [address] PCP - General Internal Medicine 07/24/24 documented as of this encounter
--- OUTSIDE RECORDS SUMMARY | 2024-12-15 10:34 | XMS_ITS | Clinical Summary ---
Author Organization [facility] Address [address] [address] Phone Care Team Providers Care Flexboard Operator Name Role Phone Andres Skinner MD Primary Care Provider Dwaine White MD Unavailable [phone] Allergies No known active allergies Medications glipiZIDE (GLUCOTROL) 5 MG tablet Take 10 mg by mouth 2 (two) times a day before meals. Active rosuvastatin (CRESTOR) 40 MG tablet Take 40 mg by mouth daily. Active omeprazole (PRILOSEC) 20 mg TbEC Take 20 mg by mouth as needed. Active cholecalciferol (VITAMIN D3) 5,000 unit capsule Take 5,000 Units by mouth daily. Active pfswnife-jii-sga lewis fumarate 9 mg iron/15 mL Liqd Active vit C,V-mexpds-blkjf nthin-minerals (PRESERVISION AREDS-2) capsule Act baldomero furosemide (LASIX) 20 MG tablet Take 20 mg by mouth. Active rivaroxaban (XARELTO) 15 mg Tab Take 15 mg by mouth daily with dinner. Active amiodarone (PACERONE) 100 MG tabletIndication s:Paroxysmal atrial fibrillation Take 1 tablet (100 mg total) by mouth daily. 09/22/19 Active SITagliptin (JANUVIA) 100 MG tablet Take 100 mg by mouth daily. Active spironolactone (ALDACTONE) 50 MG tablet 25 mg. 07/11/19 Active JARDIANCE 25 mg tablet Take 25 mg by mouth daily. 02/27/20 Active metoprolol succinate (TOPROL-XL) 50 MG 24 hr tabletIndication s:Medication refill take 1 and 1/2 tablets by mouth daily 135 tablet 3 08/12/19 24 Active Additional Information Patient taking differently: 50 mgOral Every morning,Pt takes half tab daily 25 mg, Reported on 09/24/2023 fexofenadine (LORETTA) 60 MG tablet Take 60 mg by mouth daily. Dose unknown Active TRULICITY 1.5 mg/0.5 mL subcutaneous injection INJECT 1 APPLICATORFUL TO SKIN EVERY WEEK 04/21/19 25 Active Active Problems Problem Noted Date Diagnosed Date Venous insufficiency 05/07/2021 Assessment & Plan (01/12/2023 2:26 PM EDT): Doing well following his ablation last year, asymptomatic. Assessment & Plan (08/20/2021 1:13 PM EDT): His venous insufficiency to his left leg has resolved after having his left GSV ablation. He reports no symptoms at this time Assessment & Plan (05/07/2021 1:02 PM EST): He continues to report bilateral lower extremity [...] office visit. Acute congestive heart failure 09/20/2018 Assessment & Plan (08/01/2024 10:48 AM EDT): Patient is euvolemic on exam today. No symptoms concerning for heart failure exacerbation. We will continue on current medications without change. Assessment & Plan (08/20/2021 1:12 PM EDT): He is euvolemic on exam today. He will remain on his medications without change. I ordered a repeat echocardiogram due to him having increased shortness of breath with climbing stairs. We will have him follow-up with Dr. Gutierrez after the echocardiogram has been completed. Assessment & Plan (08/15/2019 3:35 PM EDT): No symptoms and euvolemic with improved systolic function. Assessment & Plan (02/07/2019 12:50 PM EST): Resolved. Appears euvolemic. Assessment & Plan (12/27/2018 1:19 PM EDT): His ECG today confirms sinus rhythm at a rate. QT interval is normal and other than some minor T wave flattening this is a benign tracing. His exam is not consistent with ongoing heart failure. He will have his echocardiogram repeated and I have asked him to undergo a pharmacologic nuclear stress test. He will have a proBNP drawn as well as his usual routine labs and will return to the office once these have been completed. Assessment & Plan (09/20/2018 2:01 PM EDT): His dyspnea has improved and edema is gone. I am making a presumptive diagnosis that this was an episode of heart failure at least until I can see the data. Paroxysmal atrial fibrillation 09/20/2018 Overview (02/07/2019): 12/2018 ECHO EF 55-60%; DD1; 1+MR; PAS 37 Assessment & Plan (08/01/2024 10:47 AM EDT): No symptoms concerning for atrial fibrillation. Heart rate regular and rate controlled on exam today. Patient will continue on amiodarone 100 mg daily, metoprolol succinate 25 mg daily and Xarelto 15 mg daily. I have placed an order for a BMP, liver and TSH lab as I do not see any recent ones on file. Assessment & Plan (08/20/2021 1:12 PM EDT): He is on Xarelto 20 mg daily for anticoagulation. He was in sinus bradycardia on EKG today. He is rate controlled on metoprolol 50 mg daily and amiodarone 100 mg daily. He will remain on all his medications without change. Assessment & Plan (02/13/2020 1:21 PM EST): No clinical episodes. Remains anticoagulated and on rate control medications. Assessment & Plan (08/15/2019 3:35 PM EDT): Remains in sinus rhythm today. I will have a TSH drawn today and repeated in 6 months. Assessment & Plan (02/07/2019 12:50 PM EST): Remains in sinus rhythm. On low-dose amiodarone. He will need routine TSH and LFTs and at some point should have an ophthalmologic exam and a chest x-ray. I have arranged for the blood work to be done fairly soon. They are going to [place] in several weeks and will be there until July. Assessment & Plan (12/27/2018 1:20 PM EDT): As above remains in sinus rhythm on low-dose amiodarone. Assessment & Plan (09/20/2018 2:02 PM EDT): As mentioned he is in sinus rhythm. No clear etiology at least in September can review his echocardiogram. Thyroid was apparently normal. Doubt underlying ischemic issue but that will need to be excluded at some point. Atherosclerosis of [place] co ronary artery of [place] heart without angina pectoris 02/24/2017 Overview (02/07/2019): 11/2003 PCI VAMSHI LAD EF 50% 12/2018 NUKE- EF 40% Assessment & Plan (08/01/2024 10:45 AM EDT): No symptoms concerning for angina he is pretty active without anginal symptoms. He is on Xarelto for atrial fibrillation. Patient will continue on rosuvastatin 40 mg daily LDL goal less than 55. No recent labs on file. I have placed an order for liver and a lipid panel. Assessment & Plan (01/12/2023 2:27 PM EDT): Denies concerning exertional symptoms today. We will continue to optimize his cardiovascular risk factors. He will remain on 81 mg aspirin indefinitely. LDL goal < 70 mg/dL on rosuvastatin. He does not smoke. His BP is slightly elevated in office today at 140/76. In the setting of weight loss back in February, his antihypertensive regimen has been decreased. His weights have since been stable. I've asked that he check his BP a few times weekly at home. If he is persistently > 130 systolic, he will let our office know and we will adjust his medications accordingly. I've encouraged him to resume his regular [place] the [place]. He stopped doing this after he had his venous ablation last year and just never really got back to it. He will let me know if he experiences any exertional symptoms as he resumes regular aerobic exercise. Assessment & Plan (08/20/2021 1:12 PM EDT): He remains chest pain-free. He does report increasing shortness of breath with climbing stairs. He did have a drug-eluting stent placed to his LAD in 2003.He is on Xarelto 20 mg daily for anticoagulation, metoprolol 50 mg daily, lisinopril 20 mg daily, furosemide 20 mg daily, Zetia 10 mg daily, amlodipine 10 mg daily, Bailey on 100 mg daily, rosuvastatin 40 mg daily, spironolactone 50 mg daily. Remain on his current medication regimen. He is encouraged to follow heart healthy diet, including low-sodium and to continue being active. Assessment & Plan (02/13/2020 1:20 PM EST): Doing well. Encouraged to be as active as he can be. Assessment & Plan (08/15/2019 3:35 PM EDT): Continuing to do well without cardiac symptoms. Assessment & Plan (02/07/2019 12:50 PM EST): No symptoms and no ischemia on nuclear stress testing. Assessment & Plan (12/27/2018 1:19 PM EDT): No angina. Schedule for pharmacologic nuclear stress testing. Assessment & Plan (09/20/2018 2:01 PM EDT): I need to see the work-up that was done at [facility] before deciding about next steps. I know he is at least had an echocardiogram as he did have a CHERRI but I do not know whether there was any functional testing done. He also will need a sleep study performed and I will refer him to [facility]. We discussed rate versus rhythm control strategies and clearly at present at least he is on a rhythm control. I made no further changes but will bring him back in about 3 months and have his labs repeated as well. Assessment & Plan (03/16/2018 2:20 PM EST): Asymptomatic. EKG today unchanged with sinus rhythm with sinus arrhythmia and a occasional APC and PVC. Assessment & Plan (09/14/2017 3:54 PM EDT): Doing well. No medication changes. Assessment & Plan (02/24/2017 1:41 PM EST): Now almost 14 years out from his intervention and remained symptom-free. He is not quite as active as is been in the past. He denies shortness of breath or palpitations. His ECG today reveals a sinus rhythm with sinus arrhythmia with occasional PACs and PVCs. Pure hypercholesterolemia 02/24/2017 Assessment & Plan (02/12/2021 1:17 PM EST): Lipids (panel scanned in [employer], dated 08/01/20) fairly well controlled on Crestor and Zetia. Assessment & Plan (02/13/2020 1:21 PM EST): Statin unchanged. No recent profile. Assessment & Plan (08/15/2019 3:36 PM EDT): Lipid-lowering therapy is unchanged including his high-dose statin. No recent lab work. Assessment & Plan (02/07/2019 12:51 PM EST): Remains on a statin. Lipid profile pending. Assessment & Plan (12/27/2018 1:20 PM EDT): Remains on Zetia and high-dose rosuvastatin. I will check a lipid profile with his next blood draw. Assessment & Plan (03/16/2018 2:20 PM EST): Well-controlled. LDL 44. Assessment & Plan (09/14/2017 3:54 PM EDT): Well-controlled. LDL in the 50s. Assessment & Plan (02/24/2017 1:42 PM EST): His LDL is still and 90s despite 40 mg of rosuvastatin. I've added 10 mg of Zetia. Benign essential hypertension 02/24/2017 Assessment & Plan (08/01/2024 10:46 AM EDT): Blood pressure elevated in office today 150/80. He does routinely check his blood pressure at home ranges around 120/80. Patient educated on HTN pathophysiology, htn medication, importance of low salt DASH heart healthy diet, exercise and home B/P monitoring. Patient will continue on current medications without change. Assessment & Plan (02/12/2021 1:15 PM EST): BP remains elevated at today's office visit despite increase in metoprolol to 75 mg back in July. He is hesitant to further uptitrate any medications. He tells me that he eats a fairly low sodium diet, but regular exercise has been a problem due to lower leg edema and heaviness . I have asked that he check his blood pressure 2-3 times per week at home and keep record of his readings. If these are consistently > 130 systolic, he will contact our office. Assessment & Plan (02/13/2020 1:20 PM EST): Borderline control on present therapy. No changes. Assessment & Plan (02/07/2019 12:51 PM EST): Fair control. No changes. Assessment & Plan (12/27/2018 1:19 PM EDT): Controlled on present therapy. No changes. Assessment & Plan (09/20/2018 2:01 PM EDT): Fair control on present therapy. Assessment & Plan (03/16/2018 2:21 PM EST): Controlled on present therapy. No changes. Assessment & Plan (09/14/2017 3:55 PM EDT): Mildly elevated today. I've asked him to begin to follow this at home and to call if he is over 130 the majority of the time. I would likely add Hydrocort thiazide to his present regimen. Assessment & Plan (02/24/2017 1:41 PM EST): His blood pressure remains mildly elevated. I have increased his amlodipine to 10 mg a day and warned him about the possibility of peripheral edema. Immunizations Immunization Administration Dates Next Due COVID-19 (Pre-01/18) Pfizer Vaccine, mRNA, PF ,06/10/2020 Td (adult) 5 Lf Tetanus Toxoid, PF, Adsorbed Family History Medical History Relation Comments Sleep disorder Neg Hx Social History Tobacco Use Types Packs/Day Years Used Date Smoking Tobacco: Former Cigarettes 1 20.9 1 960 - 02/25/1980 Smokeless Tobacco: Never Tobacco Cessation:Counseling Given: Not Answered Alcohol Use Standard Drinks/Week Comments Not Currently 0 (1 standard drink = 0.6 oz pur e alcohol) Education Answer Date Recorded Are you interested in more education? Not on jocelin e 07/24/2022 Are you concerned about learning? Not on file 07/24/2022 No 07/24/2022 No 07/24/2022 Digital Access Answer Date Recorded No 08/22/2022 No 08/22/2022 Reliable internet access at home? Not on file 08/22/2022 Device with a working camera? Not on file Sex and Gender Information Value Date Recorded Sex Assigned at Not on file Legal Sex Male 10:38 PM EDT Gender Identity Not on file Sexual Orientation Not on file Last Filed Vital Signs Vital Sign Reading Time Taken Comments Blood Pressure 150/80 08/01/2024 10:21 AM EDT Pulse 64 08/01/2024 10:21 AM EDT Temperature - - Respiratory Rate 16 02/13/2019 1:41 PM EST Oxygen Saturation 96% 08/01/2024 10:21 AM EDT Inhaled Oxygen Concentration - - Weight 97.5 kg (215 lb) 08/01/2024 10:21 AM EDT Height 177.8 cm (5' 10 ) 08/01/2024 10:21 AM EDT Body Mass Index 30.85 08/01/2024 10:21 AM EDT Plan of Treatment Upcoming Encounters Date Type Department Care Team (Late st Contact Info) Description 02/01/2025 11:00 AM EST Office Visit [facility] [address], [address] [place] [address] Leonides Gutierrez MD 22 [facility], [address] [address] [email or web address] 05/04/2025 12:20 PM EST Office Visit [facility] [address], [address] [place] [address] Rey Tavares MD, MS 22 [facility], [address] [place] [address] [email or web address] Health Maintenance Due Date Last Done Comments DEPRESSION SCREENING 1955 PNEUMOCOCCAL VACCINES (50+ years) (1 of 2 - PCV) 1962 ZOSTER VACCINES (1 of 2) 1993 RSV VACCINE (1 - 1-dose 75+ series) 2018 ALT LEVEL (ALANINE AMINOTRANSFERASE) 08/14/2020 08/15/2019 CREATININE LEVEL 08/14/2020 08/15/2019 POTASSIUM LEVEL 08/14/2020 08/15/2019 TSH LEVEL 08/14/2020 08/15/2019 INFLUENZA VACCINE (#1) 2024 COVID-19 VACCINE (3 - 2024-2 6 season) 2024 07/01/2020, 06/10/2020 BLOOD PRESSURE 02/01/2025 08/01/2024 Adult Td,Tdap Booster 09/23/2026 09/23/2016 HEPATITIS A VACCINES Aged Out No long er eligible based on patient's age to complete this topic HIB VACCINES Aged Out No longer eligi ble based on patient's age to complete this topic MENINGOCOCCAL VACCINES (ACWY) Aged Out No longer eligible based on patient's age to complete this topic MENINGOCOCCAL VACCINES (B) Aged Out N o longer eligible based on patient's age to complete this topic Medical Devices Not on file Procedures Procedure Name Priority Date/Time Associated Diagnosis Comments TSH WITH REFLEX Routine 08/15/2019 3:38 PM EDT Paroxysmal atrial fibrillation BASIC METABOLIC PANEL Routine 08/15/2019 3:38 PM EDT Paroxysmal atrial fibrillation LFTS (HEPATIC PANEL) Routine 08/15/2019 3:38 PM EDT Paroxysmal atrial fibrillation from Last 3 Months or Most Recently Relevant to Health Maintenance Results * TSH with reflex (08/15/2019 3:38 PM EDT) TSH 2.51 0.27 - 4.20 uIU/mL [facility] Blood 08/15/2019 3:38 PM EDT 08/15/2019 3:39 PM EDT us Dwaine White MD LAB BLOOD ORDERABLES Final Resu lt [address] [address] * LFTs (hepatic panel) (08/15/2019 3:38 PM EDT) ALKALINE PHOSPHATASE 62 39 - 117 U/L [facility] TOTAL BILIRUBIN 0.4 0.0 - 1.2 mg/dL [facility] DIRECT BILIRUBIN <0.2 0 - 0.3 mg/dL [facility] Bilirubin (Indirect) NOT CALCULATED 0 - 1.5 mg/dL [facility] AST 22 0 - 37 U/L [facility] ALT 33 0 - 40 U/L [facility] TOTAL PROTEIN 6.8 6.5 - 8.0 g/dL [facility] ALBUMIN 4.0 3.9 - 4.8 g/dL [facility] GLOBULIN 2.8 1 - 4.8 g/dL [facility] A/G Ratio 1.43 1.00 - 4.80 RATIO [facility] Blood 08/15/2019 3:38 PM EDT 08/15/2019 3:39 PM EDT Dwaine White MD LAB BLOOD ORDERABLES Final Resu lt Performing Organization Address City/[facility]/ZIP Co de Phone Number [address] [address] * (ABNORMAL) Basic metabolic panel (08/15/2019 3:38 PM EDT) SODIUM 139 133 - 146 mmol/L [facility] CHLORIDE 101 96 - 108 mmol/L [facility] POTASSIUM 4.3 3.3 - 5.1 mmol/L [facility] CO2 27 21 - 35 mmol/L [facility] BUN 15 6 - 19 mg/dL [facility] CREATININE 1.20 0.5 - 1.5 mg/dL [facility] GLUCOSE 257(H) 70 - 99 mg/dL [facility] CALCIUM 9.2 8.4 - 10.3 mg/dL [facility] EGFR 58(L) >59 mL/min/1.7 3m2 [facility] Comment:If patient is black, multiply result by 1.159. Estimated glomerular filtration rate calculated using the CKD-EPI equation. ANION GAP 15 10 - 20 mmol/L [facility] Blood 08/15/2019 3:38 PM EDT 08/15/2019 3:39 PM EDT Dwaine White MD LAB BLOOD ORDERABLES Final Resu lt Performing Organization Address City/[facility]/ZIP Co de Phone Number [address] [address] from Last 3 Months or Most Recently Relevant to Health Maintenance Insurance MEDICARE PART A & B [employer] MEDICARE SUPPLEMENT MEDICARE PART A & B [employer] MEDICARE SUPPLEMENT MEDICARE PART A & B [facility] MEDICARE SUPPLEMENT MEDICARE PART A & [facility] SUPPLEMENT MEDICARE PART A & B [facility] MEDICARE SUPPLEMENT MEDICARE PART A & B MEDICARE SUPPLEMENT MEDICARE PART A & B MEDICARE SUPPLEMENT MEDICARE PART A & B [employer] MEDICARE SUPPLEMENT MEDICARE PART A & B [employer] MEDICARE SUPPLEMENT [place] [id number] Care Teams Flexboard Operator Relationship Specialty Start Date End Date Andres Skinner MD [address] [place] [phone] PCP - General 01/14/17 Dwaine White MD [address] [place] [phone] [email or web address] Historical LMR Provider 01/14/17 Additional Source Comments The information contained in this document represents components of the legal health record. It is not the complete legal health record.[facility]
--- OUTSIDE RECORDS SUMMARY | 2024-12-15 10:34 | XMS_ITS | Encounter Summary ---
Author Organization [facility] Address [address] [facility] [address] [place] [address] Phone Care Team Providers Care Car Wash Supervisor Name Role Phone Andres Skinner MD Primary Care Provider Dwaine White MD Unavailable Encounter Details Date Type Department Care Team (Late st Contact Info) Description 05/07/2021 Procedure Pass [facility] [place] [address] Social History Tobacco Use Types Packs/Day Years Used Date Smoking Tobacco: Former Cigarettes Q uit: 02/25/1980 Smokeless Tobacco: Never Alcohol Use Standard Drinks/Week Comments Yes 0 (1 standard drink = 0.6 oz pur e alcohol) rare Sex and Gender Information Value Date Recorded Sex Assigned at Not on file Legal Sex Male 10:38 PM EDT Gender Identity Not on file Sexual Orientation Not on file documented as of this encounter Plan of Treatment Upcoming Encounters Date Type Department Care Team (Late st Contact Info) Description 02/01/2025 11:00 AM EST Office Visit [facility] [address] [place] [address] [address] [facility], [address] [place] [phone] Leonides Gutierrez MD [address] [place] [address], [address] [phone] 05/04/2025 12:20 PM EST Office Visit [facility] [address] [place] [address] 3rd [facility], [address] [address] Rey Tavares MD, MS 22 [facility], [address] [place] [address] [email or web address] documented as of this encounter Visit Diagnoses Not on filedocumented in this encounter Care Teams Car Wash Supervisor Relationship Specialty Start Date End Date Andres Skinner MD [address] [place] [phone] PCP - General 01/14/17 Dwaine White MD [address] [place] [phone] [email or web address] Historical LMR Provider 01/14/17 documented as of this encounter Additional Source Comments The information contained in this document represents components of the legal health record. It is not the complete legal health record.[facility]
--- OUTSIDE RECORDS SUMMARY | 2024-12-15 10:34 | XMS_ITS | Encounter Summary ---
Author Organization [facility] Address [address] [facility] [address] [place] [phone] Phone Care Team Providers Care Tester Operator Name Role Phone Andres Skinner MD Primary Care Provider Dwaine White MD Unavailable [phone] Encounter Details Date Type Department Care Team (Late st Contact Info) Description 08/20/2021 Procedure Pass [facility] [address] [place] [address] Social History Tobacco Use Types Packs/Day Years [...] Description 02/01/2025 11:00 AM EST Office Visit [facility] [address] [place] [address] 3rd [facility], [address] [place] [address] Leonides Gutierrez MD [address] [place] [address], [address] [address] 05/04/2025 12:20 PM EST Office Visit [facility] [address] [place] [address] [address] [facility], [address] [place] [phone] Rey Tavares MD, MS 22 [facility], [address] [place] [address] [email or web address] documented as of this encounter Visit Diagnoses Not on filedocumented in this encounter Care Teams Tester Operator Relationship Specialty Start Date End Date Andres Skinner MD [address] [place] [phone] PCP - General 01/14/17 Dwaine White MD [address] [place] [phone] [email or web address] Historical LMR Provider 01/14/17 documented as of this encounter Additional Source Comments The information contained in this document represents components of the legal health record. It is not the complete legal health record.[facility]
--- OUTSIDE RECORDS SUMMARY | 2024-12-15 10:34 | XMS_ITS | Clinical Summary ---
Author Organization [facility] Address [address] [facility] 7[address] [place] [address] Care Team Providers Care Roofing Contractor Name Role Phone Unavailable Primary Care Provider [...] patient's age to complete this topic Insurance [facility] MEDICARE
--- OUTSIDE RECORDS SUMMARY | 2024-12-15 10:34 | XMS_ITS | Clinical Summary ---
Author Organization [facility] Address [address] [address] Phone Care Team Providers Care Deputy Program Manager Name Role Phone Ashly Baltazar MD Primary Care Provider [phone] Allergies No known active allergies Medications Multiple [...] Only [facility] [address] [address] Savanah Estrada ARNP 11/20/2024 1:15 PM EDT Office Visit [facility] [address] [phone] Savanah Estrada ARNP Chronic kidney disease, stage 4 (severe) ([facility]) (Primary Dx); Hypertension; Anemia in chronic kidney disease; Vitamin D deficiency, not otherwise specified 10/27/2024 Orders Only [facility] [address] [phone] Savanah Estrada ARNP Chronic kidney disease, stage 4 (severe) (HCC); Hypertension; Anemia in chronic kidney disease; Vitamin D deficiency, not otherwise specified 09/25/2024 Refill [facility] [address] [phone] Belinda Comer MA 09/25/2024 Office Communication [facility] [address] [phone] Savanah Estrada ARNP 09/25/2024 Orders Only [facility] [address] [phone] Savanah Estrada ARNP Vitamin D deficiency, not otherwise specified (Primary Dx); Chronic kidney disease, stage 4 (severe) (HCC) 09/20/2024 Documentation Only [facility] [address] [phone] Belinda Comer MA from Last 3 Months [...] Office Visit [facility] [address] [phone] Savanah Estrada ARNP [address] [phone] Health Maintenance Due Date Last Done Comments [...] Procedure Name Priority Date/Time Associated Diagnosis Comments PROTEIN / CREATININE RATIO, URINE Routine 12/08/2024 11:02 AM EDT Chronic kidney disease, stage 4 (severe) (HCC) Hypertension Anemia in chronic kidney disease Vitamin D deficiency, not otherwise specified COMPREHENSIVE METABOLIC PANEL Routine 12/08/2024 10:44 AM EDT PTH, INTACT (HC) Routine 12/08/2024 10:4 4 AM EDT CBC AND DIFFERENTIAL Routine 12/08/2024 10:44 AM EDT VITAMIN D 25 HYDROXY Routine 12/08/2024 10:44 AM EDT Chronic kidney disease, stage 4 (severe) (HCC) Vitamin D deficiency, not otherwise specified MAGNESIUM Routine 12/08/2024 10:44 AM EDT Chronic kidney disease, stage 4 (severe) (HCC) Hypertension Anemia in chronic kidney disease HEMOGLOBIN A1C Routine 11/15/2023 11:40 AM EDT Chronic kidney disease, stage 4 (severe) (HCC) from Last 3 Months or Most Recently Relevant to Health Maintenance Results * (ABNORMAL) Urine Protein / creatinine ratio (12/08/2024 11:02 AM EDT) Creatinine, Urine 87.57 mg/dL See order comments Protein Urine Random 25(H) <12 mg/dL See order comments Protein/Creati nine Ratio, Urine 0.29(H) <0.2 See order comments Comment: The spot urine protein:creatinine ratio may increase to 0.3 during normal . Urine specimen (specimen) Urine specimen obtained by clean catch procedure / Unknown 12/08/2024 11:02 AM EDT 12/08/2024 11:02 AM EDT Savanah Estrada [facility] LAB URINE ORDERABLES Final Result [id number] See order comments [place] [address] * (ABNORMAL) PTH, Intact (12/08/2024 10:44 AM EDT) Parathyroid Hormone, Intact 80.5(H) 8.7 - 77.1 pg/mL See order comments 12/08/2024 10:4 4 AM EDT 12/08/2024 10:44 AM EDT Savanah Estrada [facility] LAB HISTORICAL-CONVERSIONS- UNSOLICITED RESULTS Final Result Performing Organization Address [facility] de Phone Number MIKA See order comments [place] [address] * Vitamin D 25 hydroxy (12/08/2024 10:44 AM EDT) Vitamin D, 25-Hydroxy 50.4 >30 ng/mL See order comments Comment: Health Based Reference Values* < 20 ng/mL Deficient 20-30 ng/mL Insufficient > 30 ng/mL Sufficient *Morgan REID. N Engl J Med. 2007;357:266-280 There is no well-established upper level of normal vitamin D levels. Some laboratories use 50 ng/mL as an upper limit of normal. However, toxicity is patient-dependent and may occur at any level. Careful correlation with the patient's presentation is necessary and, if there is concern for vitamin D toxicity, treatment should be considered irrespective of the serum level. Care must be taken in interpreting Vitamin D results from different laboratories and methodologies. Published data demonstrated that results from patients undergoing hemodialysis may show a negative bias when tested with various automated 25-OH vitamin D assays when compared to LC-MS/MS. When testing samples from patients whose predominant form of Vitamin D is Vitamin D2, such as patients receiving Vitamin D2 supplementation, results that are subtherapeutic should be confirmed with another method such as LC-MS/MS. Blood specimen (specimen) Venous blood / Unknown 12/08/2024 10:44 AM EDT 12/08/2024 10:44 AM EDT Savanah [facility] LAB BLOOD ORDERABLES Final Result Performing Organization Address [facility] Co de Phone Number MIKA See order comments [place] [address] * (ABNORMAL) CBC and Differential (12/08/2024 10:44 [...] AM EDT 12/08/2024 10:44 AM EDT Savanah Sean MENDES LAB BLOOD ORDERABLES Final Result [place] See order comments [place] [address] * Magnesium (12/08/2024 10:44 AM EDT) Magnesium 2.3 1.6 - 2.6 mg/dL See order comments Blood specimen (specimen) Venous blood / Unknown 12/08/2024 10:44 AM EDT 12/08/2024 10:44 AM EDT [facility] LAB BLOOD ORDERABLES Final Result MIKA See order comments [place] [address] * (ABNORMAL) Comprehensive Metabolic Panel (12/08/2024 10:44 AM EDT) Sodium 142 135 - 145 mmol/L See order comments Potassium 4.8 3.3 - 5.1 mmol/L See order comments Chloride 108 96 - 108 mmol/L See order comments Bicarbonate (CO2) 26 22 - 29 mmol/L See order comments Anion Gap 13 12 - 20 See order comments BUN 40(H) 9 - 16 mg/dL See order comments Creatinine Serum 2.28(H) 0.5 - 1.4 mg/dL See order comments eGFR (Calc) 28 See orde r comments Comment: Chronic Kidney Disease: Estimated GFR < 60 mL/min/1.73m2 Severe Kidney Disease: Estimated GFR < 15 mL/min/1.73m2 Glucose 166(H) 60 - 115 mg/dL See order comments Calcium 8.9 8.4 - 10.2 mg/dL See order comments Total Bilirubin 0.4 0.0 - 1.0 mg/dL See order comments AST (SGOT) 19 5 - 37 U/L See orde r comments ALT (SGPT) 27 0 - 40 U/L See orde r comments Total Protein 6.6 6.5 - 8.0 g/dL See order comments Albumin 4.1 3.5 - 5.0 g/dL See order comments Alkaline phosphatase 65 39 - 117 U/L See order comments 12/08/2024 10:4 4 AM EDT 12/08/2024 10:44 AM EDT [facility] LAB BLOOD ORDERABLES Final Result MIKA See order comments [place] [address] * (ABNORMAL) Hemoglobin A1c (11/15/2023 11:40 AM EDT) Hemoglobin A1C 11.8(H) 4.8 - 5.6 % [facility] Gabriella Comment: Prediabetes: 5.7 - 6.4 Diabetes: >6.4 Glycemic control for adults with diabetes: <7.0 Blood specimen (specimen) Venous blood / Unknown 11/15/2023 11:40 AM EDT 11/15/2023 Anya Naik MD LAB BLOOD ORDERABLES Final Result [facility] [address] [place] [phone] from Last 3 Months or Most Recently Relevant to Health Maintenance Insurance Medicare [facility] Medicare [facility] Care Teams Deputy Program Manager Relationship Specialty Start Date End Date Ashly Baltazar MD [address] [place] [address], [facility] [address] [place] [address] PCP - General Internal Medicine 07/24/24
--- OUTSIDE RECORDS SUMMARY | 2024-12-15 10:34 | XMS_ITS | Encounter Summary ---
Author Organization [facility] Address [address] [facility] [address] [place] [address] Phone Care Team Providers Care Aba Tutor Name Role Phone Ashly Baltazar MD Primary Care Provider [phone] Encounter Details Date Type Department Care Team (Late st Contact Info) Description 11/18/2023 Office Communication [facility] 100 [facility] [address] [phone] Savanah Estrada ARNP [address] [phone] Social History Tobacco Use Types [...] the [facility] [address] [address] Savanah Estrada ARNP [address] [address] documented as of this encounter Visit Diagnoses Not on filedocumented in this encounter Care Teams Aba Tutor Relationship Specialty Start Date End Date Ashly Baltazar MD [address] [place] [address], [facility] [address] [place], [place] [phone] PCP - General Internal Medicine 07/24/24 documented as of this encounter
== END 2024-12-15 11:34 | disposition home or self-care (01) ==
LOC: HO.HMCFM 10:01
PROVIDERS: PCP Internal Medicine; Visit Provider Internal Medicine
DX: E11.9 Type 2 diabetes mellitus without complications (principal); I48.0 Paroxysmal atrial fibrillation; N18.4 Chronic kidney disease, stage 4 (severe); R97.20 Elevated prostate specific antigen [PSA]; Z23 Encounter for immunization

== ENCOUNTER → 2024-12-15 09:59 | Outpatient (BNVA) | payer MEDICARE, OTHER, SELFPAY | PROVIDERS: PCP Internal Medicine; Visit Provider Internal Medicine | DX: E11.22 Type 2 diabetes mellitus with diabetic chronic kidney disease (principal); N18.4 Chronic kidney disease, stage 4 (severe); Z23 Encounter for immunization; I48.0 Paroxysmal atrial fibrillation; R97.20 Elevated prostate specific antigen [PSA]; G47.33 Obstructive sleep apnea (adult) (pediatric); Z79.01 Long term (current) use of anticoagulants; Z79.899 Other long term (current) drug therapy; Z13.31 Encounter for screening for depression | CPT/HCPCS: 90471; 90656; 96127; 99212 ==

== ENCOUNTER 2025-02-26 10:06 | Outpatient (REF) | payer MEDICARE, OTHER, SELFPAY ==
[2025-02-26 12:01] LABS: Alanine Aminotransferase 26 U/L (0-40); Albumin Level 3.9 g/dL (3.5-5.0); Alkaline Phosphatase 61 U/L (39-117); Anion Gap 13 (12-20); Aspartate Amino Transferase 22 U/L (5-37); Blood Urea Nitrogen 37 mg/dL (9-16); Calcium 8.8 mg/dL (8.4-10.2); Carbon Dioxide 23 mmol/L (22-29); Chloride 112 mmol/L (96-108); Estimated Glomerular Filt Rate 29; Potassium 4.8 mmol/L (3.3-5.1); Sodium 143 mmol/L (135-145); Total Protein 6.6 g/dL (6.5-8.0)
--- OUTSIDE RECORDS SUMMARY | 2025-02-26 12:24 | XMS_ITS | Encounter Summary ---
Author Organization [facility] Address [address] [facility] [address] [place] [address] Phone Care Team Providers Care Child Care Associate Name Role Phone Andres Skinner MD Primary Care Provider Dwaine White MD Unavailable [phone] Encounter Details Date Type Department Care Team (Late st Contact Info) Description 05/07/2021 Procedure Pass [facility] [place] [address] Social History Tobacco Use Types Packs/Day Years [...] Care Team (Late st Contact Info) Description 05/04/2025 12:20 PM EST Office Visit [facility] 3rd [facility], [address] [place] [address] Rey Tavares MD, [place] 22 [facility], [address] [phone] jose 08/07/2025 11:40 AM EDT Office Visit [facility] [address] [place] [address] 3rd [facility], [address] [phone] Leondies Gutierrez MD [address] [place] [address] [place] [address] [email or web address] documented as of this encounter Visit Diagnoses Not on filedocumented in this encounter Care Teams Child Care Associate Relationship Specialty Start Date End Date Andres Skinner MD [address] [place] [address] PCP - General 01/14/17 Dwaine White MD [address] [place] [address] [email or web address] Historical LMR Provider 01/14/17 documented as of this encounter Additional Source Comments The information contained in this document represents components of the legal health record. It is not the complete legal health record.[facility]
--- OUTSIDE RECORDS SUMMARY | 2025-02-26 12:24 | XMS_ITS | Clinical Summary ---
Author Organization [facility] Address [address] [address] Phone Care Team Providers Care Critical Care Registered Nurse Name Role Phone Andres Skinner MD Primary Care Provider Dwaine White MD Unavailable [phone] Allergies No known active allergies Medications glipiZIDE (GLUCOTROL) 5 MG tablet Take 10 mg by mouth 2 (two) times a day before meals. Active rosuvastatin (CRESTOR) 40 MG tablet Take 40 mg by mouth daily. Active omeprazole (PRILOSEC) 20 mg TbEC Take 20 mg by mouth as needed. Active cholecalciferol (VITAMIN D3) 5,000 unit capsule Take 5,000 Units by mouth daily. Active zwnjbeax-ekp-snh lewis fumarate 9 mg iron/15 mL Liqd Active vit C,V-hxxzwx-cffnl nthin-minerals (PRESERVISION AREDS-2) capsule Act baldomero furosemide [...] by mouth daily 135 tablet 3 08/12/19 Active Additional Information Patient taking differently: 50 mgOral Every morning,Pt takes half tab daily 25 mg, Reported on 02/01/2025 fexofenadine (LORETTA) 60 MG tablet Take 60 mg by mouth daily. Dose unknown Active TRULICITY 3 mg/0.5 mL subcutaneous injection Inject 3 mg under the skin every 7 days. 12/26/19 Active TRULICITY 1.5 mg/0.5 mL subcutaneous injection INJECT 1 APPLICATORFUL TO SKIN EVERY WEEK 04/21/19 025 Discontin ued(No longer taking) Active Problems Problem Noted Date Diagnosed Date [...] done fairly soon. They are going to [place] in several weeks and will be there [...] be excluded at some point. Atherosclerosis of [place] co ronary artery of [place] heart without angina pectoris 02/24/2017 Overview (02/07/2019): [...] see the work-up that was done at [place] before deciding about next steps. I know [...] 1:17 PM EST): Lipids (panel scanned in [employer], dated 08/01/20) fairly well controlled on Crestor [...] him about the possibility of peripheral edema. Encounters Date Type Department Care Team Description 02/01/2025 11:00 AM EST Office Visit [facility] [address] [place] [address] 3rd Floor, [address] [place] [address] Leonides Gutierrez MD Atrial fibrillation, unspecified type (Primary Dx); Benign essential hypertension; Atherosclerosis of [place] coronary artery of [place] heart without angina pectoris 01/26/2025 8:22 AM EDT - 01/26/2025 11:59 PM EDT Hospital Encounter [facility] [address] [place] [address] Jacqui Bethea DNP Discharge Disposition: Home or Self Care from Last 3 Months Immunizations Immunization Administration Dates Next Due COVID-19 [...] Sign Reading Time Taken Comments Blood Pressure 140/66 02/01/2025 10:53 AM EST Pulse 56 02/01/2025 10:53 AM EST Temperature - - Respiratory Rate 16 02/13/2019 1:41 PM EST Oxygen Saturation 97% 02/01/2025 10:53 AM EST Inhaled Oxygen Concentration - - Weight 101.6 kg (224 lb) 02/01/2025 10:53 AM EST Height 177.8 cm (5' 10 ) 02/01/2025 10:53 AM EST Body Mass Index 32.14 02/01/2025 10:53 AM EST Plan of Treatment Upcoming Encounters Date Type Department Care Team (Late st Contact Info) Description 05/04/2025 12:20 PM EST Office Visit [facility] [address] Floor, [address] [place] [address] Rey Tavares MD, [place] 22 [facility], [address] [address] jose 08/07/2025 11:40 AM EDT Office Visit [facility] [address] Floor, [address] [place] [address] Leonides Gutierrez MD 22 [facility], [address] [address] [email or web address] Health Maintenance Due Date Last Done Comments DEPRESSION SCREENING 1955 PNEUMOCOCCAL VACCINES (50+ years) (1 of 2 - PCV) 1962 ZOSTER VACCINES (1 of 2) 1993 RSV VACCINE (1 - 1-dose 75+ series) 2018 INFLUENZA VACCINE (#1) 2024 COVID-19 VACCINE (3 - 2024-2 6 season) 2024 07/01/2020, 06/10/2020 BLOOD PRESSURE 08/01/2025 02/01/2025 ALT LEVEL (ALANINE AMINOTRANSFERASE) 01/26/2026 01/26/2025, 08/15/2019 CREATININE LEVEL 01/26/2026 01/26/2025, 08/15/2019 POTASSIUM LEVEL 01/26/2026 01/26/2025, 08/15/2019 TSH LEVEL 01/26/2026 01/26/2025, 08/15/2019 Adult Td,Tdap Booster 09/23/2026 09/23/2016 HEPATITIS A [...] Procedure Name Priority Date/Time Associated Diagnosis Comments LFTS (HEPATIC PANEL) Routine 01/26/2025 8:33 AM EDT Atrial fibrillation, unspecified type TSH WITH REFLEX Routine 01/26/2025 8:33 AM EDT Atrial fibrillation, unspecified type LIPID PANEL Routine 01/26/2025 8:33 AM EDT Atrial fibrillation, unspecified type Hyperlipidemia, unspecified hyperlipidemia type BASIC METABOLIC PANEL (BMP) Routine 01/26/2025 8:33 AM EDT Atrial fibrillation, unspecified type from Last 3 Months Results * TSH with reflex (01/26/2025 8:33 AM EDT) TSH 2.21 0.27 - 4.20 uIU/mL [facility] Blood 01/26/2025 8:33 AM EDT 01/26/2025 8:38 AM EDT [facility] BKR ORDERABLES Final Result [address] [address] * LFTs (hepatic panel) (01/26/2025 8:33 AM EDT) ALKALINE PHOSPHATASE 68 39 - 117 U/L [facility] TOTAL BILIRUBIN 0.4 0.0 - 1.2 mg/dL [facility] DIRECT BILIRUBIN 0.1 0.0 - 0.2 mg/dL [facility] Bilirubin (Indirect) NOT CALCULATED 0 - 1.5 mg/dL [facility] AST 16 0 - 37 U/L [facility] ALT 16 0 - 40 U/L [facility] TOTAL PROTEIN 7.0 6.5 - 8.0 g/dL [facility] ALBUMIN 3.9 3.9 - 4.8 g/dL [facility] GLOBULIN 3.1 1 - 4.8 g/dL [facility] A/G Ratio 1.26 1.00 - 4.80 RATIO [facility] Blood 01/26/2025 8:33 AM EDT 01/26/2025 8:38 AM EDT Jacqui Eri [facility] LAB BLOOD BKR ORDERABLES Final Result [address] [address] * (ABNORMAL) Lipid panel (01/26/2025 8:33 AM EDT) Pathologist [facility] HDL 53 mg/dL [facility] Comment: Interpretation <40 mg/dL: Low HDL cholesterol (major risk factor for CHD) Greater than or equal to 60 mg/dL: High HDL cholesterol ( negative risk factor for CHD) HDL - cholesterol is affected by a number of factors, e.g. smoking, excerise, hormones, sex and age. CHOLESTEROL 164 0 - 240 mg/dL [facility] TRIGLYCERIDES 164(H) 30 - 160 mg/dL [facility] LDL 78 50 - 129 mg/dL [facility] Comment: LDL levels in terms of risk for coronary heart disease: <100 mg/dL: Optimal 100-129 mg/dL: Near or above optimal 130-159 mg/dL: Borderline high 160-189 mg/dL: High >190 mg/dL: Very High CARDIAC RISK RATIO 3.1(L) 3.4 - 5.0 [facility] Blood 01/26/2025 8:33 AM EDT 01/26/2025 8:38 AM EDT Jacqui Bethea DNP LAB BLOOD BKR ORDERABLES Final Result [facility] [address] [place] [address] * (ABNORMAL) Basic metabolic panel (01/26/2025 8:33 AM EDT) SODIUM 142 133 - 146 mmol/L [facility] CHLORIDE 107 96 - 108 mmol/L [facility] POTASSIUM 5.0 3.3 - 5.1 mmol/L [facility] CO2 22 21 - 35 mmol/L [facility] BUN 42(H) 6 - 19 mg/dL [facility] CREATININE 2.40(H) 0.5 - 1.5 mg/dL [facility] GLUCOSE 173(H) 70 - 99 mg/dL [facility] CALCIUM 9.2 8.4 - 10.3 mg/dL [facility] EGFR 26(L) >59 mL/min/1.7 3m2 [facility] Comment:Estimated glomerular filtration rate calculated using the CKD-EPI refit equation. ANION GAP 18 10 - 20 mmol/L [facility] Blood 01/26/2025 8:33 AM EDT 01/26/2025 8:38 AM EDT us Jacqui Bethea DNP LAB BLOOD BKR ORDERABLES Final Result [facility] [address] [place] [address] from Last 3 Months Insurance MEDICARE PART A & B [facility] MEDICARE SUPPLEMENT MEDICARE PART A & B [facility] MEDICARE SUPPLEMENT MEDICARE PART A & B [facility] MEDICARE SUPPLEMENT MEDICARE PART A & B [facility] MEDICARE SUPPLEMENT MEDICARE PART A & B [facility] MEDICARE SUPPLEMENT MEDICARE PART A & B [employer] SUPPLEMENT MEDICARE PART A & B [employer] MED[employer]ARE SUPPLEMENT MEDICARE PART A & B [facility] MEDICARE SUPPLEMENT MEDICARE PART A & B [facility] MEDICARE SUPPLEMENT Care Teams Critical Care Registered Nurse Relationship Specialty Start Date End Date Andres Skinner MD [address] [place] [address] [place] [address] PCP - General 01/14/17 Dwaine White MD [address] [place] [address] [email or web address] Historical LMR Provider 01/14/17 Additional Source Comments The information contained in this document represents components of the legal health record. It is not the complete legal health record.[facility]
--- OUTSIDE RECORDS SUMMARY | 2025-02-26 12:24 | XMS_ITS | Encounter Summary ---
Author Organization [facility] Address [address] [facility] [address] [place] [address] Phone Care Team Providers Care Home Mortgage Disclosure Act Specialist Name Role Phone Andres Skinner MD Primary Care Provider Dwaine White MD Unavailable [phone] Encounter Details Date Type Department Care Team (Late st Contact Info) Description 08/20/2021 Procedure Pass [facility] [address] [place] [address] Social History Tobacco Use Types Packs/Day Years [...] Description 05/04/2025 12:20 PM EST Office Visit [facility] 3rd [facility], [address] [place] [address] Rey Tavares MD, [place] 22 [facility], [address] [address] jose 08/07/2025 11:40 AM EDT Office Visit [facility] [address] [place] [address] 3rd [facility], [address] [place] [address] Leonides Gutierrez MD [address] [place] [address], [address] [place] [address] [email or web address] documented as of this encounter Visit Diagnoses Not on filedocumented in this encounter Care Teams Home Mortgage Disclosure Act Specialist Relationship Specialty Start Date End Date Andres Skinner MD [address] [place] [address] [address] [place] [address] PCP - General 01/14/17 Dwaine White MD [address] [place] [address] [email or web address] Historical LMR Provider 01/14/17 documented as of this encounter Additional Source Comments The information contained in this document represents components of the legal health record. It is not the complete legal health record.[facility]
--- OUTSIDE RECORDS SUMMARY | 2025-02-26 12:24 | XMS_ITS | Clinical Summary ---
Author Organization [facility] Address [address] [facility] 7t [place] [address] Care Team Providers Care Lawn Specialist Name Role Phone Unavailable Primary Care Provider [...] patient's age to complete this topic Insurance [facility] MEDICARE
== END 2025-02-26 10:07 | disposition home or self-care (01) ==
LOC: HO.LAB 10:06
PROVIDERS: Absent Provider Internal Medicine; PCP Internal Medicine; Visit Provider Internal Medicine Nephrology
DX: I12.9 Hypertensive chronic kidney disease with stage 1 through stage 4 chronic kidney disease, or unspecified chronic kidney disease (principal); N18.4 Chronic kidney disease, stage 4 (severe); E11.65 Type 2 diabetes mellitus with hyperglycemia; E11.22 Type 2 diabetes mellitus with diabetic chronic kidney disease
CPT/HCPCS: 36415; 80053; 83036

== ENCOUNTER 2025-03-27 09:52 | Outpatient (AMB) | payer MEDICARE, OTHER, SELFPAY ==
--- NOTE | 2025-03-27 09:58 | MHC.PC.OV ---
Vital Signs 03/27/25 10:02 Height 5 ft 10 in Weight 230 lb 8 oz BMI 33.1 BP 138/61 Blood Pressure Location Lt brachial Position Sitting Respiration 16 Pulse 63 Pulse Source Pulse Oximeter Temp 97.4 F Temp Source Oral Pulse Oximetry (%) 98 Oxygen Delivery Method Room Air Intake Visit Reasons: DM Intake Note: patient here for follow up on DM Senior Operator Required: No Allergies No Known Allergies (No Known Allergies*) Allergy (Verified 03/27/25 10:01) Tobacco use date assessed: 03/27/25 Fall risk assessment: No Falls in past year Last assessed Fall Risk: 03/27/25 Dental Screening Dental Screen Date: 03/27/25 Did you have a dental visit in the last 12 months?: Yes Did you have a dental problem in the last 6 months where you did not have access to dental care?: No Was dental information given to patient?: Patient has dentist HPI HPI Comments History of Present Illness Details The patient is an 79 year old male with a past medical history of type 2 diabetes, hypertension, atrial fibrillation, CAD, CKD, anemia, ANURADHA, barretts esophagus presenting for follow up CV: On amiodarone, furosemide (changed to q other day), toprol, xarelto, crestor, aldactone. UTD cardiology. Blood pressure is controlled. Denies chest pain, shortness of breath. Type 2 diabetes: Trulicity 3mg, jardiance 25mg, januvia, glipizide 10mg twice daily and actos 30mg daily. A1C 6.5% from 11/2024 6.7% from 9.9 from 7.3%. Checks once weekly. Sees nephrology-Savanah Estrada. Cr is stable. Denies hypoglycemia. Active taking care of ANURADHA-compliant with CPAP. Follows in April. Mild elevation in psa. This is stable ROS CONSTITUTIONAL: Denies weight loss, fever and chills. HEENT: Denies changes in vision and hearing. RESPIRATORY: Denies SOB and cough. CV: Denies palpitations and CP GI: Denies abdominal pain, nausea, vomiting and diarrhea. : Denies dysuria and urinary frequency. MSK: Denies new myalgia and joint pain. SKIN: Denies rash and pruritus. NEUROLOGICAL: Denies headache PSYCHIATRIC: Denies recent changes in mood. PHYSICAL EXAM: GENERAL: Alert and oriented x 3. NAD EYES: EOMI. Anicteric. HENT: Moist mucous membranes. No scleral icterus. No cervical lymphadenopathy. LUNGS: Clear to auscultation bilaterally. CARDIOVASCULAR: Regular rate and rhythm. No murmur. No JVD. ABDOMEN: Soft, non-tender +bs EXTREMITIES: No edema. Non-tender. SKIN: No rashes or lesions. Warm. NEUROLOGIC: No focal neurological deficits. CN II-XII grossly intact PSYCHIATRIC: Cooperative. Appropriate mood and affect [facility] Medical History CKD (chronic kidney disease), stage IV HLD (hyperlipidemia) Hypertension Paroxysmal atrial fibrillation Type 2 diabetes mellitus Surgical History History of colonoscopy (~03/03/13) Family History Father Heart attack Mother Diabetes Brother Substance abuse Alcoholism and drug addiction in family Social History Housing: Condominium Alcohol intake: current Alcohol intake frequency: holidays/special occasions only Patient Tobacco Use Status: Former Tobacco user e-Cigarette/Vaping Use: Former Use Second Hand Smoke Exposure: No service: No Current occupational status: retired Cognitive needs: No Hearing needs: No Vision needs: Yes (rx glasses) Questionnaire Thrive Questionnaire Date Thrive assessed: 12/12/24 I am a: Patient What is your living situation today?: I have a steady place to live Within the past 12 months, did the food you bought not last and you didn't have the money to get more?: Never true Within the past 12 months, did you worry whether your food would run out before you got money to buy more?: Never true Do you have trouble paying for medicines?: No Do you have trouble getting transportation to medical appointments?: Yes Do you have trouble paying your heating and electricity bill?: No Do you have trouble taking care of your child, family member or friend?: Yes Do you have trouble with day-to-day activities such as bathing, preparing meals, shopping, managing finances, etc.?: No Are you currently unemployed and looking for a job?: No Are you interested in more education?: No Currently or been in a relationship where the following occur: No concerns reported THRIVE Score: 1 TORO-7 AMB Questionnaire TORO-7 Date TORO - 7 assessed: 09/15/24 Source: Developed by Drs. Rey Bonilla, Bhavana Hernandez, Ciro Hong and colleagues, with an educational maria l from [employer] (formerly [employer]). Physical exam (Primary Care) Vital Signs: Last Vital Signs Temp 97.4 F 03/27/25 10:02 Pulse 63 03/27/25 10:02 Resp 16 03/27/25 10:02 BP 138/61 03/27/25 10:02 Pulse Ox 98 03/27/25 10:02 Oxygen Delivery Method Room Air 03/27/25 10:02 BMI result Body Mass Index 33.1 Tobacco/Smoking Status: Tobacco use Status Tobacco use date assessed 03/27/25 03/27/25 10:05 Patient Tobacco Use Status Former Tobacco user 03/27/25 09:59 e-Cigarette/Vaping Use Former Use 03/27/25 09:59 Thrive Assessment: Date of Thrive Assessment Date Thrive assessed 12/12/24 03/27/25 09:59 Currently or been in a relationship where the following occur: No concerns reported Coding Level of Care Code Add On Preventative Visit Only Diagnoses Controlled diabetes mellitus E11.9 Paroxysmal atrial fibrillation I48.0 CKD (chronic kidney disease), stage IV N18.4 Elevated PSA R97.20 Assessment & Plan Assessment & Plan (1) Controlled diabetes mellitus: Code(s): E11.9 - Type 2 diabetes mellitus without complications Category: Medical (2) Paroxysmal atrial fibrillation: Code(s): I48.0 - Paroxysmal atrial fibrillation Category: Medical (3) CKD (chronic kidney disease), stage IV: Code(s): N18.4 - Chronic kidney disease, stage 4 (severe) Category: Medical (4) Elevated PSA: Code(s): R97.20 - Elevated prostate specific antigen [PSA] Category: Medical Plan 79 year old male for follow up Diabetes is well controlled. Efforts toward weight loss. Has recently gained weight CV-blood pressure is well controlled Elevated PSA-check in 3 months Orders: Orders Comprehensive Met. Panel 3 Months E11.9 - Type 2 diabetes mellitus without complications, N18.4 - Chronic kidney disease, stage 4 (severe), R97.20 - Elevated prostate specific antigen [PSA] Lipid Panel 3 Months E11.9 - Type 2 diabetes mellitus without complications, N18.4 - Chronic kidney disease, stage 4 (severe), R97.20 - Elevated prostate specific antigen [PSA] Prostate Specific Antigen 3 Months E11.9 - Type 2 diabetes mellitus without complications, N18.4 - Chronic kidney disease, stage 4 (severe), R97.20 - Elevated prostate specific antigen [PSA] Complete Blood Count Auto Diff 3 Months E11.9 - Type 2 diabetes mellitus without complications, N18.4 - Chronic kidney disease, stage 4 (severe), R97.20 - Elevated prostate specific antigen [PSA] Referrals Cologuard Test Z12.11 - Encounter for screening for malignant neoplasm of colon, Z12.12 - Encounter for screening for malignant neoplasm of rectum Medications: Carson Mounjaro (tirzepatide) transition from trulicity 3mg weekly 7.5 mg (0.5 mL) subcut QWEEK 6 mL 1RF NS E11.9 - Type 2 diabetes mellitus without complications
[2025-03-27 10:02] VITALS: BP 138/61; PULSE 63; RESP 16; TEMP 36.3; O2SAT 98; BMI 33.1
--- OUTSIDE RECORDS SUMMARY | 2025-03-27 12:52 | XMS_ITS | Patient Health Record ---
Author Organization [facility] Address [address] [place] [address] Care Team Providers Care Drilling Machine Runner Name Role Phone Susanne (RETIRED) Andres MORALES Primary Care Provide r Farhat Molina Jr Unavailable Allergies Allergen (clinical drug ingredient) Drug/Non Drug Allergy documented on EMR Reaction Allergy Type Onset Date Status seasonal allergies (uncoded) Unknown Allergy Active Reason For Referral No Information Medications Medication SIG (Take, Route, Frequency, Duration) Notes Start Date End Date Status Rosuvastatin Calcium 40 MG Tablet TAKE 1 TABLET BY MOUTH EVERYDAY AT BEDTIME Oral; Duration: 90 Active MiraLax (colon prep) 8.3 ounce ((238) grams mixed with Gatorade or Crystal Light orally begin at 5:00 p.m. the day before the procedure; Duration: 1 day 02/02/2019 Active Xarelto 20 MG Tablet TAKE 1 TABLET BY [facility] EVERY DAY Oral; Duration: 90 Active Multivitamins Active amLODIPine Besylate 1 tablet Orally Once a day Active Omeprazole Active metFORMIN HCl 500 MG Tablet 2 tablets Or ally twice a day Active glipiZIDE 2 tablets twice a day Active Lisinopril Active Atenolol Active Immunizations Vaccine Route Administration Date Status Comme nts Influenza Unknown 12/27/2018 Administered Social History Social History Additional Details Category Social Info Options Details Miscellaneous: Marital status: . 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) use of anticoagulants (Z79.01) Active confirmed Problem Long-term current use of drug therapy (518455063) Long-term current use of high risk medication other than anticoagulant (Z79.899) Active confirmed Plan Of Treatment Future Test Test Name Order Date COLONOSCOPY 10/26/2012 COLONOSCOPY 02/02/2019 Insurance Providers Payer Name Payer Address Payer Phone Subscriber Number Group Number Insured Name Patient Relationship to Insured Coverage Start Date Coverage End Date MEDICARE OF [place] [address] [place] [address] [id number] GUTIERREZ MORALES Self - patient is the insured [facility] [employer] [address] [place] [address] [id number] GUTIERREZ MORALES Self - patient is the insured Medical (General) History Medical History History ICD Code colonoscopy 03/03/13, tubular adenoma, fi ve-year followup recommended. 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
--- OUTSIDE RECORDS SUMMARY | 2025-03-27 12:52 | XMS_ITS | Encounter Summary ---
Author Organization [facility] Address [address] [place] [address] Phone Care Team Providers Care Hair Mixer Name Role Phone Andres Skinner MD Primary Care Provider Dwaine White MD Unavailable [phone] Encounter Details Date Type Department Care Team (Late st Contact Info) Description 08/20/2021 [facility] [address] [place] [address] Social History Tobacco Use Types Packs/Day Years [...] Description 05/04/2025 12:20 PM EST Office Visit [facility] [address], [address] [place] [id number] Rey Tavares MD, [place] [address], [address] [place] [address] [email or web address] 08/07/2025 11:40 AM EDT Office Visit [facility] [place] [address] Floor, [address] [place] [phone] Leonides Gutierrez MD [address] [place] [address], [address] [place] [address] [email or web address] documented as of this encounter Visit Diagnoses Not on filedocumented in this encounter Care Teams Hair Mixer Relationship Specialty Start Date End Date Andres Skinner MD [address] [place] [address] PCP - General 01/14/17 Dwaine White MD [address] [place] [address] [email or web address] Historical LMR Provider 01/14/17 documented as of this encounter Additional Source Comments The information contained in this document represents components of the legal health record. It is not the complete legal health record.[facility]
--- OUTSIDE RECORDS SUMMARY | 2025-03-27 12:52 | XMS_ITS | Encounter Summary ---
Author Organization [facility] Address [address] [place] [address] Phone Care Team Providers Care Meter Installer Name Role Phone Andres Skinner MD Primary Care Provider Dwaine White MD Unavailable [phone] Encounter Details Date Type Department Care Team (Late st Contact Info) Description 05/07/2021 Procedure Pass [facility] [address] [place] [address] Social History Tobacco Use Types Packs/Day Years [...] Description 05/04/2025 12:20 PM EST Office Visit [facility] [address] [facility], [address] [place] [address] Rey Tavares MD, [place] [address] [facility], [address] [place] [address] jose 08/07/2025 11:40 AM EDT Office Visit [facility] [address] [facility], [address] [place] [address] Leonides Gutierrez MD [address] [facility], [address] [place] [address] [email or web address] documented as of this encounter Visit Diagnoses Not on filedocumented in this encounter Care Teams Meter Installer Relationship Specialty Start Date End Date Andres Skinner MD [address] [place] [address] PCP - General 01/14/17 Dwaine White MD [address] [place] [address] [email or web address] Historical LMR Provider 01/14/17 documented as of this encounter Additional Source Comments The information contained in this document represents components of the legal health record. It is not the complete legal health record.[facility]
--- OUTSIDE RECORDS SUMMARY | 2025-03-27 12:52 | XMS_ITS | Clinical Summary ---
Author Organization [facility] Address [address] [facility] [address] [place] [address] Care Team Providers Care Supervisor Ditching Name Role Phone Unavailable Primary Care Provider [...] patient's age to complete this topic Insurance [facility] MEDICARE
--- OUTSIDE RECORDS SUMMARY | 2025-03-27 12:52 | XMS_ITS | Clinical Summary ---
Author Organization [facility] Address [address] [address] Phone Care Team Providers Care Highway Painter Helper Name Role Phone Ashly Baltazar MD Primary Care Provider [phone] Allergies No known active allergies Medications Multiple [...] 90 tablet 3 5 11/21/19 26 Active Active Problems Problem Noted Date Diagnosed [...] Date Type Department Care Team Description 02/01/2025 Orders Only [facility] [address] [facility] [address] [place] [address] Savanah Estrada ARNP Chronic kidney disease, stage 4 (severe) (HCC) (Primary Dx); Hypertension from Last 3 Months Immunizations Immunization Administration Dates Next Due Lotus Tissue Repair SARS-COV-2 07/01/2020,06/10/2020 TD Preservative Free 09/23/2016 Family [...] [facility] [address] [phone] Savanah Estrada ARNP [address] [phone] Health Maintenance Due Date Last Done Comments [...] Procedure Name Priority Date/Time Associated Diagnosis Comments HEMOGLOBIN A1C Routine 11/15/2023 11:40 AM EDT Chronic kidney disease, stage 4 (severe) (HCC) from Last 3 Months or Most Recently Relevant to Health Maintenance Results * (ABNORMAL) Hemoglobin A1c (11/15/2023 11:40 AM EDT) Hemoglobin A1C 11.8(H) 4.8 - 5.6 % [facility] Comment: Prediabetes: 5.7 - 6.4 Diabetes: >6.4 Glycemic control for adults with diabetes: <7.0 Blood specimen (specimen) Venous blood / Unknown 11/15/2023 11:40 AM EDT 11/15/2023 Anya Naik MD LAB BLOOD ORDERABLES Final Result [facility] [place] [address] [place] [phone] from Last 3 Months or Most Recently Relevant to Health Maintenance Insurance Medicare [facility] Medicare [facility] Care Teams Highway Painter Helper Relationship Specialty Start Date End Date Ashly Baltazar MD [address] [place] [address], [address] [place] [address] PCP - General Internal Medicine 07/24/24
--- OUTSIDE RECORDS SUMMARY | 2025-03-27 12:52 | XMS_ITS | Encounter Summary ---
Author Organization [facility] Address [address] [facility] [address] [place] [address] Phone Care Team Providers Care Director Of Global Sales Name Role Phone Ashly Baltazar MD Primary Care Provider [phone] Reason for Visit * Reason Comments Med Refill Encounter Details Date Type Department Care Team (Late Contact Info) Description 07/05/2023 Refill [facility] [address] [facility] [address] [place] [phone] Marlo Pizano MD [address] [place] [address], [address] [phone] Hypertension (Primary Dx) Social History Tobacco Use [...] Visit [facility] [address] [facility] [address] [place] [address] Savanah Estrada ARNP [address] [facility] [address] [place] [address] documented as of this encounter Visit Diagnoses Diagnosis Hypertension- Primary documented in this encounter Care Teams Director Of Global Sales Relationship Specialty Start Date End Date Ashly Baltazar MD [address] [place] [address], [address] [place] [address] PCP - General Internal Medicine 07/24/24 documented as of this encounter
--- OUTSIDE RECORDS SUMMARY | 2025-03-27 12:53 | XMS_ITS | Clinical Summary ---
Author Organization [facility] Address [address] [address] Phone Care Team Providers Care Senior Applications Engineer Name Role Phone Andres Skinner MD Primary Care Provider Dwaine White MD Unavailable [phone] Allergies No known active allergies Medications glipiZIDE (GLUCOTROL) 5 MG tablet Take 10 mg by mouth 2 (two) times a day before meals. Active rosuvastatin (CRESTOR) 40 MG tablet Take 40 mg by mouth daily. Active omeprazole (PRILOSEC) 20 mg TbEC Take 20 mg by mouth as needed. Active cholecalciferol (VITAMIN D3) 5,000 unit capsule Take 5,000 Units by mouth daily. Active uhooszhc-ujy-bwv lewis fumarate 9 mg iron/15 mL Liqd Active vit C,P-wjhfrs-vvxoj nthin-minerals (PRESERVISION AREDS-2) capsule Act baldomero furosemide (LASIX) 20 MG tablet Take 20 mg by mouth. Active rivaroxaban (XARELTO) 15 mg Tab Take 15 mg by mouth daily with dinner. Active amiodarone (PACERONE) 100 MG tabletIndication s:Paroxysmal atrial fibrillation Take 1 tablet (100 mg total) by mouth daily. 9 Active SITagliptin (JANUVIA) 100 MG tablet Take 100 mg by mouth daily. Active spironolactone (ALDACTONE) 50 MG tablet 25 mg. 2 Active JARDIANCE 25 mg tablet Take 25 mg by mouth daily. 2 Active metoprolol succinate (TOPROL-XL) 50 MG 24 hr tabletIndication s:Medication refill take 1 and 1/2 tablets by mouth daily 135 tablet 3 4 Active Additional Information Patient taking differently: 50 mgOral Every morning,Pt takes half tab daily 25 mg, Reported on 02/01/2025 fexofenadine (LORETTA) 60 MG tablet Take 60 mg by mouth daily. Dose unknown Active TRULICITY 3 mg/0.5 mL subcutaneous injection Inject 3 mg under the skin every 7 days. 5 Active Active Problems Problem Noted Date Diagnosed [...] done fairly soon. They are going to [place] in several weeks and will be there [...] be excluded at some point. Atherosclerosis of [place] ronary artery of [place] heart without angina pectoris 02/24/2017 Overview (02/07/2019): [...] see the work-up that was done at [facility] before deciding about next steps. I know [...] 1:17 PM EST): Lipids (panel scanned in [employer], dated 08/01/20) fairly well controlled on Crestor [...] Description 02/01/2025 11:00 AM EST Office Visit [facility] [address] [place] [address] [address]rd Floor, [address] [place] [address] Leonides Gutierrez MD Atrial fibrillation, unspecified type (Primary Dx); Benign essential hypertension; Atherosclerosis of [place] coronary artery of [place] heart without angina pectoris 01/26/2025 8:22 AM EDT - 01/26/2025 11:59 PM EDT Hospital Encounter [facility] [address] [place] [address] Jacqui Bethea DNP Discharge Disposition: Home or [...] Description 05/04/2025 12:20 PM EST Office Visit [facility] [address] [facility], [address] [place] [id number] Rey Tavares MD, [place] [address] [place] [address], [address] [address] jose 08/07/2025 11:40 AM EDT Office Visit [facility] [address] 3[address] Floor, [address] [place] [id number] Leonides Gutierrez MD [address] [place] [address], [address] [address] Health Maintenance Due Date Last Done Comments [...] EDT) TSH 2.21 0.27 - 4.20 uIU/mL [facility] Blood 01/26/2025 8:33 AM EDT 01/26/2025 8:38 AM EDT Jacqui Hwang [facility] LAB BLOOD BKR ORDERABLES Final Result Performing Organization Address City/[facility]/ZIP Co de Phone Number [address] [address] * LFTs (hepatic panel) (01/26/2025 8:33 AM EDT) [facility] ALKALINE PHOSPHATASE 68 39 - 117 U/L [facility] TOTAL BILIRUBIN 0.4 0.0 - 1.2 mg/dL [facility] DIRECT BILIRUBIN 0.1 0.0 - 0.2 mg/dL [facility] Bilirubin (Indirect) NOT CALCULATED 0 - 1.5 mg/dL [facility] AST 16 0 - 37 U/L [facility] ALT 16 0 - 40 U/L [facility] TOTAL PROTEIN 7.0 6.5 - 8.0 g/dL [facility] ALBUMIN 3.9 3.9 - 4.8 g/dL [facility] GLOBULIN 3.1 1 - 4.8 g/dL [facility] A/G Ratio 1.26 1.00 - 4.80 RATIO [facility] Blood 01/26/2025 8:33 AM EDT 01/26/2025 8:38 AM EDT Jacqui Hwang [facility] LAB BLOOD BKR ORDERABLES Final Result Performing Organization Address City/[facility]/ZIP Co de Phone Number [address] [address] * (ABNORMAL) Lipid panel (01/26/2025 8:33 AM EDT) [facility] HDL 53 mg/dL [facility] Comment: Interpretation <40 mg/dL: Low HDL cholesterol (major risk factor for CHD) Greater than or equal to 60 mg/dL: High HDL cholesterol ( negative risk factor for CHD) HDL - cholesterol is affected by a number of factors, e.g. smoking, excerise, hormones, sex and age. CHOLESTEROL 164 0 - 240 mg/dL [facility] TRIGLYCERIDES 164(H) 30 - 160 mg/dL [facility] LDL 78 50 - 129 mg/dL [facility] Comment: LDL levels in terms of risk for coronary heart disease: <100 mg/dL: Optimal 100-129 mg/dL: Near or above optimal 130-159 mg/dL: Borderline high 160-189 mg/dL: High >190 mg/dL: Very High CARDIAC RISK RATIO 3.1(L) 3.4 - 5.0 C [facility] Blood 01/26/2025 8:33 AM EDT 01/26/2025 8:38 AM EDT us Jacqui Bethea [facility] LAB BLOOD BKR ORDERABLES Final Result Performing Organization Address City/State/[facility] Co de Phone Number [address] [address] * (ABNORMAL) Basic metabolic panel (01/26/2025 8:33 AM EDT) SODIUM 142 133 - 146 mmol/L [facility] CHLORIDE 107 96 - 108 mmol/L [facility] POTASSIUM 5.0 3.3 - 5.1 mmol/L [facility] CO2 22 21 - 35 mmol/L [facility] BUN 42(H) 6 - 19 mg/dL [facility] CREATININE 2.40(H) 0.5 - 1.5 mg/dL [facility] GLUCOSE 173(H) 70 - 99 mg/dL [facility] CALCIUM 9.2 8.4 - 10.3 mg/dL [facility] EGFR 26(L) >59 mL/min/1.7 3m2 [facility] Comment:Estimated glomerular filtration rate calculated using the CKD-EPI refit equation. ANION GAP 18 10 - 20 mmol/L [facility] Blood 01/26/2025 8:33 AM EDT 01/26/2025 8:38 AM EDT us Jacqui Bethea DNP LAB BLOOD BKR ORDERABLES Final Result [facility] [address] [place], [place] [phone] from Last 3 Months Insurance MEDICARE PART A & B MEDICARE SUPPLEMENT MEDICARE PART A & B [facility] MEDICARE SUPPLEMENT MEDICARE PART A & B [facility] MEDICARE SUPPLEMENT MEDICARE PART A & B [facility] MEDICARE SUPPLEMENT MEDICARE PART A & B [facility] MEDICARE SUPPLEMENT MEDICARE PART A & B [employer] MEDICARE SUPPLEMENT MEDICARE PART A & B [employer] MEDICARE SUPPLEMENT MEDICARE PART A & B [employer] MEDICARE SUPPLEMENT MEDICARE PART A & B [employer] MEDICARE SUPPLEMENT Care Teams Senior Applications Engineer Relationship Specialty Start Date End Date Andres Skinner MD [address] [place] [phone] PCP - General 01/14/17 Dwaine White MD [address] [place] [phone] [email or web address] LMR Provider 01/14/17 Additional Source Comments The information contained in this document represents components of the legal health record. It is not the complete legal health record.[facility]
== END 2025-03-27 10:48 | disposition home or self-care (01) ==
LOC: HO.HMCFM 09:53
PROVIDERS: PCP Internal Medicine; Visit Provider Internal Medicine
DX: E11.9 Type 2 diabetes mellitus without complications (principal); I48.0 Paroxysmal atrial fibrillation; N18.4 Chronic kidney disease, stage 4 (severe); R97.20 Elevated prostate specific antigen [PSA]

== ENCOUNTER → 2025-03-27 09:52 | Outpatient (BNVA) | payer MEDICARE, OTHER, SELFPAY | PROVIDERS: PCP Internal Medicine; Visit Provider Internal Medicine | DX: E11.22 Type 2 diabetes mellitus with diabetic chronic kidney disease (principal); N18.4 Chronic kidney disease, stage 4 (severe); I48.0 Paroxysmal atrial fibrillation; R97.20 Elevated prostate specific antigen [PSA] | CPT/HCPCS: 99212 ==